=== PATIENT | male | born 1945 | race Hispanic/Latino ===

== ENCOUNTER 2017-08-07 01:42 | Inpatient (IN) | payer MEDICARE, MEDICAID ==
[2017-08-07] MEDS ORDERED: methylPREDNISolone Sod Succ/PF 125 MG/2 ML VIAL ONE (01:59)
[2017-08-07 02:08] LABS: #Basophils 0.1 thou/uL (0.0-0.2); #Eosinphils 0.1 thou/uL (0.0-0.7); #Lymphocytes 1.5 thou/uL (1.20-3.40); #Neutrophils 5.4 thou/uL (1.40-6.50); %Basophils 0.7 % (0.0-1.0); %Eosinophils 1.3 % (0.0-10.0); %Lymphocytes 18.4 % (21.0-51.0); %Monocytes 12.6 % (0.0-10.0); Hemoglobin 16.4 g/dL (14.0-18.0); Mean Corpuscular HGB CONC 33.7 g/dL (32.0-36.0); Mean Corpuscular Hemoglobin 31.9 pg (27.0-31.0); Mean Corpuscular Volume 94.8 fl (80.0-94.0); Mean Platelet Volume 7.8 fL (7.4-10.4); Platelet Count 139 thou/uL (130-400); RBC Distribution Width 12.2 % (11.5-14.5); Red Blood Cell (RBC) Count 5.15 mill/uL (4.70-6.10); White Blood Cell (WBC) Count 8.1 thou/uL (4.8-10.8)
[2017-08-07 02:29] LABS: ALT (SGPT) 35 U/L (8-55); AST (SGOT) 17 U/L (5-34); Albumin 4.2 g/dL (3.4-4.8); Alkaline Phosphatase 63 U/L (40-150); Anion Gap 10 mmol/L (10-20); BUN (Urea Nitrogen) 18 mg/dL (8.4-25.7); Bilirubin, Total 0.7 mg/dL (0.2-1.2); CK (CPK) 47 U/L (30-200); Calc. Creatinine Clearance 0 mL/min (70-130); Calcium 9.9 mg/dL (7.8-10.44); Carbon Dioxide 29 mmol/L (23-31); Chloride 102 mmol/L (98-107); Estimated GFR-MDRD 89; Globulin 3.4 g/dL (2.4-3.5); Glucose 129 mg/dL (83-110); Potassium 4.3 mmol/L (3.5-5.1); Protein, Total 7.6 g/dL (5.8-8.1); Sodium 137 mmol/L (136-145)
[2017-08-07 02:32] LABS: CKMB 1.4 ng/mL (0-6.6); Troponin I 0.041 ng/mL (< 0.028)
[2017-08-07] MEDS ORDERED: Albuterol Sulfate 2.5 mg/3 ml Neb NEB PRN (02:51)
[2017-08-07] MEDS ORDERED: Furosemide 20 MG/2 ML VIAL SLOW IVP SCH (03:15)
--- NOTE | 2017-08-07 03:44 | HP ---
PRESENTING COMPLAINT: Shortness of breath. HISTORY OF PRESENT ILLNESS: Mr. Jim Landry is a 72-year-old male who presented to the emergency room with a 2-week history of shortness of breath and wheezing. He reports his symptoms have been progressively getting worse and he was at Urgent Care about a week ago where he was treated with Augmentin and prednisone, and sent home; however, initially he got better, but his symptoms returned again and decided to present to the emergency room. He denies fevers, but he reports some chills. He denies chest pain, palpitations, PND, orthopnea, or lower extremity edema. He has no history of CHF, hypertension, and he is not on any home medications. He is a chronic smoker, although he has been trying to cut down and currently smokes about 2 cigarettes daily. He has never been diagnosed with COPD or asthma. PAST MEDICAL HISTORY: None. PAST SURGICAL HISTORY: None. FAMILY HISTORY: Reviewed and noncontributory. SOCIAL HISTORY: Does not drink alcohol. Smokes cigarettes. Denies use of illicit drugs. ALLERGIES: None. REVIEW OF SYSTEMS: 12-point review of systems conducted and negative except as stated in the HPI. PHYSICAL EXAMINATION: VITAL SIGNS: Stable. Oxygen saturation at 100% on room air. GENERAL: Not in acute distress. Lying comfortably in bed and receiving a nebulizer treatment. HEENT: Normocephalic, atraumatic. Not pale, anicteric. Moist mucous membranes. PERRLA, EOMI. RESPIRATORY: Minimal wheezing bilaterally. No crackles appreciated. Otherwise vesicular breath sounds. CARDIOVASCULAR: S1 and S2 only. Regular rate and rhythm. No murmurs, rubs, or gallop. ABDOMEN: Soft, nontender, nondistended. Bowel sounds normoactive. No hepatosplenomegaly. NEUROLOGIC: Alert and well oriented. No focal deficits. PSYCHIATRIC: Normal mood and affect. SKIN: Warm, dry, well-perfused. No rashes or lesions. PSYCHIATRIC: Normal mood and affect. SIGNIFICANT LABORATORY AND DIAGNOSTIC DATA: Troponin 0.041, BNP 776. Chest x-ray shows some haziness in bilateral lung lara. EKG: Left bundle branch block. ASSESSMENT AND PLAN: 1. Shortness of breath. This is likely from a previously undiagnosed chronic obstructive pulmonary disease exacerbation. The patient has been started on nebulizer therapy. We will place him on p.r.n. albuterol and scheduled DuoNeb, IV ceftriaxone and azithromycin, IV Solu-Medrol 40 mg q.6 hours. We will also obtain blood cultures and possible pulmonary consult depending on his response in the morning. He will very likely need an outpatient pulmonary function test. 2. Elevated troponin: He is currently chest pain free. This is likely a type 2 [id number] myocardial infarction from demand ischemia. He has no history of coronary artery disease or congestive heart failure. We will trend troponin and he might require a stress test, likely on outpatient basis. 3. Elevated BNP. No history of heart failure. He has been given one dose of furosemide. We will monitor his response and re-evaluate. 4. Tobacco abuse. The patient has been counseled on cessation. CODE STATUS: FULL CODE. MTDD
[2017-08-07 03:55] LABS: Anion Gap 9 mmol/L (10-20); BUN (Urea Nitrogen) 18 mg/dL (8.4-25.7); Calc. Creatinine Clearance 0 mL/min (70-130); Calcium 9.5 mg/dL (7.8-10.44); Carbon Dioxide 30 mmol/L (23-31); Chloride 103 mmol/L (98-107); Estimated GFR-MDRD Greater than 90; Glucose 142 mg/dL (83-110); Potassium 4.3 mmol/L (3.5-5.1); Sodium 138 mmol/L (136-145)
[2017-08-07] MEDS: Azithromycin 500 MG in Sodium Chloride 0.9% 250 ML 250 ML IVPB SCH (04:10)
[2017-08-07] MEDS: cefTRIAXone\\ROCEPHIN 1 GM, Syringe 0.4 ML in Sterile Water 9.6 ML SLOW IVP SCH (05:06)
[2017-08-07 06:23] LABS: Troponin I 0.028 ng/mL (< 0.028)
--- NOTE | 2017-08-07 08:05 | RAD ---
SINGLE VIEW OF CHEST: Date: 08/07/17 COMPARISON: None. HISTORY: Difficulty breathing for 3 weeks and dyspnea. FINDINGS: Single view of the chest shows cardiomediastinal silhouette which is upper limits of normal in size. There is no evidence of consolidation, mass, or pleural effusion. Increased interstitial lung marking s are present. IMPRESSION: No evidence of acute cardiopulmonary disease. POS: [facility]
[2017-08-07] MEDS: guaiFENesin ER 600 MG TAB PO SCH ×2 (08:15→20:17)
[2017-08-07] MEDS ORDERED: cefTRIAXone\\ROCEPHIN 1 GM in Sodium Chloride 0.9% 100 ML IVPB SCH (09:00)
[2017-08-07] MEDS ORDERED: Prevnar 13-Val Conj/PF 0.5 ML SYRINGE IM ONE (09:00)
[2017-08-07] MEDS ORDERED: predniSONE 20 MG TAB PO SCH (09:00)
[2017-08-07 13:30] LABS: Troponin I 0.018 ng/mL (< 0.028)
[2017-08-07] MEDS ORDERED: Regadenoson 0.4 MG/5 ML SYRINGE ONE (14:46)
[2017-08-07 19:12] LABS: Troponin I 0.017 ng/mL (< 0.028)
[2017-08-08] MEDS: cefTRIAXone\\ROCEPHIN 1 GM, Syringe 0.4 ML in Sterile Water 9.6 ML SLOW IVP SCH (04:52)
[2017-08-08] MEDS: Azithromycin 500 MG in Sodium Chloride 0.9% 250 ML 250 ML IVPB SCH (04:58)
[2017-08-08 05:18] LABS: Anion Gap 12 mmol/L (10-20); BUN (Urea Nitrogen) 26 mg/dL (8.4-25.7); Calc. Creatinine Clearance 103 mL/min (70-130); Calcium 9.9 mg/dL (7.8-10.44); Carbon Dioxide 30 mmol/L (23-31); Chloride 101 mmol/L (98-107); Estimated GFR-MDRD Greater than 90; Glucose 142 mg/dL (83-110); Potassium 4.2 mmol/L (3.5-5.1); Sodium 139 mmol/L (136-145)
[2017-08-08] MEDS: guaiFENesin ER 600 MG TAB PO SCH ×2 (08:40→20:49)
--- NOTE | 2017-08-08 10:35 | NM ---
CARDIAC SPECT: HISTORY: A 72-year-old male with shortness of breath, CHF, and hypertension. Smoker. TECHNIQUE: A myocardial perfusion scan was performed using the single isotope two day protocol with 33 millicuri es technetium 99m sestamibi injected intravenously for stress and rest images. Pharmacologic stress with Lexiscan was monitored and interpreted by Dr. Hadley. FINDINGS: A large fixed defect is seen involving the anterolateral, lateral, and inferolateral keenan. There is a reversible defect in the anteroseptal and septal keenan. There is suggestion of a fixed defect in t he intraseptal wall. GATED SPECT LVEF: 18% WALL MOTION EXAM: Global hypokinesis. IMPRESSION: 1. Reversible ischemia in the anteroseptal and septal keenan. 2. Scarring in the lateral, anterolateral, inferolateral keenan, and probably inferoseptal wall. POS: [facility]
[2017-08-08] MEDS ORDERED: Furosemide 40 MG/4 ML VIAL SLOW IVP SCH (11:30)
[2017-08-08] MEDS ORDERED: Potassium Chloride 20 MEQ TAB PO SCH ×2 (11:30)
[2017-08-08] MEDS ORDERED: Losartan 25 MG TAB PO SCH ×2 (11:45)
[2017-08-08] MEDS ORDERED: Aspirin 81 mg Enteric Coated Tablet PO SCH (11:45)
--- NOTE | 2017-08-08 13:02 | PDOC.PN ---
- Subjective Encounter Start Date: 08/08/17 Encounter Start Time: 13:02 Pt seen for followup re: copd exacerbation. Denies chest pain. Shortness of breath is better. No fevers or chills. - Objective Vital Signs & Weight: Vital Signs (12 hours) Temp Pulse Resp BP Pulse Ox 08/08/17 11:33 97.6 F 91 19 129/73 93 L 08/08/17 08:40 97.4 F L 99 20 137/81 08/08/17 03:57 97.4 F L 99 20 130/81 96 Weight Weight 187 lb 12.8 oz I&O: 08/07/17 08/08/17 08/09/17 06:59 06:59 06:59 Intake Total 260 1341 Output Total 950 Balance -690 1341 Result Diagrams: 08/07/17 01:57 08/08/17 03:59 Phys Exam - Physical Examination Constitutional: NAD HEENT: PERRLA, moist MMs, sclera anicteric, oral pharynx no lesions Neck: no nodes, no JVD, supple, full ROM Respiratory: no wheezing, no rales, no rhonchi, clear to auscultation bilateral Cardiovascular: RRR, no rub Gastrointestinal: soft, non-tender, no distention, positive bowel sounds Musculoskeletal: pulses present Neurological: moves all 4 limbs Psychiatric: normal affect Skin: no rash Dx/Plan (1) COPD exacerbation Code(s): J44.1 - CHRONIC OBSTRUCTIVE PULMONARY DISEASE W (ACUTE) EXACERBATION Status: Acute (2) CHF (congestive heart failure) Code(s): I50.9 - HEART FAILURE, UNSPECIFIED Status: Acute Qualifiers: Heart failure type: systolic Comment: receiving furosemide (3) CAD (coronary artery disease) Code(s): I25.10 - ATHSCL HEART DISEASE OF [place] CORONARY ARTERY W/O ANG PCTRS Status: Chronic Comment: reversible ischemia on stress test, cardiology consulted (4) Cardiomyopathy Code(s): I42.9 - CARDIOMYOPATHY, UNSPECIFIED Status: Chronic Comment: started on beta leonidas and ACEI by cardiology service (5) Tobacco abuse Code(s): Z72.0 - TOBACCO USE Status: Chronic Comment: counseled - Plan * . Review of Systems - Review of Systems Constitutional: negative: fever, chills, sweats, weakness, malaise Respiratory: Cough, Dry, SOB with Excertion. negative: Shortness of Breath, Hemoptysis, Pleuritic Pain, Sputum, Wheezing Cardiovascular: negative: chest pain, palpitations, orthopnea, paroxysmal nocturnal dyspnea, edema, light headedness Gastrointestinal: negative: Nausea, Vomiting, Abdominal Pain, Diarrhea, Constipation, Melena, Hematochezia Skin: negative: Rash, Lesions, Primitivo, Bruising - Medications/Allergies Allergies/Adverse Reactions: Allergies Allergy/AdvReac Type Severity Reaction Status Date / Time No Known Allergies Allergy Verified 08/07/17 04:49 Medications: Current Medications Albuterol Sulfate (Ventolin) 2.5 mg NEB [id number] PRN PRN Reason: SOB &/or Wheezing Aspirin (Ecotrin) 81 mg PO DAILY [facility] Aspirin (Ecotrin) 81 mg PO NOW [facility] Stop: 08/08/17 13:45 Last Admin: 08/08/17 12:15 Dose: 81 mg Carvedilol (Coreg) 3.125 mg PO BID-WM [facility] Furosemide (Lasix) 40 mg SLOW IVP NOW [facility] Stop: 08/08/17 13:30 Last Admin: 08/08/17 12:15 Dose: 40 mg Guaifenesin (Mucinex) 600 mg PO Q12HR [facility] Last Admin: 08/08/17 08:40 Dose: 600 mg Azithromycin 500 mg/ Sodium (Chloride) 250 mls @ 250 mls/hr IVPB Q24HR [facility] Stop: 08/09/17 04:59 Last Admin: 08/08/17 04:58 Dose: 250 mls Ceftriaxone Sodium 1 gm/ (Syringe 0.4 ml/ Sterile Water) 10 mls @ 120 mls/hr SLOW IVP 0500 [facility] Last Admin: 08/08/17 04:52 Dose: 10 mls Losartan Potassium (Cozaar) 50 mg PO DAILY [facility] Losartan Potassium (Cozaar) 50 mg PO NOW [facility] Stop: 08/08/17 13:45 Last Admin: 08/08/17 12:15 Dose: 50 mg Methylprednisolone Sodium Succinate (Solu-Medrol) 40 mg IVP Q6HR [facility] Last Admin: 08/08/17 12:15 Dose: 40 mg Potassium Chloride (K-Dur) 40 meq PO NOW [facility] Stop: 08/08/17 13:30 Last Admin: 08/08/17 12:15 Dose: 40 meq Sodium Chloride (Flush - Normal Saline) 10 ml IVF Q12HR [facility] Last Admin: 08/08/17 08:41 Dose: 10 ml Sodium Chloride (Flush - Normal Saline) 10 ml IVF PRN PRN PRN Reason: Saline Flush
--- NOTE | 2017-08-08 14:04 | CON ---
DATE OF CONSULTATION: 08/08/2017 REASON FOR CONSULTATION: Congestive heart failure, abnormal stress test. HISTORY OF PRESENT ILLNESS: Mr. Fernandez is a 72-year-old gentleman. The patient states he has been short of breath for the last couple of weeks, but it worsened and he came to the emergency room. He has been found to have a severely abnormal nuclear medicine stress test as will be outlined below. The patient does not have chest pain or pressure, just shortness of breath. He says 2 weeks ago, he reduced his smoking to two cigarettes a day, previously smoked quite a bit of cigarettes but has decr eased for the last 2 weeks. He received intravenous steroids here with some improvement. He also had some wheezing as an outpati ent. PAST SURGICAL HISTORY: Negative. FAMILY HISTORY: Negative for heart disease at a young age. PAST MEDICAL HISTORY: Of note of diabetes. SOCIAL HISTORY: As outlined above cigarettes. ALLERGIES: None. REVIEW OF SYSTEMS: Constitutional: No significant weight gain or loss. Vision: No changes. Heari ng: No changes. Pulmonary: Positive for cough and wheezing. Cardiac: No chest pain. Gastrointes tinal: No nausea, vomiting, or diarrhea. Skin: No rashes. Neurologic: No unilateral weakness or numbness. Psychiatric: No unusual depression or anxiety. PHYSICAL EXAMINATION: GENERAL: This is a pleasant 72-year-old gentleman, is coughing intermittently very severely. VITAL SIGNS: He is afebrile, temperature 97.4, blood pressure 137/81, pulse 90 and it is regular. LUNGS: Some rhonchi, no wheezing. CARDIOVASCULAR: Normal S1, normal S2. ABDOMEN: Soft, nontender. EXTREMITIES: No clubbing, cyanosis or edema. Peripheral pulses are intact. SKIN: Warm and dry. PERTINENT LABORATORY DATA: BNP 774, potassium is 4.2, creatinine 0.8. Troponin is 0.028. IMAGING: Chest x-ray, no acute findings. A nuclear medicine stress test revealed an ejection fracti on of 18%, very large fixed defect of the anterolateral, inferolateral and inferoseptal wall, some re versible ischemia in the anterior wall. EKG: Sinus rhythm with left ventricular hypertrophy, repolarization and T-wave inversions in the inf erior leads. ASSESSMENT: 1. Congestive heart failure, systolic, likely acute on chronic. 2. Likely severe underlying coronary artery disease. 3. Probable some degree of chronic obstructive pulmonary disease. PLAN: 1. Start angiotensin receptor blockers. We will avoid SIVA inhibitors as he already has a severe cou gh. 2. Low-dose beta blockers. 3. Furosemide and potassium. 4. We will need to proceed to cardiac catheterization. We will need to further discuss the risk. I discussed the procedure to some degree with the patient, he is [place] speaking only. We will come back later this afternoon and discuss further to see if the cough is improved prior to proceeding the catheterization.
[2017-08-08] MEDS: Furosemide 20 MG/2 ML VIAL SLOW IVP SCH (14:06)
[2017-08-08] MEDS: Carvedilol 3.125 MG TAB PO SCH (17:04)
[2017-08-09] MEDS: Azithromycin 500 MG in Sodium Chloride 0.9% 250 ML 250 ML IVPB SCH (04:27)
[2017-08-09 05:28] LABS: Anion Gap 10 mmol/L (10-20); BUN (Urea Nitrogen) 30 mg/dL (8.4-25.7); Calc. Creatinine Clearance 98 mL/min (70-130); Calcium 9.9 mg/dL (7.8-10.44); Carbon Dioxide 33 mmol/L (23-31); Cardiac Risk 3.7 (Less than 4.5); Chloride 101 mmol/L (98-107); Cholesterol 176 mg/dl (< 200 Desired); Estimated GFR-MDRD Greater than 90; Glucose 141 mg/dL (83-110); HDL Cholesterol 47 mg/dL (>60 Neg Risk); LDL Cholesterol, Calculated 110 mg/dL; Potassium 4.8 mmol/L (3.5-5.1); Sodium 139 mmol/L (136-145); Triglycerides 94 mg/dL (Less than 150)
[2017-08-09] MEDS: guaiFENesin ER 600 MG TAB PO SCH (05:30)
[2017-08-09] MEDS: Carvedilol 3.125 MG TAB PO SCH (05:31)
[2017-08-09] MEDS: cefTRIAXone\\ROCEPHIN 1 GM, Syringe 0.4 ML in Sterile Water 9.6 ML SLOW IVP SCH (05:32)
[2017-08-09] MEDS: Furosemide 20 MG/2 ML VIAL SLOW IVP SCH ×2 (05:44→16:39)
[2017-08-09] MEDS ORDERED: Iopamidol 370 76% 100 ML VIAL ONE (08:51)
[2017-08-09] MEDS ORDERED: Aspirin 81 mg Enteric Coated Tablet PO SCH (09:00)
[2017-08-09] MEDS ORDERED: Losartan 25 MG TAB PO SCH ×2 (09:00)
[2017-08-09] MEDS ORDERED: Lidocaine 1% (PF) 30 ML VIAL ONE (09:25)
[2017-08-09] MEDS ORDERED: Nitroglycerin 2% Ointment 1 INCH/1 GM Packet ONE ×2 (10:36→10:38)
[2017-08-09] MEDS ORDERED: Nitroglycerin 4.9 GM Bottle ONE (10:38)
[2017-08-09] MEDS ORDERED: Furosemide 40 MG/4 ML VIAL ONE ×2 (10:41→11:28)
[2017-08-09] MEDS ORDERED: Ketamine 50 MG/ML VIAL ONE ×2 (11:04→16:57)
[2017-08-09] MEDS ORDERED: Midazolam HCl 5 mg/5 ml Vial ONE ×2 (11:05→11:25)
[2017-08-09] MEDS ORDERED: Fentanyl 250 MCG/5 ML VIAL ONE (11:05)
[2017-08-09] MEDS ORDERED: Communication Order-Pharmacy FS SCH (11:17)
[2017-08-09] MEDS ORDERED: Vecuronium 10 MG VIAL ONE ×2 (11:26→15:35)
[2017-08-09] MEDS ORDERED: PHENYLEPHRINE-NS 100 MCG/ML 10 ML SYRINGE ONE ×3 (11:26→15:35)
[2017-08-09] MEDS ORDERED: Phenylephrine HCL 10 MG/ML VIAL ONE (11:26)
[2017-08-09] MEDS ORDERED: DOBUTamine 500 mg/250 ml 250 ML ONE (11:26)
[2017-08-09] MEDS ORDERED: MILRINONE LACTATE SLOW IVP SCH (12:00)
[2017-08-09] MEDS ORDERED: SODIUM CHLORIDE 0.9% SLOW IVP SCH (12:00)
--- NOTE | 2017-08-09 12:02 | CON ---
DATE OF CONSULTATION: 08/09/2017 REASON FOR CONSULTATION: Evaluate patient for emergency coronary bypass grafting. HISTORY OF PRESENT ILLNESS: Mr. Fernandez is a 72-year-old gentleman who was admitted with worsening shortness of breath over the last couple of weeks. He has been a heavy smoker up until he began to be short of breath when he began to cut back on his cigarette intake. He came to the emergency department, had a nuclear stress test performed which was markedly abnormal. This showed an ejection fraction of 18%. He had a very large fixed defect in the anterolateral , inferolateral and inferoseptal wall with some brief reversible ischemia in the anterior wall. He underwent cardiac catheterization today revealing severe three-vessel occlusive disease. His right coronary was completely occluded. The circumflex distally is occluded. He has severe lesions in the LAD and diagonal. Potential bypass bypassable targets include LAD, diagonal, first OM, and PDA. Ejection fraction on ventriculogram is less than 20%. Currently, the patient is in the recovery area. His family is here with him and incredibly hysterical. PAST MEDICAL HISTORY: Documented has diabetes, although the patient denies diabetes. PAST SURGICAL HISTORY: None. CURRENT MEDICATIONS: None. SOCIAL HISTORY: He smoked heavily up until very recently. REVIEW OF SYSTEMS: Not performed due to language barrier. PHYSICAL EXAMINATION: GENERAL: This is a well-developed, well-nourished man with a severe cough. VITAL SIGNS: Height 5 feet 6 inches, weight 187 pounds, BSA is 1.99, temperature is 98.4, pulse is 81 and regular, blood pressure is 113/63. HEENT: Sclerae nonicteric. Pupils equal, round bilaterally. NECK: Supple. He has no adenopathy. CHEST: Chest has rhonchi bilaterally. There also rales present. HEART: Heart rhythm is regular, without murmur. ABDOMEN: Soft and nontender. EXTREMITIES: There is minimal edema. ASSESSMENT AND PLAN: This is a 72-year-old gentleman with severe 3-vessel disease, congestive heart failure, depressed left ventricular ejection fraction , fixed defects on his nuclear scan, probable chronic obstructive pulmonary disease. I have discussed coronary artery bypass grafting for salvage with he and his family. Through his family they have described what we have discussed and he is willing to proceed as soon as an OR is available. Due to the fixed defects, chronic obstructive pulmonary disease, and depressed left ventricular function, this is a high risk procedure with a high liklihood of complications, but without surgery he is doomed to medical failure. LILIA
[2017-08-09 12:56] LABS: Hemoglobin A1c 5.9 % (4.0-6.0)
[2017-08-09] MEDS ORDERED: Albumin 5% 500 ML ONE (14:15)
--- NOTE | 2017-08-09 14:36 | PQF ---
CLINICAL DOCUMENTATION IMPROVEMENT CLARIFICATION FORM: ICD-10 Updated PLEASE DO AN ADDENDUM TO THE PROGRESS NOTE WITH ANY DOCUMENTATION UPDATES OR ADDITIONS AND CARRY THROUGH TO DC SUMMARY. THANK YOU. DATE: 08/09/17 ATTN: DR. SINGH Please exercise your independent, professional judgment in responding to the clarification form. Clinical indicators are provided on the bottom of this form for your review Please check appropriate box(s) to clarify if the following diagnosis has been ruled in or ruled out: NSTEMI [ X ] Ruled in diagnosis [ X ] Continue to treat [ ] Resolved [ ] Ruled out diagnosis [ ] Cannot rule out diagnosis [ ] Other diagnosis [ ] Unable to determine In addition, please specify: Present on Admission (POA): [ X ] Yes [ ] No [ ] Unable to determine For continuity of documentation, please document condition throughout progress notes and discharge summary. Thank You. CLINICAL INDICATORS - SIGNS / SYMPTOMS / LABS H&P: "THIS IS LIKELY A TYPE 2 NON-ST ELEVATION MYOCARDIAL INFARCTION FROM DEMAND ISCHEMIA" TROPONIN 0.028 / 0.018 / 0.017 RISKS: CHF NEW DIAGNOSIS OF CAD TREATMENT: CARDIOLOGY CONSULT HEART CATH ASPIRIN (ER-PRESENT) (This form is maintained as a part of the permanent medical record) 2014 [employer]. All Rights Reserved [email or web address] Office: [phone] [facility] CENTERAnkit
[2017-08-09] MEDS ORDERED: Insulin Regular 300 UNITS/3 ML VIAL ONE (15:11)
[2017-08-09] MEDS ORDERED: Potassium Chloride 60 MEQ/30 ML VIAL ONE (15:35)
[2017-08-09] MEDS ORDERED: Lidocaine 2% PF 100 mg/5 ml Syringe ONE (15:35)
[2017-08-09] MEDS ORDERED: Hydrocortisone Sod Succ/PF 100 mg/2 ml Vial ONE (15:35)
[2017-08-09] MEDS ORDERED: Magnesium 5 GM/10 ML VIAL ONE (15:35)
[2017-08-09] MEDS ORDERED: Heparin 30,000 units/30 ml VIAL ONE (15:35)
[2017-08-09] MEDS ORDERED: CEFAZOLIN/Water 2 GM/20 ML SYRINGE ONE (15:35)
[2017-08-09] MEDS ORDERED: Norepinephrine 4 MG/4 ML VIAL ONE (15:35)
[2017-08-09] MEDS ORDERED: Protamine Sulfate 250 MG/25 ML VIAL ONE (15:35)
[2017-08-09] MEDS ORDERED: Sodium Bicarb 50 MEQ/50 ML Abboject 8.4% SYRINGE ONE (15:35)
[2017-08-09] MEDS ORDERED: Heparin 5,000 UNITS/ML VIAL ONE ×2 (15:35)
[2017-08-09] MEDS ORDERED: Papaverine 60 MG/2 ML VIAL ONE (15:35)
[2017-08-09] MEDS ORDERED: Thrombin 5000 UNITS/5 ML VIAL ONE (15:35)
[2017-08-09] MEDS ORDERED: Calcium Chloride 1 GM/10 ML Abboject SYRINGE ONE (15:35)
[2017-08-09] MEDS ORDERED: ePHEDrine/0.9% NaCl/PF SYRINGE 50 mg/10 ml ONE (15:35)
[2017-08-09] MEDS ORDERED: Aminocaproic Acid 5 GM/20 ML VIAL ONE (15:35)
[2017-08-09] MEDS ORDERED: Albumin 25% 25 GM/100 ML BOT ONE (15:35)
[2017-08-09] MEDS ORDERED: Cardioplegic Soln 1,000 ML BAG ONE (15:35)
[2017-08-09] MEDS ORDERED: Post-Op Insulin Drip Protocol IVPB ONE ×2 (15:45)
[2017-08-09] MEDS ORDERED: Guaifenesin DM 100-10/5 ML UDCUP PO PRN (15:45)
[2017-08-09] MEDS ORDERED: Fentanyl 100 MCG/2 ML VIAL SLOW IVP PRN ×2 (15:45)
[2017-08-09] MEDS ORDERED: Ondansetron HCl/PF 4 MG/2 ML Vial IVP PRN (15:45)
[2017-08-09] MEDS ORDERED: Bisacodyl 5 MG TAB PO PRN (15:45)
[2017-08-09] MEDS ORDERED: Norepinephrine 8 MG/0.9% NS 250 ML IVPB PRN (15:45)
[2017-08-09] MEDS ORDERED: Potassium Chloride 20 MEQ/100 ML PREMIX BAG IVPB PRN (15:45)
[2017-08-09] MEDS ORDERED: Hetastarch 6% 500 ML 500 ML IVPB PRN (15:45)
[2017-08-09] MEDS ORDERED: Acetaminophen 325 MG TAB PO PRN (15:45)
[2017-08-09] MEDS ORDERED: HYDROcodone/Acetaminophen 5/325 mg Tablet PO PRN ×2 (15:45)
[2017-08-09] MEDS ORDERED: Mag-Al 1200 mg/1200 mg/30 ML UDCUP PO PRN (15:45)
[2017-08-09] MEDS ORDERED: Nitroglycerin 50 MG/250 ML BOT 250 ML IVPB PRN (15:45)
[2017-08-09] MEDS ORDERED: Promethazine HCl 25 MG/ML VIAL IM PRN (15:45)
[2017-08-09] MEDS ORDERED: hydrALAZINE 20 MG/ML VIAL SLOW IVP PRN (15:45)
[2017-08-09] MEDS ORDERED: Amiodarone In Dextrose 200 ML IVPB SCH (15:45)
[2017-08-09] MEDS ORDERED: Bisacodyl 10 MG SUPP PR PRN (15:45)
[2017-08-09] MEDS ORDERED: DOBUTamine 500 mg/250 ml 250 ML IVPB SCH (15:45)
[2017-08-09] MEDS ORDERED: Dextrose 5% in Water 1,000 ML IV PRN (15:54)
[2017-08-09] MEDS ORDERED: Dextrose 50% Abboject 50 ML SYRINGE SLOW IVP PRN (15:54)
[2017-08-09] MEDS ORDERED: Amiodarone HCl 450 MG, Admixture Fee 1 EACH in Dextrose 5% in Water 250 ML IVPB SCH ×3 (16:15)
[2017-08-09] MEDS ORDERED: Morphine 4 MG/ML VIAL SLOW IVP PRN (16:15)
[2017-08-09] MEDS ORDERED: Magnesium 2 GM/NS 0.9% 100 ML 2 GM in Premix Bag 1 BAG IVPB SCH (16:15)
[2017-08-09 16:21] LABS: Hemoglobin 13.6 g/dL (14.0-18.0); Mean Corpuscular HGB CONC 32.9 g/dL (32.0-36.0); Mean Corpuscular Hemoglobin 31.6 pg (27.0-31.0); Mean Platelet Volume 7.6 fL (7.4-10.4); Platelet Count 147 thou/uL (130-400); RBC Distribution Width 12.1 % (11.5-14.5); Red Blood Cell (RBC) Count 4.29 mill/uL (4.70-6.10)
[2017-08-09 16:28] LABS: INR-International Normal Ratio 1.5; PTT 29.6 SEC (22.9-36.1); Prothrombin Time 18.6 SEC (12.0-14.7)
[2017-08-09] MEDS ORDERED: Sedation Protocol FS ONE (16:29)
[2017-08-09] MEDS ORDERED: DISCONTINUE PREVIOUS NARCOTIC PAIN MEDICATIONS AND BENZODIAZEPINES FS SCH ×2 (16:36)
[2017-08-09] MEDS ORDERED: Morphine 2 MG/ML SYRINGE SLOW IVP PRN (16:36)
[2017-08-09] MEDS ORDERED: Propofol 1,000 MG/100 ML VIAL IV PRN (16:36)
[2017-08-09] MEDS ORDERED: Fentanyl BOLUS 250 ML IVPB PRN ×2 (16:36)
[2017-08-09] MEDS ORDERED: fentaNYL Citrate/PF 2,000 MCG in Sodium Chloride 0.9% 60 ML IV SCH (16:36)
[2017-08-09] MEDS ORDERED: Lorazepam 2 MG/ML VIAL SLOW IVP PRN (16:36)
[2017-08-09 16:39] LABS: Anion Gap 11 mmol/L (10-20); BUN (Urea Nitrogen) 32 mg/dL (8.4-25.7); Calc. Creatinine Clearance 73 mL/min (70-130); Calcium 8.6 mg/dL (7.8-10.44); Carbon Dioxide 26 mmol/L (23-31); Chloride 108 mmol/L (98-107); Estimated GFR-MDRD 65; Glucose 195 mg/dL (83-110); Potassium 4.2 mmol/L (3.5-5.1); Sodium 141 mmol/L (136-145)
[2017-08-09] MEDS: D5 1/2 NS w/20 mEq KCL 1,000 ML IV SCH (16:43)
[2017-08-09 16:45] LABS: Band 21 % (5-11); Lymphocytes 7 % (21-51); MDiff Complete? YES; Monocytes 4 % (0-10); Neutrophil 67 % (42-75); PLT Morphology Comment Appears Adequate; Reactive Lymphocytes 1 % (0-10)
--- NOTE | 2017-08-09 16:46 | PDOC.PN ---
- Subjective Encounter Start Date: 08/09/17 Encounter Start Time: 08:00 Pt seen for followup re: NSTEMI. Denies chest pain, shortness of breath, fevers or chills. - Objective MAR Reviewed: Yes Vital Signs & Weight: Vital Signs (12 hours) Temp Pulse Resp BP BP Pulse Ox 08/09/17 16:14 96 110/52 L 08/09/17 08:00 98.4 F 81 20 08/09/17 07:33 98.4 F 81 20 113/63 92 L Weight Weight 187 lb 8 oz I&O: 08/08/17 08/09/17 08/10/17 06:59 06:59 06:59 Intake Total 1822 Output Total 425 Balance 1397 Result Diagrams: 08/09/17 16:08 08/09/17 16:08 Additional Labs: Accuchecks 08/09/17 08/09/17 08/09/17 16:11 15:33 15:05 POC Glucose 172 H 183 H 201 H 08/09/17 08/09/17 08/09/17 14:25 13:55 13:14 POC Glucose 204 H 151 H 128 H 08/09/17 12:37 POC Glucose 120 H EKG Reviewed by me: Yes (Tele: NSR) Phys Exam - Physical Examination Obese HEENT: PERRLA, moist MMs, sclera anicteric, oral pharynx no lesions Neck: no nodes, no JVD, supple, full ROM Respiratory: no wheezing, no rales, no rhonchi, clear to auscultation bilateral Cardiovascular: RRR, no rub Gastrointestinal: soft, non-tender, no distention, positive bowel sounds Neurological: moves all 4 limbs Psychiatric: normal affect Dx/Plan (1) NSTEMI (non-ST elevated myocardial infarction) Code(s): I21.4 - NON-ST ELEVATION (NSTEMI) MYOCARDIAL INFARCTION Status: Acute Comment: Pt had cath followed by CABG (2) COPD exacerbation Code(s): J44.1 - CHRONIC OBSTRUCTIVE PULMONARY DISEASE W (ACUTE) EXACERBATION Status: Acute Comment: continue oxygen, bronchodilators (3) CHF (congestive heart failure) Code(s): I50.9 - HEART FAILURE, UNSPECIFIED Status: Acute Qualifiers: Heart failure type: systolic Comment: continue furosemide (4) CAD (coronary artery disease) Code(s): I25.10 - ATHSCL HEART DISEASE OF [place] CORONARY ARTERY W/O ANG PCTRS Status: Chronic Comment: Had cath and CABG today (5) Cardiomyopathy Code(s): I42.9 - CARDIOMYOPATHY, UNSPECIFIED Status: Chronic Comment: continue beta leonidas and ACEI (6) Tobacco abuse Code(s): Z72.0 - TOBACCO USE Status: Chronic - Plan * . Review of Systems - Review of Systems Constitutional: negative: fever, chills, sweats, weakness, malaise Respiratory: Cough, SOB with Excertion. negative: Dry, Shortness of Breath, Hemoptysis, Pleuritic Pain, Sputum, Wheezing Cardiovascular: negative: chest pain, palpitations, orthopnea, paroxysmal nocturnal dyspnea, edema, light headedness Gastrointestinal: negative: Nausea, Vomiting, Abdominal Pain, Diarrhea, Constipation, Melena, Hematochezia Genitourinary: negative: Dysuria, Frequency, Incontinence, Hematuria, Retention - Medications/Allergies Allergies/Adverse Reactions: Allergies Allergy/AdvReac Type Severity Reaction Status Date / Time No Known Allergies Allergy Verified 08/07/17 04:49 Medications: Current Medications Acetaminophen (Tylenol) 650 mg PO Q6H PRN PRN Reason: Headache/Fever Or Mild Pain Al Hydroxide/Mg Hydroxide (Maalox) 30 ml PO Q4H PRN PRN Reason: Indigestion Albumin Human (Albumin 5%) 12.5 gm IVPB Q6H PRN PRN Reason: To Maintain SBP> 90 mmHG Stop: 08/10/17 15:46 Albumin Human (Albumin 5%) 25 gm IVPB Q6H PRN PRN Reason: To Maintain SBP > 90 mmHG Stop: 08/10/17 15:46 Albuterol/Ipratropium (Duoneb) 3 ml NEB [id number] PRN PRN Reason: SHORTNESS OF BREATH Albuterol/Ipratropium (Duoneb) 3 ml NEB [id number] [facility] Aspirin (Aspirin) 325 mg PO DAILY [facility] Bisacodyl (Dulcolax) 10 mg PO Q12H PRN PRN Reason: Constipation Bisacodyl (Dulcolax) 10 mg [place] Q12H PRN PRN Reason: Constipation Budesonide (Pulmicort Neb Solution) 0.5 mg INH BID-RT [facility] Cefazolin Sodium (Ancef) 2 gm SLOW IVP Q8HR [facility] Stop: 08/10/17 14:01 Dextrose/Water (Dextrose 50%) 25 gm SLOW IVP PRN PRN PRN Reason: PER HYPOGLYCEMIC PROTOCOL Famotidine (Pepcid) 20 mg SLOW IVP Q12HR [facility] Glucagon (Glucagon) 1 mg SC PRN PRN PRN Reason: PER HYPOGLYCEMIC PROTOCOL Guaifenesin/Dextromethorphan (Robitussin Dm) 15 ml PO Q4H PRN PRN Reason: Cough Hydralazine HCl (Apresoline) 10 mg SLOW IVP Q6H PRN PRN Reason: To Maintain SBP< 140mmHG Ceftriaxone Sodium 1 gm/ (Syringe 0.4 ml/ Sterile Water) 10 mls @ 120 mls/hr SLOW IVP 0500 [facility] Last Admin: 08/09/17 05:32 Dose: 10 mls Potassium Chloride/Dextrose/Sod Cl (D5 1/2 Ns W/20 Meq Kcl) 1,000 mls @ 40 mls/ hr IV .Q24H [facility] Last Admin: 08/09/17 16:43 Dose: 1,000 mls Dobutamine HCl/Dextrose (Dobutamine 500 Mg/250 Ml) 250 mls @ 6.379 mls/hr IVPB INF [facility]; 2.5 MCG/KG/MIN PRN Reason: Protocol Hetastarch/Sodium Chloride (Hespan) 500 mls @ 0 mls/hr IVPB PRN PRN; As Directed PRN Reason: To Maintain SBP > 90mmHg Stop: 08/10/17 15:38 Norepinephrine Bitartrate (Levophed) 250 mls @ 0 mls/hr IVPB PRN PRN; Protocol ; Titrate PRN Reason: To maintain SBP > 90 mmHG Magnesium Sulfate 2 gm/ Device 100 mls @ 100 mls/hr IVPB NOW [facility] Stop: 08/09/17 18:15 Last Admin: 08/09/17 16:43 Dose: 100 mls Magnesium Sulfate 2 gm/ Device 100 mls @ 100 mls/hr IVPB QAM [facility] Stop: 08/11/17 09:59 Nitroglycerin/Dextrose (Nitroglycerin 50 Mg/250 Ml Bot) 250 mls @ 0 mls/hr IVPB PRN PRN; Protocol; Titrate PRN Reason: To Maintain SBP< 140mmHG Insulin Human Regular 100 (units/ Sodium Chloride) 101 mls @ 0 mls/hr IVPB INF ERNESTO; As Directed PRN Reason: Protocol Dextrose/Water (D5w) 1,000 mls @ 0 mls/hr IV INF PRN; As Directed PRN Reason: PRN HYPOGLYCEMIC PROTOCOL Amiodarone HCl 450 mg/Miscellaneous Medication 1 each/ Dextrose/Water 259 mls @ 0 mls/hr IVPB INF ERNESTO; As Directed PRN Reason: Protocol Potassium Chloride 20 meq/ (Sodium Chloride) 110 mls @ 55 mls/hr IVPB PRN PRN PRN Reason: K level </= 4.0 Fentanyl Citrate 2,000 mcg/ (Sodium Chloride) 100 mls @ 0 mls/hr IV INF ER[facility]ST[facility]; Per Protocol PRN Reason: Protocol Stop: 09/08/17 16:36 Fentanyl Citrate (Fentanyl Bolus) 250 mls @ 0 mls/hr IVPB PRN PRN; As Directed PRN Reason: Breakthrough pain Stop: 09/08/17 16:36 Insulin Detemir (Levemir) 0 units SC ONE PRN PRN Reason: POST-OP PROTOCOL Stop: 08/12/17 15:55 Insulin Human Regular (Humulin R) 0 units SC Q4H PRN; Protocol PRN Reason: POST OP SLIDING SCALE Ketorolac Tromethamine (Toradol) 30 mg IVP Q6HR [facility] Stop: 08/12/17 18:01 Lorazepam (Ativan) 2 mg SLOW IVP Q2H PRN PRN Reason: Anxiety to achieve Martel 2-3 Stop: 09/08/17 16:36 Methylprednisolone Sodium Succinate (Solu-Medrol) 40 mg IVP Q6HR [facility] Last Admin: 08/09/17 13:04 Dose: Not Given Morphine Sulfate (Morphine) 2 mg SLOW IVP Q2H PRN PRN Reason: Breakthrough pain Stop: 09/08/17 16:36 Discontinue Previous Narcotic Pain Medications And Benzodiazepines 1 each FS .ONE [facility] Stop: 09/08/17 16:36 Ondansetron HCl (Zofran) 4 mg IVP Q6H PRN PRN Reason: Nausea/Vomiting Promethazine HCl (Phenergan) 6.25 mg IM Q4H PRN PRN Reason: Nausea/Vomiting Propofol (Diprivan) 1,000 mg IV INF PRN; Protocol PRN Reason: TO ACHIEVE MARTEL SCORE 2-3 Stop: 09/08/17 16:36
--- NOTE | 2017-08-09 16:49 | RAD ---
PORTABLE AP CHEST X-RAY 08/09/17 HISTORY: Post open heart surgery. COMPARISON: 08/07/17. FINDINGS: There have been interval postsurgical changes related to median sternotomy. Endotracheal tube is note d in place with the tip overlying the T5 vertebral body and above the level of the juan manuel. Right subc lavian central venous catheter is noted in place with the tip overlying the distal SVC near the cavoa trial junction. Mediastinal drain and left sided thoracostomy tube are noted in place. There is no pn eumothorax seen. There is increased density at the left lung base, some of which could be related to mild elevation of the left hemidiaphragm, but there is also evidence of atelectasis. A small left ple ural effusion cannot be entirely excluded. The cardiac silhouette is enlarged. Pulmonary vasculature is within normal limits. No other interval change. IMPRESSION: 1. Lines and tubes in place as described above with postsurgical changes related to median milton otomy and likely CABG. 2. Volume loss at the left lung base. A small left pleural effusion is also a possibility. 3. No evidence of a pneumothorax. 4. Cardiomegaly. POS: [facility]
[2017-08-09] MEDS: Morphine 4 MG/ML VIAL SLOW IVP PRN (17:31)
[2017-08-09] MEDS: Hydrocortisone Sod Succ/PF 100 mg/2 ml Vial IVP SCH (17:38)
[2017-08-09] MEDS: Ketorolac Tromethamine 30 MG/ML VIAL IVP SCH (17:38)
[2017-08-09 17:47] LABS: CO2 Tension 62.3 mmHg (35.0-45.0); O2 Tension (PaO2) 71.9 mmHg (80.0-100.0); pH, Arterial 7.26 (7.35-7.45)
[2017-08-09 17:48] LABS: Actual Bicarbonate (HCO3a) 27.2 mEq/L (22-26); Base Excess (BEa) -1.2 mEq/L (0 (+/-) 2.5); Calcium, Ionized 1.2 mmol/L (1.12-1.30); Hematocrit-ABG 41.3 % (42.0-52.0); Hemoglobin (Hb) 1.3 g/dL (14.0-18.0); Puncture Site ALINE
[2017-08-09 17:49] LABS: ALV-art Gradient 206.725 (0-20)
[2017-08-09] MEDS ORDERED: Budesonide 0.5 MG/2 ML NEB INH SCH (18:30)
[2017-08-09 21:38] LABS: Hemoglobin 12.9 g/dL (14.0-18.0)
--- NOTE | 2017-08-09 21:41 | CON ---
DATE OF CONSULTATION: 08/09/2017 SERVICE: Pulmonary Medicine. REASON FOR CONSULTATION: ICU patient. HISTORY OF PRESENT ILLNESS: Patient is a 72-year-old male with past medical history signifi cant for coronary artery disease. Ultimately, he presented to the hospital with increasing shortness of breath. He has greater than 25-[id number]-egom history of smoking. He is treated for COPD exacerbatio n, but the workup also demonstrated a severe coronary artery disease and a new diagnosis of systolic heart failure. He had disease that could not be repaired percutaneously. As such, he was referred f or a Cardiothoracic Surgery. He is postop day 0 from coronary bypass graft. He is on mechanical allyn tilation. He cannot provide me with any additional elements of the history. PAST MEDICAL HISTORY: 1. COPD, new diagnosis. 2. Chronic systolic heart failure, new diagnosis. 3. Coronary artery disease. 4. Hypertension. 5. Dyslipidemia. PAST SURGICAL HISTORY: Coronary artery bypass graft, postop day #0. FAMILY HISTORY: Noncontributory. SOCIAL HISTORY: Negative for alcohol or illicit drug use. He is a daily smoker until a week ago, wa s smoking 2 packs on a daily basis and has done that for greater than 40 years. He has no known expo sure to chemicals, dusts, asbestos, or tuberculosis. ALLERGIES: No known drug allergies. MEDICATIONS: List of his inpatient medications were reviewed. No updates were made at this time. REVIEW OF SYSTEMS: This cannot be obtained as the patient is currently intubated and sedated. PHYSICAL EXAMINATION: VITAL SIGNS: Afebrile, pulse 88, blood pressure 120/57, respirations 11, saturation 92% on 50% FIO2 and a PEEP of 5. GENERAL: Patient is intubated and sedated. HEENT: Normocephalic, atraumatic. Sclerae are white, conjunctivae pink. Oral and nasal mucosa is m oist without lesions. Pupils go from 2 mm to 1 mm with light. They are symmetric. LUNGS: Decent air entry. There is a prolonged expiratory phase based on ventilator waveforms. No w heezing or rhonchi are appreciated. HEART: Rate irregular. ABDOMEN: Soft, nontender, nondistended. Bowel sounds are positive. MUSCULOSKELETAL: No cyanosis or clubbing. There is no pitting in the bilateral lower extremities. NEUROLOGIC: Grossly nonfocal. LABORATORY DATA: WBC 30.0, hemoglobin 13.6, platelets 147,000. This was postop. INR 1.5. Sodium 1 41, potassium 4.2. Creatinine 1.11. Basic metabolic profile is otherwise unremarkable. On presenta tion, he had liver function studies that were essentially unremarkable. BNP 774, troponin 0.041, was previously down trending. IMAGING: Chest x-ray demonstrates endotracheal tube in good position. Sternotomy wires are now evid ent. There is a small left-sided pleural effusion. A right subclavian central venous catheter termi nates in good position. Right-sided thoracostomy drain is in place. There is also mediastinal drain , but I cannot see where it terminates. Otherwise, I do not see any acute cardiopulmonary abnormalit y. ASSESSMENT: 1. Chronic obstructive pulmonary disease with acute exacerbation. 2. Acute hypoxic respiratory failure. 3. Coronary artery disease, status post coronary artery bypass graft, postop day #0. DISCUSSION: We will hold sedating medications until the patient wakes up at touch. At that point, w e will continue our sedation. He will be left on mechanical ventilation overnight. I will deescalat e the steroids to 40 mg once daily. We will continue frequent nebulized medications and antibiotic. Pulmonary Critical Care will continue to follow closely. Hopefully, we will be able to successfully transition him off the ventilator starting tomorrow morning. CRITICAL CARE TIME: Thirty minutes.
[2017-08-09 21:50] LABS: Potassium 4.6 mmol/L (3.5-5.1)
[2017-08-09] MEDS ORDERED: Budesonide 0.5 MG/2 ML NEB ONE (22:08)
[2017-08-09] MEDS: CEFAZOLIN/Water 2 GM/20 ML SYRINGE SLOW IVP SCH (22:40)
[2017-08-09] MEDS: Famotidine/PF 20 mg/2ml Vial SLOW IVP SCH (23:35)
[2017-08-10] MEDS: Hydrocortisone Sod Succ/PF 100 mg/2 ml Vial IVP SCH ×4 (00:22→18:29)
[2017-08-10] MEDS: Ketorolac Tromethamine 30 MG/ML VIAL IVP SCH ×4 (00:24→18:30)
[2017-08-10] MEDS: cefTRIAXone\\ROCEPHIN 1 GM, Syringe 0.4 ML in Sterile Water 9.6 ML SLOW IVP SCH (05:39)
[2017-08-10] MEDS: CEFAZOLIN/Water 2 GM/20 ML SYRINGE SLOW IVP SCH ×2 (05:42→14:34)
[2017-08-10 06:37] LABS: Actual Bicarbonate (HCO3a) 27.4 mEq/L (22-26); Base Excess (BEa) 1.2 mEq/L (0 (+/-) 2.5); CO2 Tension 50.7 mmHg (35.0-45.0); Calcium, Ionized 1.2 mmol/L (1.12-1.30); Hematocrit-ABG 34.2 % (42.0-52.0); Hemoglobin (Hb) 11.5 g/dL (14.0-18.0); O2 Tension (PaO2) 92.1 mmHg (80.0-100.0); pH, Arterial 7.35 (7.35-7.45)
[2017-08-10 06:38] LABS: ALV-art Gradient 269.325 (0-20); Puncture Site RBA
--- NOTE | 2017-08-10 07:41 | RAD ---
SINGLE VIEW OF THE CHEST: COMPARISON: 08/09/17. HISTORY: Status post open heart surgery. FINDINGS: A single view of the chest shows an enlarged but stable cardiomediastinal silhouette. The lines and tubes are unchanged in position. There appears to be a small left pleural effusion. No pneumothorax is visualized. IMPRESSION: Stable left pleural effusion. POS: [facility]
--- NOTE | 2017-08-10 08:07 | OP ---
DATE OF PROCEDURE: 08/09/2017 PREOPERATIVE DIAGNOSES: Coronary artery disease/status post-myocardial infarction/congestive heart f ailure/pulmonary edema/depressed left ventricular ejection fraction. POSTOPERATIVE DIAGNOSES: Coronary artery disease/status post-myocardial infarction/congestive heart failure/pulmonary edema/depressed left ventricular ejection fraction. PROCEDURE: Emergency coronary artery bypass grafting x3: 1. Left internal mammary artery to 1.5 mm left anterior descending -- good conduit and diffusely dis eased target -- this is not a redo target. 2. Reverse saphenous vein to 1.5 mm OM1 -- good conduit and diffusely diseased target -- this is not a redo target. 3. Reverse saphenous vein to 1.5 mm PDA -- good conduit and diffusely diseased target -- this is not a redo target. Note, the inferolateral wall was completely encased in scar. There was a bypassable OM2 that I did not bypass due to the scar. The diagonal one was not bypassed due to size criteria. SURGEONS: 1. Yaniv Goodwin M.D. 2. Rafi Hodge MD. ANESTHESIA: General endotracheal -- Dr. Suma Druan and Dr. Lynn Gaffney with Estela Blackwood CRNA. PUMP TIME: 71 minutes. CROSS-CLAMP TIME: 30 minutes. LOW CORE TEMP: 32-degree Celsius. ESTATE CONSERVATOR: Nelson Cervantes. DRAINS: 24-Gibral[place]arian chest tubes x3. DRIPS: Dobutamine at 2.5 mcg/kg, Levophed at 20 mcg, amiodarone and insulin at 6 units an hour. TRANSFUSIONS: None. DESCRIPTION OF PROCEDURE: After consent was obtained, the patient was brought to the operating room and placed supine position on the operating room table. Appropriate anesthetic monitor was placed an d general endotracheal anesthesia induced. Chest, abdomen and legs were prepped and draped in the [facility] sterile fashion. Greater saphenous vein was harvested from the left lower extremity using endosc opic technique. Wounds were irrigated and closed in layers. Median sternotomy was performed. Left internal mammary artery was harvested as a pedicle graft. The patient was systemically heparinized. Distal pedicle was divided and infused with papaverine. Thymic fat and pericardium were divided wit h electrocautery. Pericardial stay sutures were placed. Aortic and atrial cannulation was performed . After adequate heparinization, retrograde prime was performed. The patient was placed on cardiopu lmonary bypass. Distal targets were marked. The myocardium appearance was as above. Aortic cross-c lamp was applied and antegrade sanguinous cardioplegic arrest obtained. One liter of antegrade cold [place] cardioplegia was given. Topical cold solution was used. Reverse saphenous vein was anastomosed to the PDA in end-to-side fashion with running 7-0 Prolene sut ure. Anastomosis was tested and was hemostatic. Reverse saphenous vein was anastomosed to the OM in end-to-side fashion with running 7-0 Prolene suture. Anastomosis tested and was hemostatic. Mammar y artery was brought through a window in the pericardium and anastomosed to the LAD in end-to-side fa shion with running 7-0 Prolene suture. On release of the mammary clamps, good hooding in the anastom osis and good distal flow. Pedicle was secured with interrupted 6-0 Prolene sutures. Cross-clamp wa s removed and partial occluding clamp placed. Saphenous veins were anastomosed to individual punch s ites in the aorta with running 6-0 Prolene suture. Partial occluding clamp was removed and grafts de aired. Anastomoses were inspected for hemostasis, which was good. The patient was warmed and gently weaned from cardiopulmonary bypass. After resumption of sinus rhythm, good hemodynamics, and temper ature greater than 36.5, bypass was discontinued. Transfusions were given. Decannulation was perfor med and pursestring sutures secured. Aortic cannulation site was reinforced with 4-0 Prolene suture. Protamine was administered. Vancomycin paste was placed on the sternal edges. After adequate hemo stasis had been obtained in the mediastinum, a 24-Gibral[place]arian chest tubes were placed. Sternum was treate d with vancomycin paste. Sternum was closed with three wires in the manubrium and one in the distal sternum. Four zip ties were placed in the body of the sternum. Sternum was treated with platelet-ri ch plasma. Wires were twisted and buried. Zip ties were tightened and cut. Wounds were irrigated, treated with platelet-poor plasma, and closed in multiple layers. The patient tolerated the procedur e fairly well and was transferred to Intensive Care Unit in stable, but critical condition.
[2017-08-10 08:09] LABS: Anion Gap 9 mmol/L (10-20); BUN (Urea Nitrogen) 35 mg/dL (8.4-25.7); Calc. Creatinine Clearance 64 mL/min (70-130); Calcium 8.5 mg/dL (7.8-10.44); Carbon Dioxide 28 mmol/L (23-31); Chloride 111 mmol/L (98-107); Estimated GFR-MDRD 54; Glucose 149 mg/dL (83-110); Potassium 4.1 mmol/L (3.5-5.1); Sodium 144 mmol/L (136-145)
[2017-08-10 08:38] LABS: #Lymphocytes 0.9 thou/uL (1.20-3.40); #Monocytes 1.5 thou/uL (0.11-0.59); #Neutrophils 12.2 thou/uL (1.40-6.50); %Basophils 0.1 % (0.0-1.0); %Eosinophils 0.3 % (0.0-10.0); %Lymphocytes 6.4 % (21.0-51.0); %Monocytes 9.9 % (0.0-10.0); %Neutrophils 83.3 % (42.0-75.0); Hemoglobin 11.8 g/dL (14.0-18.0); Mean Corpuscular HGB CONC 31.4 g/dL (32.0-36.0); Mean Corpuscular Hemoglobin 30.4 pg (27.0-31.0); Mean Corpuscular Volume 96.7 fl (80.0-94.0); Mean Platelet Volume 8.3 fL (7.4-10.4); Platelet Count 134 thou/uL (130-400); RBC Distribution Width 12.3 % (11.5-14.5); Red Blood Cell (RBC) Count 3.88 mill/uL (4.70-6.10); White Blood Cell (WBC) Count 14.6 thou/uL (4.8-10.8)
--- NOTE | 2017-08-10 09:23 | PRG ---
DATE OF SERVICE: 08/10/2017 Mr. Fernandez is intubated on the ventilator. He is currently on pressors, Levophed as well as dobutamine. PHYSICAL EXAMINATION: VITAL SIGNS: Blood pressure is 130/50, pulse 82. LUNGS: Clear. CARDIAC: Normal S1, normal S2. ABDOMEN: Soft, nontender. EXTREMITIES: Warm, dry, no clubbing, cyanosis or edema. Good peripheral pulses. ASSESSMENT: 1. Congestive heart failure with ejection fraction below 20%. 2. Left main coronary disease with occluded right coronary and circumflex, status post surgery. 3. Diabetes. Blood sugar today 109. PLAN: 1. Try to wean pressors. 2. May need diuretics today. We will continue to follow with you.
[2017-08-10] MEDS: Magnesium 2 GM/NS 0.9% 100 ML 2 GM in Premix Bag 1 BAG IVPB SCH (09:40)
[2017-08-10] MEDS: Famotidine/PF 20 mg/2ml Vial SLOW IVP SCH (09:43)
[2017-08-10] MEDS: Aspirin 325 MG TAB PO SCH (09:45)
[2017-08-10] MEDS: Pantoprazole 40 MG VIAL IVP SCH ×2 (09:45)
[2017-08-10] MEDS ORDERED: Fentanyl BOLUS 250 ML IVPB PRN ×2 (09:58)
[2017-08-10] MEDS ORDERED: Propofol BOLUS 1,000 MG/100 ML VIAL IV PRN ×2 (09:58)
[2017-08-10] MEDS ORDERED: Propofol 1,000 MG/100 ML VIAL IV PRN (09:58)
--- NOTE | 2017-08-10 10:25 | PDOC.PN ---
- Subjective Encounter Start Date: 08/10/17 Encounter Start Time: 07:20 Pt seen for followup re: NSTEMI. Intubated, but alert, answering questions by nodding or shaking head. - Objective MAR Reviewed: Yes Vital Signs & Weight: Vital Signs (12 hours) Pulse Resp BP Pulse Ox 08/10/17 10:06 78 112/45 L 08/10/17 07:20 81 120/52 L 08/10/17 06:00 18 08/10/17 04:00 17 08/10/17 02:00 17 08/10/17 00:00 17 08/09/17 23:46 64 17 97 Weight Weight 190 lb 14.725 oz Most Recent Monitor Data Heart Rate from ECG 92 NIBP 109/64 NIBP BP-Mean 90 Respiration from ECG 18 SpO2 94 I&O: 08/09/17 08/10/17 08/11/17 06:59 06:59 06:59 Intake Total 1822 1987.1 Output Total 425 2835 Balance 1397 -847.9 Result Diagrams: 08/10/17 03:30 08/10/17 03:30 Additional Labs: Accuchecks 08/10/17 08/10/17 08/10/17 09:59 09:20 07:55 POC Glucose 142 H 140 H 109 08/10/17 08/10/17 08/10/17 07:09 06:10 05:13 POC Glucose 106 118 H 123 H 08/10/17 08/10/17 08/10/17 04:16 03:05 02:12 POC Glucose 135 H 137 H 127 H 08/10/17 08/10/17 08/09/17 01:09 00:15 23:19 POC Glucose 117 H 107 117 H 08/09/17 08/09/17 08/09/17 22:06 21:15 20:05 POC Glucose 132 H 130 H 96 08/09/17 08/09/17 08/09/17 19:07 18:14 17:05 POC Glucose 91 148 H 160 H 08/09/17 08/09/17 08/09/17 16:11 15:33 15:05 POC Glucose 172 H 183 H 201 H 08/09/17 08/09/17 08/09/17 14:25 13:55 13:14 POC Glucose 204 H 151 H 128 H 08/09/17 12:37 POC Glucose 120 H EKG Reviewed by me: Yes (Tele: NSR) Phys Exam - Physical Examination Obese HEENT: PERRLA, moist MMs, sclera anicteric ETT+ Respiratory: no wheezing, no rales, no rhonchi, clear to auscultation bilateral Cardiovascular: RRR, no rub Gastrointestinal: soft, non-tender, no distention, positive bowel sounds Neurological: moves all 4 limbs Psychiatric: normal affect Dx/Plan (1) NSTEMI (non-ST elevated myocardial infarction) Code(s): I21.4 - NON-ST ELEVATION (NSTEMI) MYOCARDIAL INFARCTION Status: Acute Comment: s/p CABG yesterday (2) COPD exacerbation Code(s): J44.1 - CHRONIC OBSTRUCTIVE PULMONARY DISEASE W (ACUTE) EXACERBATION Status: Acute Comment: On oxygen and bronchodilators, continue (3) CHF (congestive heart failure) Code(s): I50.9 - HEART FAILURE, UNSPECIFIED Status: Acute Qualifiers: Heart failure type: systolic Comment: continue furosemide (4) CAD (coronary artery disease) Code(s): I25.10 - ATHSCL HEART DISEASE OF [place] CORONARY ARTERY W/O ANG PCTRS Status: Chronic Comment: s/p CABG yesterday (5) Cardiomyopathy Code(s): I42.9 - CARDIOMYOPATHY, UNSPECIFIED Status: Chronic Comment: On beta leonidas and ACEI (6) Tobacco abuse Code(s): Z72.0 - TOBACCO USE Status: Chronic - Plan * . Review of Systems - Review of Systems Constitutional: negative: fever, chills, sweats, weakness, malaise Cardiovascular: chest pain (pain at surgical site). negative: palpitations, orthopnea, paroxysmal nocturnal dyspnea, edema, light headedness Gastrointestinal: Melena, Hematochezia. negative: Nausea, Abdominal Pain, Diarrhea, Constipation Musculoskeletal: Other (Pain at surgical site). negative: Neck Pain, Shoulder Pain, Arm Pain, Back Pain, Hand Pain, Leg Pain, Foot Pain Neurological: negative: Weakness, Numbness, Incoordination, Seizures - Medications/Allergies Allergies/Adverse Reactions: Allergies Allergy/AdvReac Type Severity Reaction Status Date / Time No Known Allergies Allergy Verified 08/07/17 04:49 Medications: Current Medications Acetaminophen (Tylenol) 650 mg PO Q6H PRN PRN Reason: Headache/Fever Or Mild Pain Al Hydroxide/Mg Hydroxide (Maalox) 30 ml PO Q4H PRN PRN Reason: Indigestion Albumin Human (Albumin 5%) 12.5 gm IVPB Q6H PRN PRN Reason: To Maintain SBP> 90 mmHG Stop: 08/10/17 15:46 Last Admin: 08/10/17 00:43 Dose: 12.5 gm Albumin Human (Albumin 5%) 25 gm IVPB Q6H PRN PRN Reason: To Maintain SBP > 90 mmHG Stop: 08/10/17 15:46 Albuterol/Ipratropium (Duoneb) 3 ml NEB [id number] PRN PRN Reason: SHORTNESS OF BREATH Albuterol/Ipratropium (Duoneb) 3 ml NEB [id number] [facility] Last Admin: 08/10/17 07:20 Dose: 3 ml Aspirin (Aspirin) 325 mg PO DAILY [facility] Last Admin: 08/10/17 09:45 Dose: Not Given Bisacodyl (Dulcolax) 10 mg PO Q12H PRN PRN Reason: Constipation Bisacodyl (Dulcolax) 10 mg TN Q12H PRN PRN Reason: Constipation Cefazolin Sodium (Ancef) 2 gm SLOW IVP Q8HR [facility] Stop: 08/10/17 14:01 Last Admin: 08/10/17 05:42 Dose: 2 gm Dextrose/Water (Dextrose 50%) 25 gm SLOW IVP PRN PRN PRN Reason: PER HYPOGLYCEMIC PROTOCOL Glucagon (Glucagon) 1 mg SC PRN PRN PRN Reason: PER HYPOGLYCEMIC PROTOCOL Hydralazine HCl (Apresoline) 10 mg SLOW IVP Q6H PRN PRN Reason: To Maintain SBP< 140mmHG Hydrocortisone Sodium Succinate (Solu-Cortef) 50 mg IVP Q6HR [facility] Last Admin: 08/10/17 05:44 Dose: 50 mg Ceftriaxone Sodium 1 gm/ (Syringe 0.4 ml/ Sterile Water) 10 mls @ 120 mls/hr SLOW IVP 0500 [facility] Last Admin: 08/10/17 05:39 Dose: 10 mls Potassium Chloride/Dextrose/Sod Cl (D5 1/2 Ns W/20 Meq Kcl) 1,000 mls @ 40 mls/ hr IV .Q24H [facility] Last Admin: 04/11/18 16:43 Dose: 1,000 mls Dobutamine HCl/Dextrose (Dobutamine 500 Mg/250 Ml) 250 mls @ 6.379 mls/hr IVPB INF ERNESTO; 2.5 MCG/KG/MIN PRN Reason: Protocol Hetastarch/Sodium Chloride (Hespan) 500 mls @ 0 mls/hr IVPB PRN PRN; As Directed PRN Reason: To Maintain SBP > 90mmHg Stop: 08/10/17 15:38 Norepinephrine Bitartrate (Levophed) 250 mls @ 0 mls/hr IVPB PRN PRN; Protocol ; Titrate PRN Reason: To maintain SBP > 90 mmHG Last Admin: 08/09/17 21:16 Dose: 250 mls Magnesium Sulfate 2 gm/ Device 100 mls @ 100 mls/hr IVPB QAM ERNESTO Stop: 08/11/17 09:59 Last Admin: 08/10/17 09:40 Dose: 100 mls Nitroglycerin/Dextrose (Nitroglycerin 50 Mg/250 Ml Bot) 250 mls @ 0 mls/hr IVPB PRN PRN; Protocol; Titrate PRN Reason: To Maintain SBP< 140mmHG Insulin Human Regular 100 (units/ Sodium Chloride) 101 mls @ 0 mls/hr IVPB INF ERNESTO; As Directed PRN Reason: Protocol Dextrose/Water (D5w) 1,000 mls @ 0 mls/hr IV INF PRN; As Directed PRN Reason: PRN HYPOGLYCEMIC PROTOCOL Potassium Chloride 20 meq/ (Sodium Chloride) 110 mls @ 55 mls/hr IVPB PRN PRN PRN Reason: K level </= 4.0 Fentanyl Citrate 2,000 mcg/ (Sodium Chloride) 100 mls @ 0 mls/hr IV INF ERNESTO; Per Protocol PRN Reason: Protocol Stop: 09/08/17 16:36 Last Admin: 08/09/17 17:43 Dose: 100 mls Fentanyl Citrate (Fentanyl Bolus) 250 mls @ 0 mls/hr IVPB PRN PRN; As Directed PRN Reason: Breakthrough pain/agitation Stop: 09/09/17 09:58 Insulin Detemir (Levemir) 0 units SC ONE PRN PRN Reason: POST-OP PROTOCOL Stop: 08/12/17 15:55 Insulin Human Regular (Humulin R) 0 units SC Q4H PRN; Protocol PRN Reason: POST OP SLIDING SCALE Ketorolac Tromethamine (Toradol) 30 mg IVP Q6HR [facility] Stop: 08/12/17 18:01 Last Admin: 08/10/17 05:42 Dose: 30 mg Morphine Sulfate (Morphine) 2 mg SLOW IVP Q2H PRN PRN Reason: Breakthrough pain Stop: 09/08/17 16:36 Last Admin: 08/09/17 17:31 Dose: 2 mg Discontinue Previous Narcotic Pain Medications And Benzodiazepines 1 each FS .ONE [facility] Stop: 09/08/17 16:36 Ondansetron HCl (Zofran) 4 mg IVP Q6H PRN PRN Reason: Nausea/Vomiting Pantoprazole Sodium (Protonix) 40 mg IVP DAILY [facility] Last Admin: 08/10/17 09:45 Dose: 40 mg Promethazine HCl (Phenergan) 6.25 mg IM Q4H PRN PRN Reason: Nausea/Vomiting Propofol (Diprivan) 1,000 mg IV INF PRN; Protocol PRN Reason: TO ACHIEVE MARTEL SCORE 2-3 Stop: 09/08/17 16:36 Propofol (Diprivan) 1,000 mg IV INF PRN; Protocol PRN Reason: TO ACHIEVE GOAL RASS Stop: 09/09/17 09:58 Propofol (Diprivan Bolus) 20 mg IV Q5MIN PRN PRN Reason: BREAKTHROUGH AGITATION Stop: 09/09/17 09:58 Sodium Chloride (Flush - Normal Saline) 10 ml IV DAILY [facility] Last Admin: 08/10/17 09:46 Dose: 10 ml
[2017-08-10] MEDS: Morphine 4 MG/ML VIAL SLOW IVP PRN ×2 (12:25→15:13)
[2017-08-10] MEDS ORDERED: Insulin Detemir 100 UNITS/ML 7 UNITS in Pre-Filled Syringe 1 EACH SC SCH (13:30)
[2017-08-10] MEDS: D5 1/2 NS w/20 mEq KCL 1,000 ML IV SCH ×2 (16:10→21:56)
[2017-08-10] MEDS: Insulin Regular 300 UNITS/3 ML VIAL SC PRN ×2 (16:15→20:35)
--- NOTE | 2017-08-10 17:31 | PRG ---
DATE OF SERVICE: 08/10/2017 SERVICE: Pulmonary Medicine. INTERVAL HISTORY: The patient is doing fantastic from a respiratory standpoint. Oxygen requirements have actually improved a little bit. He is having less ventricular ectopy. His blood pressures are improving and we have been able to wean off of many of his pressors. That being said, he has got significant oozing from the chest tube. He also has significant blood coming from his endotracheal tube, starting to thin up and turn into old stuff. I am not quite certain whether or not he is going to be able to handle this amount of secretions in his current state however. It will be much more challenging with all the chest tubes in place, otherwise. As such, I do think it would be in his best interest to continue to leave him intubated for 1 additional day. PHYSICAL EXAMINATION: VITAL SIGNS: Afebrile, pulse 69, blood pressure 89/47, respirations 11, saturation 95% on 31% FIO2 and a PEEP of 5. GENERAL: The patient is awake. He is a little somnolent, but he is following commands. He is moving all 4 extremities spontaneously. HEENT: Normocephalic, atraumatic. Sclerae are white, conjunctivae pink. Oral and nasal mucosa is moist without lesions. LUNGS: Decent air entry without prolonged expiratory phase, wheezing, rhonchi, or crackles present. HEART: Normal rate, regular. ABDOMEN: Soft, nontender, nondistended. Bowel sounds are positive. MUSCULOSKELETAL: No cyanosis or clubbing. There is trace pitting in the bilateral lower extremities. NEUROLOGIC: Grossly nonfocal. LABORATORY DATA: WBC 14.6, hemoglobin 11.8 and stable, platelets 134,000. INR 1.5. PH 7.35, pCO2 51, pO2 92. He is on 60% FiO2 at that time. His ionized calcium is 1.2, which falls within the lower limits of normal. Blood sugars remain within the acceptable range. Creatinine is up trending gently to 1.3. Basic metabolic profile is essentially unremarkable otherwise. Sodium is 144. IMAGING: Chest x-ray demonstrates right-sided thoracostomy drain is in good position. Left side pleural effusion is still present. Mediastinal drain is also present. There is three median sternotomy wires. Endotracheal tube remains in good position roughly 4 cm above juan manuel. ASSESSMENT: 1. Acute hypoxic respiratory failure, slowly improving. 2. Acute systolic heart failure. 3. Coronary artery disease, severe. 4. Chronic obstructive lung disease with acute exacerbation. 5. Coronary bypass graft, postoperative day #1, DISCUSSION AND PLAN: We will leave the patient intubated for an additional 24 hours. This is primarily because of his significant hemoptysis. I do not think that he would be able to handle his secretions given his multiple comorbidities and chest tubes that are present. As such, I will give him additional 24 hours. He is already starting to thin out a little bit and I think that one more night will do well. We will give him an early sedation holiday and try to get the tube out first thing in the morning. Pulmonary Critical Care will continue to follow. Critical care time: 30 minutes. LILIA
[2017-08-11] MEDS: Ketorolac Tromethamine 30 MG/ML VIAL IVP SCH ×5 (00:28→23:26)
[2017-08-11] MEDS: Hydrocortisone Sod Succ/PF 100 mg/2 ml Vial IVP SCH ×5 (00:29→23:26)
[2017-08-11] MEDS: Insulin Regular 300 UNITS/3 ML VIAL SC PRN ×4 (04:39→20:46)
[2017-08-11 04:53] LABS: #Lymphocytes 0.8 thou/uL (1.20-3.40); #Monocytes 0.7 thou/uL (0.11-0.59); #Neutrophils 7.9 thou/uL (1.40-6.50); %Basophils 0.2 % (0.0-1.0); %Eosinophils 0.1 % (0.0-10.0); %Lymphocytes 7.9 % (21.0-51.0); %Monocytes 7.6 % (0.0-10.0); %Neutrophils 84.1 % (42.0-75.0); Hemoglobin 10.9 g/dL (14.0-18.0); Mean Corpuscular Hemoglobin 31.6 pg (27.0-31.0); Mean Corpuscular Volume 95.9 fl (80.0-94.0); Mean Platelet Volume 7.7 fL (7.4-10.4); PLT Morphology Comment Appears Decreased; Platelet Count 75 thou/uL (130-400); RBC Distribution Width 12.2 % (11.5-14.5); Red Blood Cell (RBC) Count 3.46 mill/uL (4.70-6.10); White Blood Cell (WBC) Count 9.4 thou/uL (4.8-10.8)
[2017-08-11] MEDS: cefTRIAXone\\ROCEPHIN 1 GM, Syringe 0.4 ML in Sterile Water 9.6 ML SLOW IVP SCH (05:18)
[2017-08-11 05:34] LABS: Anion Gap 6 mmol/L (10-20); BUN (Urea Nitrogen) 32 mg/dL (8.4-25.7); Calc. Creatinine Clearance 84 mL/min (70-130); Calcium 8.5 mg/dL (7.8-10.44); Carbon Dioxide 30 mmol/L (23-31); Chloride 110 mmol/L (98-107); Estimated GFR-MDRD 77; Glucose 146 mg/dL (83-110); Potassium 4.4 mmol/L (3.5-5.1); Sodium 142 mmol/L (136-145)
--- NOTE | 2017-08-11 07:06 | EKG ---
Test Reason : STAT Blood Pressure : / mmHG Vent. Rate : 063 BPM Atrial Rate : 063 BPM P-R Int : 000 ms QRS Dur : 168 ms QT Int : 510 ms P-R-T Axes : 000 254 081 degrees QTc Int : 521 ms Sinus rhythm with short [place] Right bundle branch block Inferior infarct , age undetermined Abnormal ECG When compared with ECG of 09-AUG-2017 16:10, (Unconfirmed) Premature ventricular complexes are no longer Present Vent. rate has decreased BY 36 BPM Right bundle branch block has replaced Incomplete left bundle branch block Inferior infarct is now Present Confirmed by ASA NORWOOD ([id number]) on 08/11/2017 7:06:11 AM Referred By: Confirmed By:ASA NORWOOD
--- NOTE | 2017-08-11 07:13 | EKG ---
Test Reason : Blood Pressure : / mmHG Vent. Rate : 099 BPM Atrial Rate : 099 BPM P-R Int : 162 ms QRS Dur : 114 ms QT Int : 364 ms P-R-T Axes : 067 048 214 degrees QTc Int : 467 ms Sinus rhythm with frequent , and consecutive Premature ventricular complexes (Couplets) Incomplete left bundle branch block Left ventricular hypertrophy with repolarization abnormality Abnormal ECG When compared with ECG of 07-AUG-2017 02:02, (Unconfirmed) Premature ventricular complexes are now Present Criteria for Inferior infarct are no longer Present ST now depressed in Anterior leads Confirmed by ASA NORWOOD ([id number]) on 08/11/2017 7:13:38 AM Referred By: OMAR Confirmed By:ASA NORWOOD
[2017-08-11] MEDS: Magnesium 2 GM/NS 0.9% 100 ML 2 GM in Premix Bag 1 BAG IVPB SCH (08:32)
[2017-08-11] MEDS: Pantoprazole 40 MG VIAL IVP SCH ×2 (08:33)
--- NOTE | 2017-08-11 08:36 | RAD ---
CHEST 1 VIEW: HISTORY: Open heart surgery. COMPARISON: Chest radiograph prior day. FINDINGS: The patient is intubated with enteric tube tip above the clavicles. Central venous catheter is place d to the inferior SVC. The heart size is enlarged. Infiltrates are similar. Drainage tube projects over the chest. IMPRESSION: Similar appearance to the chest. No significant change. POS: [facility]
[2017-08-11] MEDS ORDERED: Furosemide 100 MG/10 ML VIAL SLOW IVP SCH (08:45)
[2017-08-11] MEDS ORDERED: Potassium Chloride 20 MEQ TAB PO SCH ×2 (08:45)
--- NOTE | 2017-08-11 08:55 | PRG ---
DATE OF SERVICE: 08/11/2017 Mr. Fernandez is on the ventilator, looks comfortable. Unable to answer questions on the ventilator. REVIEW OF SYSTEMS: Of course not available. PHYSICAL EXAMINATION: VITAL SIGNS: Blood pressure 117/50, pulse is in the 70s, it is sinus. LUNGS: Clear. CARDIAC: Normal S1 and S2. ABDOMEN: Soft, nontender. EXTREMITIES: No edema. Chest x-ray looks like there is some pulmonary vascular congestion. ASSESSMENT: 1. Severely depressed ejection fraction 15-20%. 2. Postoperative status. 3. Some element of pulmonary congestion on x-ray. PLAN: 1. Give intravenous furosemide. 2. Give intravenous potassium. 3. Hopefully extubate later today.
[2017-08-11 10:54] LABS: Actual Bicarbonate (HCO3a) 29.9 mEq/L (22-26); Analyzer IN Cardio OR; Base Excess (BEa) 2.5 mEq/L (0 (+/-) 2.5); CO2 Tension 57.3 mmHg (35.0-45.0); Calcium, Ionized 1.2 mmol/L (1.12-1.30); Hematocrit-ABG 46.4 % (42.0-52.0); Hemoglobin (Hb) 15.1 g/dL (14.0-18.0); O2 Tension (PaO2) 87.6 mmHg (80.0-100.0); Puncture Site ALINE; pH, Arterial 7.34 (7.35-7.45)
[2017-08-11 11:23] LABS: Actual Bicarbonate (HCO3a) 30.5 mEq/L (22-26); Base Excess (BEa) 2.3 mEq/L (0 (+/-) 2.5); Hemoglobin (Hb) 15.1 g/dL (14.0-18.0); O2 Tension (PaO2) 341.4 mmHg (80.0-100.0)
[2017-08-11 11:24] LABS: Analyzer IN Cardio OR; Calcium, Ionized 1.2 mmol/L (1.12-1.30); Puncture Site ALINE
[2017-08-11 11:47] LABS: Actual Bicarbonate (HCO3v) 30 mEq/L (22-26); Analyzer IN Cardio OR; Base Excess 2.7 mEq/L (0 (+/- 2.5)); Calcium, Ionized 1.12 mmol/L (1.16-1.32); Chloride (ABG LAB) 100 mmol/L (98-106); Hematocrit-VBG 35.1 % (37-51); Hemoglobin (Hb) 11.9 g/dL (12.6-17.4); Potassium - ABG Lab 5.4 mmol/L (3.70-5.30); Sodium 139.2 mmol/L (133-146); pH (venous) 7.34 (7.35-7.45)
[2017-08-11 11:48] LABS: Actual Bicarbonate (HCO3a) 26.5 mEq/L (22-26); Analyzer IN Cardio OR; Base Excess (BEa) 0.8 mEq/L (0 (+/-) 2.5); CO2 Tension 47.1 mmHg (35.0-45.0); Calcium, Ionized 1.1 mmol/L (1.12-1.30); Hematocrit-ABG 33.8 % (42.0-52.0); Hemoglobin (Hb) 11.4 g/dL (14.0-18.0); O2 Tension (PaO2) 404.7 mmHg (80.0-100.0); pH, Arterial 7.37 (7.35-7.45)
[2017-08-11 11:49] LABS: Puncture Site ALINE
[2017-08-11 11:49] LABS: Actual Bicarbonate (HCO3a) 27.5 mEq/L (22-26); Base Excess (BEa) 1.9 mEq/L (0 (+/-) 2.5); CO2 Tension 47.1 mmHg (35.0-45.0); Hematocrit-ABG 31.9 % (42.0-52.0); Hemoglobin (Hb) 11.4 g/dL (14.0-18.0); O2 Tension (PaO2) 345.3 mmHg (80.0-100.0); pH, Arterial 7.38 (7.35-7.45)
[2017-08-11 11:50] LABS: Analyzer IN Cardio OR; Calcium, Ionized 1.1 mmol/L (1.12-1.30); Puncture Site ALINE
[2017-08-11 11:51] LABS: CO2 Tension 47.8 mmHg (35.0-45.0); pH, Arterial 7.34 (7.35-7.45)
[2017-08-11 11:52] LABS: Actual Bicarbonate (HCO3a) 25.5 mEq/L (22-26); Analyzer IN Cardio OR; Base Excess (BEa) -0.6 mEq/L (0 (+/-) 2.5); Calcium, Ionized 1.2 mmol/L (1.12-1.30); Hematocrit-ABG 34.5 % (42.0-52.0); Hemoglobin (Hb) 11.5 g/dL (14.0-18.0); O2 Tension (PaO2) 364.6 mmHg (80.0-100.0); Puncture Site ALINE
[2017-08-11 11:53] LABS: Actual Bicarbonate (HCO3a) 25.6 mEq/L (22-26); Analyzer IN Cardio OR; Base Excess (BEa) -1.2 mEq/L (0 (+/-) 2.5); CO2 Tension 51.5 mmHg (35.0-45.0); Calcium, Ionized 1.2 mmol/L (1.12-1.30); Hemoglobin (Hb) 13.3 g/dL (14.0-18.0); O2 Tension (PaO2) 368.1 mmHg (80.0-100.0); Puncture Site ALINE; pH, Arterial 7.32 (7.35-7.45)
--- NOTE | 2017-08-11 13:52 | PDOC.PN ---
- Subjective Encounter Start Date: 08/11/17 Encounter Start Time: 12:00 Subjective: pt intubated - Objective Vital Signs & Weight: Vital Signs (12 hours) Temp Pulse Resp BP Pulse Ox 08/11/17 12:00 95 08/11/17 10:55 79 26 H 93 L 08/11/17 10:00 18 08/11/17 08:41 69 117/58 L 08/11/17 08:40 69 18 95 08/11/17 08:00 99.0 F 79 26 H 08/11/17 06:00 20 08/11/17 04:00 19 08/11/17 02:46 73 08/11/17 02:00 14 Weight Weight 186 lb 1.122 oz Most Recent Monitor Data Heart Rate from ECG 71 NIBP 109/57 NIBP BP-Mean 82 Respiration from ECG 20 SpO2 96 I&O: 08/10/17 08/11/17 08/12/17 06:59 06:59 06:59 Intake Total 1987.1 1227.8 100 Output Total 2835 1495 2420 Balance -847.9 -267.2 -2320 Result Diagrams: 08/11/17 04:00 08/11/17 04:00 Additional Labs: Accuchecks 08/11/17 08/11/17 08/11/17 08:59 04:18 00:26 POC Glucose 133 H 131 H 117 H 08/10/17 08/10/17 08/10/17 20:34 16:10 15:09 POC Glucose 136 H 150 H 135 H 08/10/17 14:20 POC Glucose 135 H Phys Exam - Physical Examination Neck: no nodes, no JVD, supple, full ROM Respiratory: no wheezing, no rales, no rhonchi, wheezing present, clear to auscultation bilateral Cardiovascular: RRR, no significant murmur, no rub, gallop, irregular sternum dressing Gastrointestinal: soft, non-tender, no distention, positive bowel sounds Musculoskeletal: no edema, pulses present, edema present Dx/Plan - Plan 1) Nstemi 2) cad s/p CABG 3) chf systolic new 4) tobacco use plan: pt underwent CABG. Pt to be extubated today per nurse. Pt on asa. blood pressure low to be started on any cardiac meds. ( * . Review of Systems - Review of Systems Other: pt intubated - Medications/Allergies Allergies/Adverse Reactions: Allergies Allergy/AdvReac Type Severity Reaction Status Date / Time No Known Allergies Allergy Verified 08/07/17 04:49 Medications: Current Medications Acetaminophen (Tylenol) 650 mg PO Q6H PRN PRN Reason: Headache/Fever Or Mild Pain Al Hydroxide/Mg Hydroxide (Maalox) 30 ml PO Q4H PRN PRN Reason: Indigestion Albuterol/Ipratropium (Duoneb) 3 ml NEB [id number] PRN PRN Reason: SHORTNESS OF BREATH Albuterol/Ipratropium (Duoneb) 3 ml NEB [id number] [facility] Last Admin: 08/11/17 08:40 Dose: 3 ml Aspirin (Aspirin) 325 mg PO DAILY [facility] Last Admin: 08/10/17 09:45 Dose: Not Given Bisacodyl (Dulcolax) 10 mg PO Q12H PRN PRN Reason: Constipation Bisacodyl (Dulcolax) 10 mg MN Q12H PRN PRN Reason: Constipation Dextrose/Water (Dextrose 50%) 25 gm SLOW IVP PRN PRN PRN Reason: PER HYPOGLYCEMIC PROTOCOL Glucagon (Glucagon) 1 mg SC PRN PRN PRN Reason: PER HYPOGLYCEMIC PROTOCOL Hydralazine HCl (Apresoline) 10 mg SLOW IVP Q6H PRN PRN Reason: To Maintain SBP< 140mmHG Hydrocortisone Sodium Succinate (Solu-Cortef) 50 mg IVP Q6HR [facility] Last Admin: 08/11/17 11:59 Dose: 50 mg Ceftriaxone Sodium 1 gm/ (Syringe 0.4 ml/ Sterile Water) 10 mls @ 120 mls/hr SLOW IVP 0500 [facility] Last Admin: 08/11/17 05:18 Dose: 10 mls Potassium Chloride/Dextrose/Sod Cl (D5 1/2 Ns W/20 Meq Kcl) 1,000 mls @ 40 mls/ hr IV .Q24H [facility] Last Admin: 08/10/17 21:56 Dose: 1,000 mls Norepinephrine Bitartrate (Levophed) 250 mls @ 0 mls/hr IVPB PRN PRN; Protocol ; Titrate PRN Reason: To maintain SBP > 90 mmHG Last Admin: 08/09/17 21:16 Dose: 250 mls Dextrose/Water (D5w) 1,000 mls @ 0 mls/hr IV INF PRN; As Directed PRN Reason: PRN HYPOGLYCEMIC PROTOCOL Potassium Chloride 20 meq/ (Sodium Chloride) 110 mls @ 55 mls/hr IVPB PRN PRN PRN Reason: K level </= 4.0 Fentanyl Citrate 2,000 mcg/ (Sodium Chloride) 100 mls @ 0 mls/hr IV INF ERNESTO; Per Protocol PRN Reason: Protocol Stop: 09/08/17 16:36 Last Admin: 08/09/17 17:43 Dose: 100 mls Fentanyl Citrate (Fentanyl Bolus) 250 mls @ 0 mls/hr IVPB PRN PRN; As Directed PRN Reason: Breakthrough pain/agitation Stop: 09/09/17 09:58 Insulin Human Regular (Humulin R) 0 units SC Q4H PRN; Protocol PRN Reason: POST OP SLIDING SCALE Last Admin: 08/11/17 13:42 Dose: 2 unit Ketorolac Tromethamine (Toradol) 30 mg IVP Q6HR ERNESTO Stop: 08/12/17 18:01 Last Admin: 08/11/17 11:59 Dose: 30 mg Morphine Sulfate (Morphine) 2 mg SLOW IVP Q2H PRN PRN Reason: Breakthrough pain Stop: 09/08/17 16:36 Last Admin: 08/10/17 15:13 Dose: 2 mg Discontinue Previous Narcotic Pain Medications And Benzodiazepines 1 each FS .ONE [facility] Stop: 09/08/17 16:36 Ondansetron HCl (Zofran) 4 mg IVP Q6H PRN PRN Reason: Nausea/Vomiting Pantoprazole Sodium (Protonix) 40 mg IVP DAILY [facility] Last Admin: 08/11/17 08:33 Dose: 40 mg Promethazine HCl (Phenergan) 6.25 mg IM Q4H PRN PRN Reason: Nausea/Vomiting Propofol (Diprivan) 1,000 mg IV INF PRN; Protocol PRN Reason: TO ACHIEVE MARTEL SCORE 2-3 Stop: 09/08/17 16:36 Propofol (Diprivan) 1,000 mg IV INF PRN; Protocol PRN Reason: TO ACHIEVE GOAL RASS Stop: 09/09/17 09:58 Propofol (Diprivan Bolus) 20 mg IV Q5MIN PRN PRN Reason: BREAKTHROUGH AGITATION Stop: 09/09/17 09:58 Sodium Chloride (Flush - Normal Saline) 10 ml IV DAILY [facility]O Last Admin: 08/11/17 08:36 Dose: 10 ml
[2017-08-11] MEDS: Aspirin 325 MG TAB PO SCH (16:27)
--- NOTE | 2017-08-11 19:18 | PRG ---
DATE OF SERVICE: 08/11/2017 SERVICE: Pulmonary Medicine. INTERVAL HISTORY: The patient is doing really quite well from a respiratory standpoint. He continue s to have episodes of apnea interposed with tachypnea. He never has any desaturation associated with these events. He passed a spontaneous breathing trial. He cannot provide any additional elements o f the history at this time. PHYSICAL EXAMINATION: VITAL SIGNS: Afebrile, pulse 76, blood pressure 126/56, respirations 22, saturation 97% on room air. GENERAL: The patient is awake and alert, in no apparent distress. LUNGS: Excellent air entry with no prolonged expiratory phase. HEART: Normal rate, regular. ABDOMEN: Soft, nontender, nondistended. Bowel sounds are positive. MUSCULOSKELETAL: No cyanosis or clubbing. There is no pitting in the bilateral lower extremities. NEUROLOGIC: Grossly nonfocal. IMAGING: Chest x-ray demonstrates endotracheal tube remains in good position. There is a right-side d thoracostomy drain. Left-sided pleural effusion is stable. Otherwise, there is no significant int erval change that I can identify here. ASSESSMENT: 1. Acute hypoxic respiratory failure, slowly improving. 2. Acute systolic heart failure. 3. Coronary artery disease, severe. 4. Coronary artery bypass graft, postoperative day #2. 5. Left-sided pleural effusion. DISCUSSION AND PLAN: The patient is doing fairly well from a respiratory standpoint. Oxygen require ments have reduced. He is no longer having hemoptysis. He looks much more comfortable today. We wi ll make an attempt at extubating if he passes spontaneous breathing trial. We will work on mobilizat ion after this can be done. CRITICAL CARE TIME: 30 minutes.
[2017-08-11] MEDS: Amiodarone HCl 450 MG, Admixture Fee 1 EACH in Dextrose 5% in Water 250 ML IVPB SCH ×3 (23:25)
[2017-08-12 04:25] LABS: #Eosinphils 0.1 thou/uL (0.0-0.7); #Lymphocytes 0.9 thou/uL (1.20-3.40); #Monocytes 0.6 thou/uL (0.11-0.59); #Neutrophils 12.2 thou/uL (1.40-6.50); %Eosinophils 0.5 % (0.0-10.0); %Lymphocytes 6.7 % (21.0-51.0); %Monocytes 4.5 % (0.0-10.0); %Neutrophils 88.3 % (42.0-75.0); Hemoglobin 10.8 g/dL (14.0-18.0); Mean Corpuscular HGB CONC 34.1 g/dL (32.0-36.0); Mean Corpuscular Hemoglobin 32.5 pg (27.0-31.0); Mean Corpuscular Volume 95.3 fl (80.0-94.0); Mean Platelet Volume 7.5 fL (7.4-10.4); Platelet Count 89 thou/uL (130-400); RBC Distribution Width 12.1 % (11.5-14.5); Red Blood Cell (RBC) Count 3.32 mill/uL (4.70-6.10); White Blood Cell (WBC) Count 13.9 thou/uL (4.8-10.8)
[2017-08-12 04:52] LABS: Anion Gap 7 mmol/L (10-20); BUN (Urea Nitrogen) 33 mg/dL (8.4-25.7); Calc. Creatinine Clearance 95 mL/min (70-130); Calcium 8.4 mg/dL (7.8-10.44); Carbon Dioxide 33 mmol/L (23-31); Chloride 106 mmol/L (98-107); Estimated GFR-MDRD 89; Glucose 130 mg/dL (83-110); Sodium 142 mmol/L (136-145)
[2017-08-12] MEDS: cefTRIAXone\\ROCEPHIN 1 GM, Syringe 0.4 ML in Sterile Water 9.6 ML SLOW IVP SCH (04:59)
[2017-08-12] MEDS: Ketorolac Tromethamine 30 MG/ML VIAL IVP SCH (06:03)
[2017-08-12] MEDS: Hydrocortisone Sod Succ/PF 100 mg/2 ml Vial IVP SCH ×4 (06:04→23:51)
[2017-08-12] MEDS: Amiodarone HCl 450 MG, Admixture Fee 1 EACH in Dextrose 5% in Water 250 ML IVPB SCH ×6 (06:29→22:13)
[2017-08-12] MEDS: Insulin Regular 300 UNITS/3 ML VIAL SC PRN ×4 (08:18→21:10)
[2017-08-12] MEDS: Aspirin 325 MG TAB PO SCH (08:24)
--- NOTE | 2017-08-12 10:07 | RAD ---
AP VIEW OF THE CHEST: INDICATION: History of open heart surgery. FINDINGS: Sternotomy changes are similar. The patient has been extubated. Right subclavian central venous cat heter is stable. Cardiomegaly with pulmonary vascular congestion persists. Small bilateral pleural effusions are slightly increased in size from the prior exam. No pneumothorax is evident. IMPRESSION: 1. Increased bilateral pleural effusion. Persistent cardiomegaly with pulmonary vascular congestion . 2. Interval extubation. 3. Stable right subclavian central venous catheter. POS: CET
[2017-08-12] MEDS ORDERED: Tamsulosin HCl 0.4 MG CAP PO SCH (10:15)
[2017-08-12] MEDS ORDERED: Furosemide 40 MG/4 ML VIAL SLOW IVP SCH (10:15)
[2017-08-12] MEDS: guaiFENesin ER 600 MG TAB PO SCH ×2 (10:29→21:05)
[2017-08-12] MEDS ORDERED: guaiFENesin ER 600 MG TAB PO SCH (10:30)
[2017-08-12] MEDS: D5 1/2 NS w/20 mEq KCL 1,000 ML IV SCH (11:29)
--- NOTE | 2017-08-12 11:57 | PDOC.CTH ---
Cardiology Progress Note - Subjective He is doing well. He had a run of non sustained VT last night and was started on amiodarone. - Objective Vital Signs Temp Pulse Resp Pulse Ox 08/12/17 09:00 98.8 F 72 20 95 08/12/17 07:17 99 08/12/17 07:15 72 20 99 08/12/17 01:27 95 08/12/17 01:26 97 Weight 185 lb 6.54 oz 08/11/17 08/12/17 08/13/17 06:59 06:59 06:59 Intake Total 1227.8 1729 500 Output Total 1495 3410 395 Balance -267.2 -1681 105 - Physical Examination General/Neuro: alert & oriented x3, NAD Neck: no JVD present Lungs: unlabored respirations Heart: RRR Abdomen: NT/ND Extremities: + edema B (1+) - Telemetry Telemetry Rhythm: NSR - Labs Result Diagrams: 08/12/17 04:05 08/12/17 04:05 Troponin/CKMB CK-MB (CK-2) 1.4 ng/mL (0-6.6) 08/07/17 01:57 Troponin I 0.017 ng/mL (< 0.028) 08/07/17 18:41 - Assessment/Plan 1. Multivessel CAD. 2. S/P CABG 3. Severe ischemic CM EF at 15-20% 4. Non sustained VT PLAN: - Continue post op care - Aspirin and statin for life - BB and ACEI in the next 24hrs. - Continue amiodarone drip for now. - Will need a lifevest on discharge.
--- NOTE | 2017-08-12 20:39 | PRG ---
DATE OF SERVICE: 08/12/2017 SUBJECTIVE: Mr. Fernandez is in no distress. He had nonsustained V-tach. He is on amiodarone. He is having some thick secretions, but he is clearing them adequately. OBJECTIVE: VITAL SIGNS: Heart rate 77, respiratory rate is 20, oximetry is 94 on 3 liters, blood pressure 131/6 7. LUNGS: Clear. CARDIOVASCULAR: Regular rhythm. ABDOMEN: Soft. EXTREMITIES: Without asymmetry. LABORATORY DATA: White count 13.9, hemoglobin 10.8, platelets 89,000. Sodium 142, potassium 4, chloride 106, bicarbonate 33, BUN 33, creatinine 0.85. IMAGING: Chest radiograph today is reviewed. There are effusions bilaterally and mild increased int erstitial markings. Dr. Hogan ordered Lasix this morning. Intake and output was negative 168. IMPRESSION: 1. Mild pulmonary edema. 2. Status post coronary artery bypass grafting. 3. Coronary artery disease. 4. Bilateral effusions. PLAN: 1. Mucinex. 2. Lasix. 3. Continued observation in the Critical Care Unit.
--- NOTE | 2017-08-12 22:40 | PDOC.PN ---
- Subjective Encounter Start Date: 08/12/17 Encounter Start Time: 12:30 Subjective: pt up in bed no complains - Objective Vital Signs & Weight: Vital Signs (12 hours) Temp Pulse Resp Pulse Ox 08/12/17 20:00 98.6 F 08/12/17 19:48 98.6 F 79 24 H 94 L 08/12/17 18:58 94 L 08/12/17 18:57 77 21 H 94 L 08/12/17 13:30 75 14 94 L Weight Weight 185 lb 6.54 oz Most Recent Monitor Data Heart Rate from ECG 83 NIBP 121/55 NIBP BP-Mean 83 Respiration from ECG 27 SpO2 94 I&O: 08/11/17 08/12/17 08/13/17 06:59 06:59 06:59 Intake Total 1227.8 1729 1342 Output Total 1495 3410 2014 Balance -267.2 -1681 -673 Result Diagrams: 08/13/17 03:23 08/13/17 03:23 Additional Labs: Accuchecks 08/12/17 08/12/17 08/12/17 21:10 17:22 11:18 POC Glucose 209 H 148 H 173 H 08/12/17 08/12/17 08/11/17 08:19 04:06 23:42 POC Glucose 176 H 129 H 130 H Phys Exam - Physical Examination HEENT: PERRLA, moist MMs, sclera anicteric, TM's clear, oral pharynx no lesions , 2+ tonsils Neck: no nodes, no JVD, supple, full ROM Respiratory: no wheezing, no rales, no rhonchi, wheezing present, clear to auscultation bilateral Cardiovascular: RRR, no significant murmur, no rub, gallop, irregular Gastrointestinal: soft, non-tender, no distention, positive bowel sounds Musculoskeletal: no edema, pulses present, edema present Neurological: non-focal, normal sensation, moves all 4 limbs Dx/Plan - Plan 1) Nstemi 2) cad s/p CABG 3) chf systolic new 4) tobacco use plan: pt underwent CABG. Pt to be extubated today per nurse. Pt on asa. blood pressure low to be started on any cardiac meds. * . Review of Systems - Review of Systems Eyes: negative: Pain, Vision Change, Conjunctivae Inflammation, Eyelid Inflammation, Redness, Other ENT: negative: Ear Pain, Ear Discharge, Nose Pain, Nose Discharge, Nose Congestion, Mouth Pain, Mouth Swelling, Throat Pain, Throat Swelling, Other Respiratory: negative: Cough, Dry, Shortness of Breath, Hemoptysis, SOB with Excertion, Pleuritic Pain, Sputum, Wheezing Cardiovascular: negative: chest pain, palpitations, orthopnea, paroxysmal nocturnal dyspnea, edema, light headedness, other Gastrointestinal: negative: Nausea, Vomiting, Abdominal Pain, Diarrhea, Constipation, Melena, Hematochezia, Other Genitourinary: negative: Dysuria, Frequency, Incontinence, Hematuria, Retention , Other - Medications/Allergies Allergies/Adverse Reactions: Allergies Allergy/AdvReac Type Severity Reaction Status Date / Time No Known Allergies Allergy Verified 08/07/17 04:49 Medications: Current Medications Acetaminophen (Tylenol) 650 mg PO Q6H PRN PRN Reason: Headache/Fever or Pain Hydrocodone Bitart/Acetaminophen ([place] 5/325) 1 tab PO Q4H PRN PRN Reason: Moderate Pain (4-6) Al Hydroxide/Mg Hydroxide (Maalox) 30 ml PO Q4H PRN PRN Reason: Indigestion Aspirin (Ecotrin) 325 mg PO DAILY ER[facility]ST[facility] Atorvastatin Calcium (Lipitor) 20 mg PO HS ERNESTO Bisacodyl (Dulcolax) 10 mg PO Q12H PRN PRN Reason: Constipation Bisacodyl (Dulcolax) 10 mg RI Q12H PRN PRN Reason: Constipation Dextrose/Water (Dextrose 50%) 25 gm SLOW IVP PRN PRN PRN Reason: PER HYPOGLYCEMIC PROTOCOL Furosemide (Lasix) 40 mg PO DAILY-AC [facility] Glucagon (Glucagon) 1 mg SC PRN PRN PRN Reason: PER HYPOGLYCEMIC PROTOCOL Guaifenesin/Dextromethorphan (Robitussin Dm) 15 ml PO Q4H PRN PRN Reason: Cough Amiodarone HCl 450 mg/Miscellaneous Medication 1 each/ Dextrose/Water 259 mls @ 0 mls/hr IVPB INF ERNESTO; As Directed PRN Reason: Protocol Last Admin: 08/12/17 22:13 Dose: 259 mls Dextrose/Water (D5w) 1,000 mls @ 0 mls/hr IV INF PRN; As Directed PRN Reason: PRN HYPOGLYCEMIC PROTOCOL Insulin Human Regular (Humulin R) 0 units SC Q4H PRN; Protocol PRN Reason: POST OP SLIDING SCALE Last Admin: 08/13/17 11:15 Dose: 3 unit Mineral Oil (Fleet Mineral Oil) 133 ml RI DAILYPRN PRN PRN Reason: Constipation Nitroglycerin (Nitrostat) 0.4 mg SL Q5MIN PRN PRN Reason: Chest Pain Pantoprazole Sodium (Protonix) 40 mg PO DAILY [facility] Last Admin: 08/13/17 07:50 Dose: 40 mg Spironolactone (Aldactone) 12.5 mg PO QA-[facility] Tamsulosin HCl (Flomax) 0.4 mg PO DAILY [facility] Last Admin: 08/13/17 10:11 Dose: Not Given
[2017-08-13 05:09] LABS: Anion Gap 6 mmol/L (10-20); BUN (Urea Nitrogen) 30 mg/dL (8.4-25.7); Calc. Creatinine Clearance 96 mL/min (70-130); Calcium 8.6 mg/dL (7.8-10.44); Carbon Dioxide 36 mmol/L (23-31); Chloride 102 mmol/L (98-107); Estimated GFR-MDRD 90; Glucose 149 mg/dL (83-110); Potassium 3.5 mmol/L (3.5-5.1); Sodium 140 mmol/L (136-145)
[2017-08-13] MEDS: cefTRIAXone\\ROCEPHIN 1 GM, Syringe 0.4 ML in Sterile Water 9.6 ML SLOW IVP SCH (05:34)
[2017-08-13] MEDS: Hydrocortisone Sod Succ/PF 100 mg/2 ml Vial IVP SCH (05:34)
[2017-08-13 06:03] LABS: Hemoglobin 10.8 g/dL (14.0-18.0); Mean Corpuscular HGB CONC 33.1 g/dL (32.0-36.0); Mean Corpuscular Hemoglobin 32.1 pg (27.0-31.0); Mean Corpuscular Volume 96.9 fl (80.0-94.0); Mean Platelet Volume 8.2 fL (7.4-10.4); Platelet Count 113 thou/uL (130-400); Red Blood Cell (RBC) Count 3.38 mill/uL (4.70-6.10); White Blood Cell (WBC) Count 16.6 thou/uL (4.8-10.8)
[2017-08-13 06:10] LABS: Band 5 % (5-11); MDiff Complete? YES; Myelocyte 2 % (0-0); Neutrophil 93 % (42-75)
[2017-08-13 06:39] VITALS: BMI 30.8
[2017-08-13] MEDS: Aspirin 325 MG TAB PO SCH (07:50)
[2017-08-13] MEDS: guaiFENesin ER 600 MG TAB PO SCH (07:50)
[2017-08-13] MEDS ORDERED: Tamsulosin HCl 0.4 MG CAP PO SCH (09:00)
[2017-08-13] MEDS ORDERED: Bisacodyl 5 MG TAB PO PRN (09:30)
[2017-08-13] MEDS ORDERED: Mag-Al 1200 mg/1200 mg/30 ML UDCUP PO PRN (09:30)
[2017-08-13] MEDS ORDERED: Furosemide 40 MG TAB PO SCH ×2 (09:30→10:15)
[2017-08-13] MEDS ORDERED: Spironolactone 25 MG TAB PO SCH ×2 (09:30→10:15)
[2017-08-13] MEDS ORDERED: Nitroglycerin 0.4 MG TAB (25 Tab Bottle) SL PRN (09:30)
[2017-08-13] MEDS ORDERED: Mineral Oil ENEMA PR PRN (09:30)
[2017-08-13] MEDS ORDERED: Acetaminophen 325 MG TAB PO PRN (09:30)
[2017-08-13] MEDS ORDERED: Guaifenesin DM 100-10/5 ML UDCUP PO PRN (09:30)
[2017-08-13] MEDS ORDERED: Bisacodyl 10 MG SUPP PR PRN (09:30)
[2017-08-13] MEDS ORDERED: HYDROcodone/Acetaminophen 5/325 mg Tablet PO PRN (09:30)
[2017-08-13] MEDS ORDERED: Dextrose 50% Abboject 50 ML SYRINGE SLOW IVP PRN (09:35)
[2017-08-13] MEDS ORDERED: Dextrose 5% in Water 1,000 ML IV PRN (09:35)
[2017-08-13] MEDS: Tamsulosin HCl 0.4 MG CAP PO SCH (10:11)
[2017-08-13] MEDS: Insulin Regular 300 UNITS/3 ML VIAL SC PRN (11:15)
--- NOTE | 2017-08-13 14:02 | PDOC.PN ---
- Subjective Encounter Start Date: 08/13/17 Encounter Start Time: 11:15 Subjective: pt up in bed no complains - Objective Vital Signs & Weight: Vital Signs (12 hours) Temp Pulse Pulse Pulse Resp BP BP 08/13/17 13:41 83 77 150/75 H 146/70 H 08/13/17 13:04 98.2 F 86 16 08/13/17 08:00 98.9 F 68 23 H 08/13/17 06:53 08/13/17 06:51 76 16 08/13/17 04:00 98.4 F BP Pulse Ox Pulse Ox Pulse Ox 08/13/17 13:41 95 93 L 08/13/17 13:04 139/69 93 L 08/13/17 08:00 92 L 08/13/17 06:53 95 08/13/17 06:51 95 08/13/17 04:00 Weight Weight 191 lb 2.252 oz Most Recent Monitor Data Heart Rate from ECG 77 NIBP 134/64 NIBP BP-Mean 99 Respiration from ECG 25 SpO2 94 I&O: 08/12/17 08/13/17 08/14/17 06:59 06:59 06:59 Intake Total 1729 1793 460 Output Total 3410 2680 410 Balance -5671 -717 50 Result Diagrams: 08/13/17 03:23 08/13/17 03:23 Additional Labs: Accuchecks 08/13/17 08/13/17 08/12/17 11:11 04:46 21:10 POC Glucose 163 H 118 H 209 H 08/12/17 17:22 POC Glucose 148 H Phys Exam - Physical Examination HEENT: PERRLA, moist MMs, sclera anicteric, TM's clear, oral pharynx no lesions , 2+ tonsils Neck: no nodes, no JVD, supple, full ROM Respiratory: no wheezing, no rales, no rhonchi, wheezing present, clear to auscultation bilateral Cardiovascular: RRR, no significant murmur, no rub, gallop, irregular Gastrointestinal: soft, non-tender, no distention, positive bowel sounds Musculoskeletal: no edema, pulses present, edema present Dx/Plan - Plan 1) Nstemi 2) cad s/p CABG 3) chf systolic new 4) tobacco use plan: pt underwent CABG. Pt to be extubated today per nurse. Pt on asa. blood pressure low to be started on any cardiac meds. pt to be transferred to floor today. Encouraged pt to use Incentive spirometry * . Review of Systems - Review of Systems Eyes: negative: Pain, Vision Change, Conjunctivae Inflammation, Eyelid Inflammation, Redness, Other ENT: negative: Ear Pain, Ear Discharge, Nose Pain, Nose Discharge, Nose Congestion, Mouth Pain, Mouth Swelling, Throat Pain, Throat Swelling, Other Respiratory: negative: Cough, Dry, Shortness of Breath, Hemoptysis, SOB with Excertion, Pleuritic Pain, Sputum, Wheezing Cardiovascular: negative: chest pain, palpitations, orthopnea, paroxysmal nocturnal dyspnea, edema, light headedness, other Gastrointestinal: negative: Nausea, Vomiting, Abdominal Pain, Diarrhea, Constipation, Melena, Hematochezia, Other Genitourinary: negative: Dysuria, Frequency, Incontinence, Hematuria, Retention , Other - Medications/Allergies Allergies/Adverse Reactions: Allergies Allergy/AdvReac Type Severity Reaction Status Date / Time No Known Allergies Allergy Verified 08/07/17 04:49 Medications: Current Medications Acetaminophen (Tylenol) 650 mg PO Q6H PRN PRN Reason: Headache/Fever or Pain Hydrocodone Bitart/Acetaminophen ([place] 5/325) 1 tab PO Q4H PRN PRN Reason: Moderate Pain (4-6) Al Hydroxide/Mg Hydroxide (Maalox) 30 ml PO Q4H PRN PRN Reason: Indigestion Aspirin (Ecotrin) 325 mg PO DAILY [facility] Atorvastatin Calcium (Lipitor) 20 mg PO HS [facility] Bisacodyl (Dulcolax) 10 mg PO Q12H PRN PRN Reason: Constipation Bisacodyl (Dulcolax) 10 mg MD Q12H PRN PRN Reason: Constipation Dextrose/Water (Dextrose 50%) 25 gm SLOW IVP PRN PRN PRN Reason: PER HYPOGLYCEMIC PROTOCOL Furosemide (Lasix) 40 mg PO DAILY-AC [facility] Glucagon (Glucagon) 1 mg SC PRN PRN PRN Reason: PER HYPOGLYCEMIC PROTOCOL Guaifenesin/Dextromethorphan (Robitussin Dm) 15 ml PO Q4H PRN PRN Reason: Cough Amiodarone HCl 450 mg/Miscellaneous Medication 1 each/ Dextrose/Water 259 mls @ 0 mls/hr IVPB INF ERNESTO; As Directed PRN Reason: Protocol Last Admin: 08/12/17 22:13 Dose: 259 mls Dextrose/Water (D5w) 1,000 mls @ 0 mls/hr IV INF PRN; As Directed PRN Reason: PRN HYPOGLYCEMIC PROTOCOL Insulin Human Regular (Humulin R) 0 units SC Q4H PRN; Protocol PRN Reason: POST OP SLIDING SCALE Last Admin: 08/13/17 11:15 Dose: 3 unit Mineral Oil (Fleet Mineral Oil) 133 ml MD DAILYPRN PRN PRN Reason: Constipation Nitroglycerin (Nitrostat) 0.4 mg SL Q5MIN PRN PRN Reason: Chest Pain Pantoprazole Sodium (Protonix) 40 mg PO DAILY [facility] Last Admin: 08/13/17 07:50 Dose: 40 mg Spironolactone (Aldactone) 12.5 mg PO QAM- [facility] Tamsulosin HCl (Flomax) 0.4 mg PO DAILY [facility] Last Admin: 08/13/17 10:11 Dose: Not Given
[2017-08-13] MEDS: Amiodarone HCl 450 MG, Admixture Fee 1 EACH in Dextrose 5% in Water 250 ML IVPB SCH ×3 (14:19)
--- NOTE | 2017-08-13 15:01 | PRG ---
DATE OF SERVICE: 08/13/2017 SUBJECTIVE: Mr. Fernandez has no complaints. He says he is feeling well. He denies having any chest pain. OBJECTIVE: VITAL SIGNS: He is afebrile, heart rate is 86, respiratory rate 16, oximetry is 93, blood pressure 1 50/75. LUNGS: Clear. CARDIOVASCULAR: Regular rhythm. S1 and S2 are normal. ABDOMEN: Soft. EXTREMITIES: Without clubbing, cyanosis, or edema. NEUROLOGIC: Nonfocal. LABORATORY DATA: White count 16.6, hemoglobin 10.8, platelets 113. Sodium 140, potassium 3.5, chlor toya 102, bicarbonate 36, BUN 30, creatinine 0.84. IMPRESSION: 1. Status post coronary artery bypass grafting. 2. Mild pulmonary edema, clinically improved. There is no radiograph today. 3. Coronary artery disease. 4. Small bilateral effusions. PLAN: Continue current care. He appears to be clinically stable.
--- NOTE | 2017-08-13 15:19 | PDOC.CTH ---
Cardiology Progress Note - Subjective He is doing well. No chest pain, tightness, pressure, SOB. NO more episodes of NSVT since amio started. - Objective Vital Signs Temp Pulse Pulse Pulse Resp BP BP 08/13/17 13:41 83 77 150/75 H 146/70 H 08/13/17 13:04 98.2 F 86 16 08/13/17 08:00 98.9 F 68 23 H 08/13/17 06:53 08/13/17 06:51 76 16 08/13/17 04:00 98.4 F BP Pulse Ox Pulse Ox Pulse Ox 08/13/17 13:41 95 93 L 08/13/17 13:04 139/69 93 L 08/13/17 08:00 92 L 08/13/17 06:53 95 08/13/17 06:51 95 08/13/17 04:00 Weight 191 lb 2.252 oz 08/12/17 08/13/17 08/14/17 06:59 06:59 06:59 Intake Total 1729 1793 460 Output Total 3410 2680 410 Balance -1681 -887 50 - Physical Examination General/Neuro: alert & oriented x3, NAD Neck: no JVD present Lungs: CTA, unlabored respirations Heart: RRR Abdomen: NT/ND Extremities: + edema B (1+) - Telemetry Telemetry Rhythm: NSR - Labs Result Diagrams: 08/13/17 03:23 08/13/17 03:23 Troponin/CKMB CK-MB (CK-2) 1.4 ng/mL (0-6.6) 08/07/17 01:57 Troponin I 0.017 ng/mL (< 0.028) 08/07/17 18:41 - Assessment/Plan 1. Multivessel CAD. 2. S/P CABG 3. Severe ischemic CM EF at 15-20% 4. Non sustained VT PLAN: - Continue post op care - Aspirin and statin for life - Will start low dose coreg today. Already on Aldactone. - ACEI/ARB tomorrow if tolerated. - Will switch amio to PO today. - Will need a lifevest on discharge.
[2017-08-13] MEDS: Carvedilol 3.125 MG TAB PO SCH (17:05)
[2017-08-13] MEDS: Atorvastatin Calcium 20 MG TAB PO SCH (20:47)
[2017-08-13] MEDS: Amiodarone 200 MG TAB PO SCH (20:48)
[2017-08-14] MEDS: Furosemide 40 MG TAB PO SCH (07:46)
[2017-08-14] MEDS: Spironolactone 25 MG TAB PO SCH (07:46)
[2017-08-14] MEDS: Carvedilol 3.125 MG TAB PO SCH (07:46)
[2017-08-14] MEDS: Amiodarone 200 MG TAB PO SCH ×2 (07:46→20:42)
[2017-08-14] MEDS: Aspirin 325 mg Enteric Coated Tablet PO SCH (07:47)
[2017-08-14] MEDS: Tamsulosin HCl 0.4 MG CAP PO SCH (07:47)
[2017-08-14 11:46] LABS: Hemoglobin A1c 5.8 % (4.0-6.0)
[2017-08-14 11:49] LABS: Band 7 % (5-11); Eosinophils 3 % (0-10); Hemoglobin 13.1 g/dL (14.0-18.0); Lymphocytes 11 % (21-51); MDiff Complete? YES; Mean Corpuscular HGB CONC 31.9 g/dL (32.0-36.0); Mean Corpuscular Hemoglobin 31.6 pg (27.0-31.0); Mean Platelet Volume 8.2 fL (7.4-10.4); Metamyelocyte 1 % (0-0); Monocytes 8 % (0-10); Neutrophil 68 % (42-75); Platelet Count 169 thou/uL (130-400); RBC Distribution Width 12.2 % (11.5-14.5); RBC Morphology Normal; Reactive Lymphocytes 2 % (0-10); Red Blood Cell (RBC) Count 4.16 mill/uL (4.70-6.10); White Blood Cell (WBC) Count 16.7 thou/uL (4.8-10.8)
[2017-08-14] MEDS ORDERED: Potassium Chloride 20 MEQ TAB PO SCH ×2 (12:00)
[2017-08-14] MEDS ORDERED: Losartan 25 MG TAB PO SCH ×2 (12:00)
--- NOTE | 2017-08-14 13:13 | PRG ---
DATE OF SERVICE: 08/14/2017 SUBJBECTIVE: Mr. Robbins this is doing well, sitting up in a chair. OBJECTIVE: VITAL SIGNS: Blood pressure 140/69, pulse 80. LUNGS: Had some mild expiratory wheezing. CARDIAC: Normal S1, normal S2. ABDOMEN: Soft, nontender. EXTREMITIES: There is no edema. LABORATORY DATA: Potassium yesterday was 3.5. The patient did have an episode of rapid ventricular tachycardia on 08/11, 26 beats, very fast. ASSESSMENT: 1. Severely depressed left ventricular function, ejection fraction below 20%. 2. Nonsustained ventricular tachycardia, some of its very rapid, bifascicular block preoperatively, right bundle is no longer present on the EKG. PLAN: 1. He is on amiodarone. 2. Increase carvedilol. 3. Add angiotensin receptor leonidas. 4. Spironolactone. 5. Given potassium, check potassium in the morning. 6. We will need a LifeVest prior to discharge. Long-term prognosis is guarded.
--- NOTE | 2017-08-14 14:45 | PDOC.PN ---
- Subjective Encounter Start Date: 08/14/17 Encounter Start Time: 10:15 Subjective: pt up in bed no compalins - Objective Vital Signs & Weight: Vital Signs (12 hours) Temp Pulse Pulse Pulse Resp BP BP 08/14/17 12:23 74 74 141/69 H 109/62 08/14/17 11:46 98.2 F 69 18 08/14/17 09:33 74 70 144/73 H 127/70 08/14/17 07:44 97.8 F 80 16 08/14/17 03:20 97.9 F 69 16 BP BP BP Pulse Ox Pulse Ox Pulse Ox 08/14/17 12:23 96 97 08/14/17 11:46 114/56 L 98 08/14/17 09:33 96 94 L 08/14/17 07:44 140/69 93 L 08/14/17 03:20 118/65 91 L Weight Weight 182 lb 14.4 oz Most Recent Monitor Data Heart Rate from ECG 77 NIBP 134/64 NIBP BP-Mean 99 Respiration from ECG 25 SpO2 94 I&O: 08/13/17 08/14/17 08/15/17 06:59 06:59 06:59 Intake Total 1793 1120 Output Total 2680 1365 Balance -887 -245 Result Diagrams: 08/14/17 11:11 08/13/17 03:23 Additional Labs: Accuchecks 08/14/17 08/14/17 08/13/17 12:21 05:28 19:53 POC Glucose 111 H 93 117 H 08/13/17 16:34 POC Glucose 116 H Phys Exam - Physical Examination HEENT: PERRLA, moist MMs, sclera anicteric, TM's clear, oral pharynx no lesions , 2+ tonsils Neck: no nodes, no JVD, supple, full ROM Respiratory: wheezing present Cardiovascular: RRR, no significant murmur, no rub, gallop, irregular incision intact Gastrointestinal: soft, non-tender, no distention, positive bowel sounds Dx/Plan - Plan 1) Nstemi 2) cad s/p CABG 3) chf systolic new 4) tobacco use 5) non sustain vt plan: pt underwent CABG. Pt to be extubated today per nurse. Pt on asa. blood pressure low to be started on any cardiac meds. pt to be transferred to floor today. Encouraged pt to use Incentive spirometry. pt on asa/statin/aldactone. pt is also on oral amio. will add stool softeners. will also order nebs. discharge when ok with cardio and surgery. * . Review of Systems - Review of Systems Eyes: negative: Pain, Vision Change, Conjunctivae Inflammation, Eyelid Inflammation, Redness, Other ENT: negative: Ear Pain, Ear Discharge, Nose Pain, Nose Discharge, Nose Congestion, Mouth Pain, Mouth Swelling, Throat Pain, Throat Swelling, Other Respiratory: negative: Cough, Dry, Shortness of Breath, Hemoptysis, SOB with Excertion, Pleuritic Pain, Sputum, Wheezing Cardiovascular: negative: chest pain, palpitations, orthopnea, paroxysmal nocturnal dyspnea, edema, light headedness, other Gastrointestinal: negative: Nausea, Vomiting, Abdominal Pain, Diarrhea, Constipation, Melena, Hematochezia, Other Genitourinary: negative: Dysuria, Frequency, Incontinence, Hematuria, Retention , Other Musculoskeletal: negative: Neck Pain, Shoulder Pain, Arm Pain, Back Pain, Hand Pain, Leg Pain, Foot Pain, Other - Medications/Allergies Allergies/Adverse Reactions: Allergies Allergy/AdvReac Type Severity Reaction Status Date / Time No Known Allergies Allergy Verified 08/07/17 04:49 Medications: Current Medications Acetaminophen (Tylenol) 650 mg PO Q6H PRN PRN Reason: Headache/Fever or Pain Hydrocodone Bitart/Acetaminophen ([place] 5/325) 1 tab PO Q4H PRN PRN Reason: Moderate Pain (4-6) Last Admin: 08/13/17 20:47 Dose: 1 tab Al Hydroxide/Mg Hydroxide (Maalox) 30 ml PO Q4H PRN PRN Reason: Indigestion Amiodarone HCl (Cordarone) 400 mg PO BID [facility] Last Admin: 08/14/17 07:46 Dose: 400 mg Aspirin (Ecotrin) 325 mg PO DAILY [facility] Last Admin: 08/14/17 07:47 Dose: 325 mg Atorvastatin Calcium (Lipitor) 20 mg PO [facility] Last Admin: 08/13/17 20:47 Dose: 20 mg Bisacodyl (Dulcolax) 10 mg PO Q12H PRN PRN Reason: Constipation Bisacodyl (Dulcolax) 10 mg [place] Q12H PRN PRN Reason: Constipation Carvedilol (Coreg) 6.25 mg PO BID-[facility] Dextrose/Water (Dextrose 50%) 25 gm SLOW IVP PRN PRN PRN Reason: PER HYPOGLYCEMIC PROTOCOL Furosemide (Lasix) 40 mg PO DAILY-[facility] Last Admin: 08/14/17 07:46 Dose: 40 mg Glucagon (Glucagon) 1 mg SC PRN PRN PRN Reason: PER HYPOGLYCEMIC PROTOCOL Guaifenesin/Dextromethorphan (Robitussin Dm) 15 ml PO Q4H PRN PRN Reason: Cough Dextrose/Water (D5w) 1,000 mls @ 0 mls/hr IV INF PRN; As Directed PRN Reason: PRN HYPOGLYCEMIC PROTOCOL Insulin Human Regular (Humulin R) 0 units SC Q4H PRN; Protocol PRN Reason: POST OP SLIDING SCALE Last Admin: 08/13/17 11:15 Dose: 3 unit Ipratropium [place] (Atrovent) 2.5 ml NEB [id number] [facility] Losartan Potassium (Cozaar) 50 mg PO DAILY [facility] Mineral Oil (Fleet Mineral Oil) 133 ml [place] DAILYPRN PRN PRN Reason: Constipation Nitroglycerin (Nitrostat) 0.4 mg SL Q5MIN PRN PRN Reason: Chest Pain Pantoprazole Sodium (Protonix) 40 mg PO DAILY [facility] Last Admin: 08/14/17 07:47 Dose: 40 mg Senna/Docusate Sodium (Senokot S) 1 tab PO BID [facility] Spironolactone (Aldactone) 12.5 mg PO QAM-[facility] Last Admin: 08/14/17 07:46 Dose: 12.5 mg Tamsulosin HCl (Flomax) 0.4 mg PO DAILY [facility] Last Admin: 08/14/17 07:47 Dose: 0.4 mg
[2017-08-14] MEDS: Ipratropium Bromide 2.5 ml Neb NEB SCH ×3 (14:58→22:27)
[2017-08-14] MEDS: Carvedilol 6.25 MG TAB PO SCH (16:39)
[2017-08-14] MEDS: Senokot S 8.6-50 MG TAB PO SCH (20:42)
[2017-08-14] MEDS: Atorvastatin Calcium 20 MG TAB PO SCH (20:42)
[2017-08-15] MEDS: Ipratropium Bromide 2.5 ml Neb NEB SCH ×6 (02:20→22:16)
[2017-08-15 05:24] LABS: Band 3 % (5-11); Eosinophils 1 % (0-10); Hemoglobin 11.3 g/dL (14.0-18.0); Lymphocytes 5 % (21-51); MDiff Complete? YES; Mean Corpuscular HGB CONC 33.2 g/dL (32.0-36.0); Mean Corpuscular Hemoglobin 31.6 pg (27.0-31.0); Mean Corpuscular Volume 95.2 fl (80.0-94.0); Mean Platelet Volume 7.7 fL (7.4-10.4); Metamyelocyte 1 % (0-0); Monocytes 5 % (0-10); Myelocyte 3 % (0-0); Neutrophil 82 % (42-75); Platelet Count 163 thou/uL (130-400); RBC Distribution Width 12.1 % (11.5-14.5); Red Blood Cell (RBC) Count 3.58 mill/uL (4.70-6.10); White Blood Cell (WBC) Count 15.2 thou/uL (4.8-10.8)
[2017-08-15 05:42] LABS: Anion Gap 10 mmol/L (10-20); BUN (Urea Nitrogen) 22 mg/dL (8.4-25.7); Calc. Creatinine Clearance 107 mL/min (70-130); Calcium 8.6 mg/dL (7.8-10.44); Carbon Dioxide 33 mmol/L (23-31); Chloride 99 mmol/L (98-107); Estimated GFR-MDRD Greater than 90; Glucose 105 mg/dL (83-110); Potassium 3.9 mmol/L (3.5-5.1); Sodium 138 mmol/L (136-145)
[2017-08-15] MEDS: Tamsulosin HCl 0.4 MG CAP PO SCH (08:33)
[2017-08-15] MEDS: Aspirin 325 mg Enteric Coated Tablet PO SCH (08:33)
[2017-08-15] MEDS: Losartan 25 MG TAB PO SCH ×2 (08:33)
[2017-08-15] MEDS: Carvedilol 6.25 MG TAB PO SCH ×2 (08:34→16:20)
[2017-08-15] MEDS: Spironolactone 25 MG TAB PO SCH (08:34)
[2017-08-15] MEDS: Senokot S 8.6-50 MG TAB PO SCH ×2 (08:34→20:55)
[2017-08-15] MEDS: Furosemide 40 MG TAB PO SCH (08:34)
[2017-08-15] MEDS: Amiodarone 200 MG TAB PO SCH ×2 (08:34→20:55)
--- NOTE | 2017-08-15 09:29 | RAD ---
CHEST 2 VIEWS: Date: 08/15/17 HISTORY: Shortness of breath. COMPARISON: Chest radiograph dated 08/12/17. FINDINGS: Blunting left lateral costophrenic sulci, worse on the right. Central venous catheter is in place, ti p inferior SVC. There appears to be some subcutaneous emphysema of the right neck, as well as of the left pectoralis muscle. IMPRESSION: Interval development of subcutaneous emphysema along the right neck, as well as pectoralis muscles bi laterally. POS: [facility]
--- NOTE | 2017-08-15 11:32 | PRG ---
DATE OF SERVICE: 08/15/2017 SERVICE: Pulmonary Medicine. INTERVAL HISTORY: The patient denies any chest pain, shortness of breath or chills. He is sitting o n the side of bed, eating dinner that his significant other brought to him. He denies any current sh ortness of breath or cough. Overall, he is feeling his strength is improving, but he is not back to baseline yet. PHYSICAL EXAMINATION: VITAL SIGNS: Afebrile, pulse 74, blood pressure 129/67, respirations 18, saturation 96% on 2 liters nasal cannula. GENERAL: The patient is awake, alert, no apparent distress. LUNGS: Decent air entry on the left. Crackles are present. There is very poor air entry at the rig ht base. Otherwise, there is no prolonged expiratory phase or wheezing appreciated. HEART: Normal rate, regular. ABDOMEN: Soft, nontender, and nondistended. Bowel sounds positive. MUSCULOSKELETAL: No cyanosis or clubbing. There is no pitting in the bilateral lower extremities. NEUROLOGIC: Grossly nonfocal. LABORATORY DATA: WBC 15.2 and gently down trending, hemoglobin 11.3, platelets 163,000. INR 1.5. B asic metabolic profile is essentially unremarkable except for bicarbonate of 33. Creatinine 0.75 and roughly stable. IMAGING: Chest x-ray demonstrates right-sided pleural effusion. Lungs are hyperexpanded. There is subcutaneous emphysema noted in the right neck. ASSESSMENT: 1. Acute hypoxic respiratory failure, slowly improving. 2. Acute systolic heart failure. 3. Coronary artery disease, severe. 4. Coronary bypass graft, postoperative day #6. 5. Right-sided pleural effusion. DISCUSSION AND PLAN: The patient is doing fairly well from a respiratory standpoint. We will wean o xygen away as tolerated. Hopefully, once he is down to room air, he will be a candidate for discharg e from the hospital. He will certainly require a LifeVest in the outpatient setting. He may benefit from outpatient evaluation for COPD as he had a prolonged expiratory phase on the ventilator. Verna france will continue to follow for the time being.
--- NOTE | 2017-08-15 13:30 | STRESS ---
Acquisition Time: 2017-08-07 14:08:56 Total Exercise Time: 00:01:00 Test Indications: SHORTNESS OF BREATH Medications: Protocol: LEXISCAN Max HR: 095 BPM 63% of Pred: 149 BPM Max BP: 122/060 mmHG Max Work Load: 1.0 METS RESTING ECG: NORMAL SINUS RHYTHM AT 81 BPM; LEFT VENTRICULAR HYPERTROPHY WITH REPOLARIZATION ABNORMALITY SYMPTOMS: SHORTNESS OF BREATH NORMAL BP RESPONSE ECTOPY: RARE PVC'S ECG STRESS: NO SIGNIFICANT CHANGES INTERPRETATION: AWAIT NUCLEAR IMAGES FOR DEFINITIVE DIAGNOSIS Confirmed by MISTY NIETO, KANDY ([id number]), editor map PRAVIN BROWN ([id number]) on 08/15/2017 1:30:01 PM Referred By: MD Hetal SINGH Confirmed By:KANDY NIETO PA-C
--- NOTE | 2017-08-15 14:12 | PDOC.PN ---
- Subjective Encounter Start Date: 08/15/17 Encounter Start Time: 10:00 Patient is seen today, alert and oriented. Discussed with at bedside, Pt has no worseinbg chest poain, or SOB, today chest xray showed subcutaneous Emphesema discussed with nurse. - Objective MAR Reviewed: Yes Vital Signs & Weight: Vital Signs (12 hours) Temp Pulse Resp BP BP Pulse Ox 08/15/17 14:06 66 20 08/15/17 11:40 98.1 F 82 16 94/55 L 98 08/15/17 11:21 80 21 H 08/15/17 07:55 75 21 H 08/15/17 07:12 97.6 F 74 18 129/67 96 08/15/17 05:13 98.3 F 75 16 115/58 L 92 L 08/15/17 02:20 75 16 96 Weight Weight 184 lb 1.6 oz Most Recent Monitor Data Heart Rate from ECG 77 NIBP 134/64 NIBP BP-Mean 99 Respiration from ECG 25 SpO2 94 I&O: 08/14/17 08/15/17 08/16/17 06:59 06:59 06:59 Intake Total 1120 1260 Output Total 1365 1925 Balance -245 -665 Result Diagrams: 08/15/17 04:25 08/15/17 04:25 Additional Labs: Accuchecks 08/15/17 08/15/17 08/14/17 10:18 05:46 20:29 POC Glucose 163 H 155 H 117 H 08/14/17 17:06 POC Glucose 101 Radiology Reviewed by me: Yes EKG Reviewed by me: Yes Phys Exam - Physical Examination HEENT: PERRLA, moist MMs Neck: no nodes, no JVD Respiratory: no wheezing, no rales Cardiovascular: RRR, no significant murmur Gastrointestinal: soft, non-tender Musculoskeletal: no edema, pulses present Neurological: non-focal, normal sensation Psychiatric: normal affect, A&O x 3 Skin: no rash, normal turgor Dx/Plan (1) CHF (congestive heart failure) Code(s): I50.9 - HEART FAILURE, UNSPECIFIED Status: Acute Qualifiers: Heart failure type: systolic Comment: continue furosemide , Will closley Monitor for any overload. low EF 20% , pt on Lifevest now. (2) NSTEMI (non-ST elevated myocardial infarction) Code(s): I21.4 - NON-ST ELEVATION (NSTEMI) MYOCARDIAL INFARCTION Status: Acute Comment: s/p CABG stbale, but developed Subcutaneous Emphesema, will monitro closley likely from Chest tube leak (3) CAD (coronary artery disease) Code(s): I25.10 - ATHSCL HEART DISEASE OF [place] CORONARY ARTERY W/O ANG PCTRS Status: Chronic Comment: s/p CABG , Stable, no chest pain. (4) Cardiomyopathy Code(s): I42.9 - CARDIOMYOPATHY, UNSPECIFIED Status: Chronic Comment: On beta leonidas and ACEI (5) Subcutaneous emphysema associated with surgical procedure Code(s): T81.82XA - EMPHYSEMA (SUBCUTANEOUS) RESULTING FROM A PROCEDURE, INIT Status: Acute Qualifiers: Encounter type: initial encounter Qualified Code(s): T81.82XA - Emphysema ( subcutaneous) resulting from a procedure, initial encounter Comment: Today chest xray showed Subcutaneosu Emphesema, likely from Chest tube , will closley monitor no compromise of ventilation. Discussed with nurse to inform Dr. vogt. - Plan cont current plan of care, plan discussed w/ family, PT/OT, respiratory therapy , incentive spirometry, out of bed/ambulate, DVT proph w/SCDs * . - Discharge Day Encounter end time: 10:35 Review of Systems - Review of Systems Constitutional: malaise Eyes: negative: Pain, Vision Change, Conjunctivae Inflammation, Eyelid Inflammation, Redness, Other ENT: negative: Ear Pain, Ear Discharge, Nose Pain, Nose Discharge, Nose Congestion, Mouth Pain, Mouth Swelling, Throat Pain, Throat Swelling, Other Respiratory: Shortness of Breath, SOB with Excertion, Wheezing Cardiovascular: negative: chest pain, palpitations, orthopnea, paroxysmal nocturnal dyspnea, edema, light headedness, other Gastrointestinal: negative: Nausea, Vomiting, Abdominal Pain, Diarrhea, Constipation, Melena, Hematochezia, Other Genitourinary: negative: Dysuria, Frequency, Incontinence, Hematuria, Retention , Other Musculoskeletal: negative: Neck Pain, Shoulder Pain, Arm Pain, Back Pain, Hand Pain, Leg Pain, Foot Pain, Other Skin: negative: Rash, Lesions, Primitivo, Bruising, Other Neurological: negative: Weakness, Numbness, Incoordination, Change in Speech, Confusion, Seizures, Other - Medications/Allergies Allergies/Adverse Reactions: Allergies Allergy/AdvReac Type Severity Reaction Status Date / Time No Known Allergies Allergy Verified 08/07/17 04:49 Medications: Current Medications Acetaminophen (Tylenol) 650 mg PO Q6H PRN PRN Reason: Headache/Fever or Pain Hydrocodone Bitart/Acetaminophen ([place] 5/325) 1 tab PO Q4H PRN PRN Reason: Moderate Pain (4-6) Last Admin: 08/13/17 20:47 Dose: 1 tab Al Hydroxide/Mg Hydroxide (Maalox) 30 ml PO Q4H PRN PRN Reason: Indigestion Amiodarone HCl (Cordarone) 200 mg PO BID [facility] Aspirin (Ecotrin) 325 mg PO DAILY [facility] Last Admin: 08/15/17 08:33 Dose: 325 mg Atorvastatin Calcium (Lipitor) 20 mg PO HS [facility] Last Admin: 08/14/17 20:42 Dose: 20 mg Bisacodyl (Dulcolax) 10 mg PO Q12H PRN PRN Reason: Constipation Bisacodyl (Dulcolax) [address] Q12H PRN PRN Reason: Constipation Carvedilol (Coreg) 12.5 mg PO BID-[facility] Dextrose/Water (Dextrose 50%) 25 gm SLOW IVP PRN PRN PRN Reason: PER HYPOGLYCEMIC PROTOCOL Furosemide (Lasix) 40 mg PO DAILY-[facility] Last Admin: 08/15/17 08:34 Dose: 40 mg Glucagon (Glucagon) 1 mg SC PRN PRN PRN Reason: PER HYPOGLYCEMIC PROTOCOL Guaifenesin/Dextromethorphan (Robitussin Dm) 15 ml PO Q4H PRN PRN Reason: Cough Dextrose/Water (D5w) 1,000 mls @ 0 mls/hr IV INF PRN; As Directed PRN Reason: PRN HYPOGLYCEMIC PROTOCOL Insulin Human Regular (Humulin R) 0 units [place] Q4H PRN; Protocol PRN Reason: POST OP SLIDING SCALE Last Admin: 08/13/17 11:15 Dose: 3 unit Ipratropium [place] (Atrovent) 2.5 ml NEB [id number] [facility] Last Admin: 08/15/17 14:06 Dose: 2.5 ml Losartan Potassium (Cozaar) 50 mg PO DAILY [facility] Last Admin: 08/15/17 08:33 Dose: 50 mg Mineral Oil (Fleet Mineral Oil) [address] DAILYPRN PRN PRN Reason: Constipation Nitroglycerin (Nitrostat) 0.4 mg SL Q5MIN PRN PRN Reason: Chest Pain Pantoprazole Sodium (Protonix) 40 mg PO DAILY [facility] Last Admin: 08/15/17 08:34 Dose: 40 mg Senna/Docusate Sodium (Senokot S) 1 tab PO BID [facility] Last Admin: 08/15/17 08:34 Dose: 1 tab Spironolactone (Aldactone) 12.5 mg PO QAM-[facility] Last Admin: 08/15/17 08:34 Dose: 12.5 mg Tamsulosin HCl (Flomax) 0.4 mg PO DAILY [facility] Last Admin: 08/15/17 08:33 Dose: 0.4 mg
[2017-08-15] MEDS: Insulin Regular 300 UNITS/3 ML VIAL SC PRN (20:55)
[2017-08-15] MEDS: Atorvastatin Calcium 20 MG TAB PO SCH (20:55)
[2017-08-16] MEDS: Ipratropium Bromide 2.5 ml Neb NEB SCH ×6 (02:21→22:25)
[2017-08-16] MEDS: Tamsulosin HCl 0.4 MG CAP PO SCH (09:04)
[2017-08-16] MEDS: Aspirin 325 mg Enteric Coated Tablet PO SCH (09:04)
[2017-08-16] MEDS: Senokot S 8.6-50 MG TAB PO SCH ×2 (09:04→20:40)
[2017-08-16] MEDS: Spironolactone 25 MG TAB PO SCH (09:04)
[2017-08-16] MEDS: Losartan 25 MG TAB PO SCH ×2 (09:04)
[2017-08-16] MEDS: Carvedilol 6.25 MG TAB PO SCH ×3 (09:04→23:56)
[2017-08-16] MEDS: Furosemide 40 MG TAB PO SCH (09:05)
[2017-08-16] MEDS: Amiodarone 200 MG TAB PO SCH ×2 (09:05→20:40)
--- NOTE | 2017-08-16 10:00 | PRG ---
DATE OF SERVICE: 08/16/2017 SUBJECTIVE: Mr. Robbins is doing well today, no chest pain or pressure, feels well. OBJECTIVE: VITAL SIGNS: Blood pressure 120/68, pulse 70. LUNGS: Clear. CARDIAC: Normal S1, normal S2. ASSESSMENT: 1. Status post bypass surgery. 2. Severely depressed left ventricular function, ejection fraction 15%-20%. 3. Nonsustained ventricular tachycardia. 4. Diabetes. 5. History of hypercholesterolemia. PLAN: 1. Admit the patient is currently on Carvedilol 12.5 mg twice a day. 2. Losartan 50 mg a day. 3. Furosemide 40 mg a day. 4. Spironolactone 12.5 mg a day. We will increase it to 25. 5. The patient is to follow up in the office in 2-3 weeks to see Barby Barone. The patient also has a LifeVest in place. We will likely need defibrillator implantation if ejection fraction is not over 35% within 3 months or has an episode of symptomatic ventricular arrhythmia. The patient is also on tamsulosin 0.4 mg a day as well as Protonix, aspirin and atorvastatin 20 mg a day.
[2017-08-16] MEDS: Insulin Regular 300 UNITS/3 ML VIAL SC PRN ×2 (13:02→20:58)
--- NOTE | 2017-08-16 15:17 | PDOC.PN ---
- Subjective Encounter Start Date: 08/16/17 Encounter Start Time: 10:30 Patient is sen today, alert and oriented. No other concern noted. He is on Nasal canula, and has persistent crepetus on his chest from subcutaneous Emphysema. - Objective Vital Signs & Weight: Vital Signs (12 hours) Temp Pulse Pulse Pulse Resp BP BP 08/16/17 13:53 75 20 08/16/17 12:30 68 69 95/55 L 89/50 L 08/16/17 12:20 08/16/17 11:37 98.8 F 74 18 08/16/17 10:35 08/16/17 10:31 74 24 H 08/16/17 08:48 89 79 117/56 L 127/62 08/16/17 07:32 98.5 F 70 16 08/16/17 06:44 08/16/17 06:35 68 18 08/16/17 04:00 98.8 F 64 20 BP BP Pulse Ox Pulse Ox Pulse Ox 08/16/17 13:53 93 L 08/16/17 12:30 100 08/16/17 12:20 98 08/16/17 11:37 104/59 L 98 08/16/17 10:35 87 L 08/16/17 10:31 87 L 08/16/17 08:48 97 94 L 08/16/17 07:32 120/68 91 L 08/16/17 06:44 100 08/16/17 06:35 98 08/16/17 04:00 104/59 L 95 Weight Weight 179 lb 12.8 oz Most Recent Monitor Data Heart Rate from ECG 77 NIBP 134/64 NIBP BP-Mean 99 Respiration from ECG 25 SpO2 94 I&O: 08/15/17 08/16/17 08/17/17 06:59 06:59 06:59 Intake Total 1260 1560 Output Total 5037 4235 Balance -665 -115 Result Diagrams: 08/15/17 04:25 08/15/17 04:25 Additional Labs: Accuchecks 08/16/17 08/16/17 08/15/17 11:13 05:46 20:45 POC Glucose 237 H 133 H 322 H 08/15/17 16:36 POC Glucose 102 Radiology Reviewed by me: Yes EKG Reviewed by me: Yes Phys Exam - Physical Examination HEENT: PERRLA, moist MMs Neck: no nodes, no JVD Respiratory: no rales, wheezing present right Lung crackles noted. Cardiovascular: RRR, no significant murmur Gastrointestinal: soft, non-tender Musculoskeletal: no edema, pulses present Neurological: non-focal, normal sensation Lymphatic: no nodes Psychiatric: normal affect, A&O x 3 Dx/Plan (1) CHF (congestive heart failure) Code(s): I50.9 - HEART FAILURE, UNSPECIFIED Status: Acute Qualifiers: Heart failure type: systolic Comment: continue furosemide , Will closley Monitor for any overload. low EF 20% , pt on Lifevest now. (2) NSTEMI (non-ST elevated myocardial infarction) Code(s): I21.4 - NON-ST ELEVATION (NSTEMI) MYOCARDIAL INFARCTION Status: Acute Comment: s/p CABG stbale, but developed Subcutaneous Emphesema, will monitro closley likely from Chest tube leak (3) CAD (coronary artery disease) Code(s): I25.10 - ATHSCL HEART DISEASE OF [place] CORONARY ARTERY W/O ANG PCTRS Status: Chronic Comment: s/p CABG , Stable, no chest pain. (4) Cardiomyopathy Code(s): I42.9 - CARDIOMYOPATHY, UNSPECIFIED Status: Chronic Comment: On beta leonidas and ACEI (5) Subcutaneous emphysema associated with surgical procedure Code(s): T81.82XA - EMPHYSEMA (SUBCUTANEOUS) RESULTING FROM A PROCEDURE, INIT Status: Acute Qualifiers: Encounter type: initial encounter Qualified Code(s): T81.82XA - Emphysema ( subcutaneous) resulting from a procedure, initial encounter Comment: chest xray showed Subcutaneosu Emphesema, likely from Chest tube, will closley monitor no compromise of ventilation. Discussed with nurse to inform Dr. Goodwin, Will repeat chest xray tomorrow. - Plan cont current plan of care, ponce catheter, PT/OT, social media analyst, speech therapy, respiratory therapy, DVT proph w/lovenox * . - Discharge Day Encounter end time: 11:10 Review of Systems - Review of Systems Eyes: negative: Pain, Vision Change, Conjunctivae Inflammation, Eyelid Inflammation, Redness, Other ENT: negative: Ear Pain, Ear Discharge, Nose Pain, Nose Discharge, Nose Congestion, Mouth Pain, Mouth Swelling, Throat Pain, Throat Swelling, Other Respiratory: Shortness of Breath, SOB with Excertion, Pleuritic Pain. negative : Cough, Dry, Hemoptysis, Sputum, Wheezing Cardiovascular: negative: chest pain, palpitations, orthopnea, paroxysmal nocturnal dyspnea, edema, light headedness, other Gastrointestinal: negative: Nausea, Vomiting, Abdominal Pain, Diarrhea, Constipation, Melena, Hematochezia, Other Musculoskeletal: negative: Neck Pain, Shoulder Pain, Arm Pain, Back Pain, Hand Pain, Leg Pain, Foot Pain, Other - Medications/Allergies Allergies/Adverse Reactions: Allergies Allergy/AdvReac Type Severity Reaction Status Date / Time No Known Allergies Allergy Verified 08/07/17 04:49 Medications: Current Medications Acetaminophen (Tylenol) 650 mg PO Q6H PRN PRN Reason: Headache/Fever or Pain Hydrocodone Bitart/Acetaminophen ([place] 5/325) 1 tab PO Q4H PRN PRN Reason: Moderate Pain (4-6) Last Admin: 08/13/17 20:47 Dose: 1 tab Al Hydroxide/Mg Hydroxide (Maalox) 30 ml PO Q4H PRN PRN Reason: Indigestion Amiodarone HCl (Cordarone) 200 mg PO BID [facility] Last Admin: 08/16/17 09:05 Dose: 200 mg Aspirin (Ecotrin) 325 mg PO DAILY [facility] Last Admin: 08/16/17 09:04 Dose: 325 mg Atorvastatin Calcium (Lipitor) 20 mg PO [facility] Last Admin: 08/15/17 20:55 Dose: 20 mg Bisacodyl (Dulcolax) 10 mg PO Q12H PRN PRN Reason: Constipation Bisacodyl (Dulcolax) 10 mg [place] Q12H PRN PRN Reason: Constipation Carvedilol (Coreg) 12.5 mg PO BID-[facility] Last Admin: 08/16/17 09:04 Dose: 12.5 mg Dextrose/Water (Dextrose 50%) 25 gm SLOW IVP PRN PRN PRN Reason: PER HYPOGLYCEMIC PROTOCOL Furosemide (Lasix) 40 mg PO DAILY-[facility] Last Admin: 08/16/17 09:05 Dose: 40 mg Glucagon (Glucagon) 1 mg [place] PRN PRN PRN Reason: PER HYPOGLYCEMIC PROTOCOL Guaifenesin/Dextromethorphan (Robitussin Dm) 15 ml PO Q4H PRN PRN Reason: Cough Dextrose/Water (D5w) 1,000 mls @ 0 mls/hr IV INF PRN; As Directed PRN Reason: PRN HYPOGLYCEMIC PROTOCOL Insulin Human Regular (Humulin R) 0 units [place] Q4H PRN; Protocol PRN Reason: POST OP SLIDING SCALE Last Admin: 08/16/17 13:02 Dose: 6 unit Ipratropium [place] (Atrovent) 2.5 ml NEB [id number] [facility] Last Admin: 08/16/17 13:53 Dose: 2.5 ml Losartan Potassium (Cozaar) 50 mg PO DAILY [facility] Last Admin: 08/16/17 09:04 Dose: 50 mg Mineral Oil (Fleet Mineral Oil) 133 ml [place] DAILYPRN PRN PRN Reason: Constipation Nitroglycerin (Nitrostat) 0.4 mg SL Q5MIN PRN PRN Reason: Chest Pain Pantoprazole Sodium (Protonix) 40 mg PO DAILY [facility] Last Admin: 08/16/17 09:05 Dose: 40 mg Senna/Docusate Sodium (Senokot S) 1 tab PO BID [facility] Last Admin: 08/16/17 09:04 Dose: 1 tab Spironolactone (Aldactone) 25 mg PO QAM-[facility] Tamsulosin HCl (Flomax) 0.4 mg PO DAILY [facility] Last Admin: 08/16/17 09:04 Dose: 0.4 mg
--- NOTE | 2017-08-16 18:04 | RAD ---
CHEST ONE VIEW: 08/16/17 HISTORY: 72-year-old male with history of subcutaneous emphysema with shortness of breath. COMPARISON: 08/15/17. Fairly extensive monitoring devices overlie the chest somewhat obscuring it. Postop midline sternotom y. Cardiomegaly with bilateral vascular congestion and bilateral pleural effusions, somewhat greater on the right side with possible mild interstitial edema, The bilateral subcutaneous emphysema appears to have resolved or markedly improved. IMPRESSION: Cardiomegaly with bilateral vascular congestion and mild interstitial edema and pleural effusions wit h little change from the prior study. Essential resolution/marked improvement of the previously noted bilateral subcutaneous emphysema. POS: [facility]
[2017-08-16] MEDS: Atorvastatin Calcium 20 MG TAB PO SCH (20:40)
[2017-08-16] MEDS ORDERED: Sodium Chloride 0.9% 250 ML 250 ML IVPB SCH (21:00)
[2017-08-17] MEDS: Ipratropium Bromide 2.5 ml Neb NEB SCH ×4 (02:15→14:14)
--- NOTE | 2017-08-17 06:42 | DIS ---
DATE OF ADMISSION: 08/07/2018 DATE OF DISCHARGE: 08/17/2017 08/07/2017 DIAGNOSES: 1. Coronary artery disease. 2. Myocardial infarction. 3. Congestive heart failure. 4. Severely depressed left ventricular ejection fraction. 5. Hyperlipidemia. 6. Tobacco abuse. 7. Hypertension. PROCEDURES: 1. Cardiac catheterization. 2. Coronary bypass grafting x3 - left internal mammary artery to LAD, reverse saphenous vein to OM; reverse saphenous vein to PDA. DESCRIPTION OF HOSPITAL STAY: Mr. Jim Robbins presented through the emergency department with eloina re shortness of breath. Nuclear stress test has been performed which was markedly abnormal, which le d to cardiac catheterization that showed severe 3-vessel disease with ejection fraction of under 20%. He underwent bypass as above and postoperatively, he has done really remarkably well. He has progr essed to the point of being discharged home. He has a LifeVest and will be discharged today. DISCHARGE MEDICATIONS: 1. Aspirin 325 mg every day. 2. Amiodarone 200 mg b.i.d. 3. Lipitor 20 mg. 4. Coreg 12.5 mg b.i.d. 5. Lasix 40 mg every day. 6. Cozaar 50 mg every day. 7. Aldactone 25 mg daily. 8. Flomax 0.4 mg daily. 9. Grandy 5/325 1-2 q.6 hours p.r.n. pain. FOLLOWUP: Follow up is with me in 2 weeks, Dr. Eddy in a month and with [facility].
[2017-08-17] MEDS ORDERED: Spironolactone 25 MG TAB PO SCH (08:00)
[2017-08-17] MEDS: Senokot S 8.6-50 MG TAB PO SCH (09:16)
[2017-08-17] MEDS: Tamsulosin HCl 0.4 MG CAP PO SCH (09:16)
[2017-08-17] MEDS: Furosemide 40 MG TAB PO SCH (09:16)
[2017-08-17] MEDS: Losartan 25 MG TAB PO SCH ×2 (09:16)
[2017-08-17] MEDS: Amiodarone 200 MG TAB PO SCH (09:17)
[2017-08-17] MEDS: Aspirin 325 mg Enteric Coated Tablet PO SCH (09:18)
[2017-08-17] MEDS: Carvedilol 6.25 MG TAB PO SCH (09:18)
--- NOTE | 2017-08-17 11:26 | PRG ---
DATE OF SERVICE: 08/17/2017 SERVICE: Pulmonary Medicine. INTERVAL HISTORY: The patient is doing fine from a respiratory standpoint. He denies any current fe vers, chills, nausea, vomiting or shortness of breath. Otherwise, there has been no interval change to his condition. He feels much improved. He is working with physical therapy on day by day basis. PHYSICAL EXAMINATION: VITAL SIGNS: Afebrile, pulse 81, blood pressure 157/76, respirations 16, saturation 94% on room air. GENERAL: The patient is awake and alert, in no apparent distress. LUNGS: Decent air entry bilaterally with no prolonged expiratory phase, wheezing, rhonchi or crackle s. HEART: Normal rate, regular. ABDOMEN: Soft, nontender, nondistended. Bowel sounds are positive. MUSCULOSKELETAL: No cyanosis or clubbing. No pitting in the bilateral lower extremities. NEUROLOGIC: Grossly nonfocal. LABORATORY DATA: WBC 15.2, hemoglobin 11.3, platelets 163,000. Blood sugar ranges from 96-322. IMAGING: Cardiomegaly with bilateral vascular congestion and interstitial edema. No change compared to prior. Right subclavian central venous catheter is in decent position. ASSESSMENT: 1. Acute hypoxic respiratory failure, resolved. 2. Acute systolic heart failure. 3. Coronary artery disease, severe. 4. Coronary artery bypass graft, postop day #8. 5. Right-sided pleural effusion. DISCUSSION AND PLAN: The patient is doing fine from a respiratory standpoint. At this point, he has no further requirements for inpatient Pulmonary or Critical Care opinion. As such, I will sign off. Please call with additional questions or concerns moving forward.
[2017-08-17 11:58] VITALS: TEMP 98.2
[2017-08-17 13:23] VITALS: BP 119/60
--- NOTE | 2017-08-18 10:42 | PDOC.PN ---
- Subjective Encounter Start Date: 08/17/17 Encounter Start Time: 11:00 Patient is seen today, No eveidence of worseing Resiraotry distress noted, Pt is discharged by and plan to follow up as outpaitent gumaro. - Objective MAR Reviewed: Yes Vital Signs & Weight: Weight Weight 175 lb 6.4 oz Most Recent Monitor Data Heart Rate from ECG 77 NIBP 134/64 NIBP BP-Mean 99 Respiration from ECG 25 SpO2 94 I&O: 08/17/17 08/18/17 08/19/17 06:59 06:59 06:59 Intake Total 1812 Output Total 1425 Balance 387 Result Diagrams: 08/15/17 04:25 08/15/17 04:25 Additional Labs: Accuchecks 08/17/17 10:41 POC Glucose 184 H Radiology Reviewed by me: Yes Phys Exam - Physical Examination HEENT: PERRLA, moist MMs Neck: no nodes, no JVD Respiratory: no wheezing, no rales Cardiovascular: RRR, no significant murmur Gastrointestinal: soft, non-tender Musculoskeletal: no edema, pulses present Neurological: non-focal, normal sensation Psychiatric: normal affect, A&O x 3 Dx/Plan (1) CHF (congestive heart failure) Code(s): I50.9 - HEART FAILURE, UNSPECIFIED Status: Acute Qualifiers: Heart failure type: systolic Comment: continue furosemide , Will gumaro Monitor for any overload. low EF 20% , pt on Lifevest now. (2) NSTEMI (non-ST elevated myocardial infarction) Code(s): I21.4 - NON-ST ELEVATION (NSTEMI) MYOCARDIAL INFARCTION Status: Acute Comment: s/p CABG stbale, but developed Subcutaneous Emphesema not significant per Dr. Goodwin. (3) CAD (coronary artery disease) Code(s): I25.10 - ATHSCL HEART DISEASE OF [place] CORONARY ARTERY W/O ANG PCTRS Status: Chronic Comment: s/p CABG , Stable, no chest pain. (4) Cardiomyopathy Code(s): I42.9 - CARDIOMYOPATHY, UNSPECIFIED Status: Chronic Comment: On beta leonidas and ACEI (5) Subcutaneous emphysema associated with surgical procedure Code(s): T81.82XA - EMPHYSEMA (SUBCUTANEOUS) RESULTING FROM A PROCEDURE, INIT Status: Acute Qualifiers: Encounter type: initial encounter Qualified Code(s): T81.82XA - Emphysema ( subcutaneous) resulting from a procedure, initial encounter Comment: chest xray showed Subcutaneosu Emphesema, likely from Chest tube, will gumaro monitor no compromise of ventilation. Discussed with nurse to inform Dr. Goodwin, Will repeat chest xray tomorrow. - Plan cont current plan of care, respiratory therapy, incentive spirometry, DVT proph w/lovenox * . - Discharge Day Encounter end time: 11:35 Review of Systems - Review of Systems Eyes: negative: Pain, Vision Change, Conjunctivae Inflammation, Eyelid Inflammation, Redness, Other ENT: negative: Ear Pain, Ear Discharge, Nose Pain, Nose Discharge, Nose Congestion, Mouth Pain, Mouth Swelling, Throat Pain, Throat Swelling, Other Respiratory: negative: Cough, Dry, Shortness of Breath, Hemoptysis, SOB with Excertion, Pleuritic Pain, Sputum, Wheezing Cardiovascular: negative: chest pain, palpitations, orthopnea, paroxysmal nocturnal dyspnea, edema, light headedness, other Gastrointestinal: negative: Nausea, Vomiting, Abdominal Pain, Diarrhea, Constipation, Melena, Hematochezia, Other Genitourinary: negative: Dysuria, Frequency, Incontinence, Hematuria, Retention , Other Musculoskeletal: negative: Neck Pain, Shoulder Pain, Arm Pain, Back Pain, Hand Pain, Leg Pain, Foot Pain, Other - Medications/Allergies Allergies/Adverse Reactions: Allergies Allergy/AdvReac Type Severity Reaction Status Date / Time No Known Allergies Allergy Verified 08/07/17 04:49
== END 2017-08-17 14:05 | disposition home or self-care (01) | DRG 233 ==
LOC: ERS 01:42 → 2SW 03:48 → OBSVTOIN 08-08 11:27 → CCU 08-09 11:37 → 2NO 08-13 12:39
PROVIDERS: ADMIT Internal Medicine; ATTEND Internal Medicine
PROC: 02100Z9 Bypass Coronary Artery, One Artery from Left Internal Mammary, Open Approach (ICD-10-PCS; principal; 2017-08-09)
PROC: 4A023N7 Measurement of Cardiac Sampling and Pressure, Left Heart, Percutaneous Approach (ICD-10-PCS; 2017-08-09)
PROC: 0211093 Bypass Coronary Artery, Two Arteries from Coronary Artery with Autologous Venous Tissue, Open Approach (ICD-10-PCS; 2017-08-09)
PROC: 06BQ4ZZ Excision of Left Saphenous Vein, Percutaneous Endoscopic Approach (ICD-10-PCS; 2017-08-09)
PROC: 5A1221Z Performance of Cardiac Output, Continuous (ICD-10-PCS; 2017-08-09)
PROC: B2111ZZ Fluoroscopy of Multiple Coronary Arteries using Low Osmolar Contrast (ICD-10-PCS; 2017-08-09)
PROC: B2151ZZ Fluoroscopy of Left Heart using Low Osmolar Contrast (ICD-10-PCS; 2017-08-09)
PROC: 5A1945Z Respiratory Ventilation, 24-96 Consecutive Hours (ICD-10-PCS; 2017-08-09)
DX: I21.4 Non-ST elevation (NSTEMI) myocardial infarction (principal); I50.23 Acute on chronic systolic (congestive) heart failure; J96.01 Acute respiratory failure with hypoxia; I47.2 Ventricular tachycardia; J44.1 Chronic obstructive pulmonary disease with (acute) exacerbation; J90 Pleural effusion, not elsewhere classified; I25.10 Atherosclerotic heart disease of native coronary artery without angina pectoris; F17.210 Nicotine dependence, cigarettes, uncomplicated; E11.9 Type 2 diabetes mellitus without complications; E78.00 Pure hypercholesterolemia, unspecified; I25.5 Ischemic cardiomyopathy; T81.82XA Emphysema (subcutaneous) resulting from a procedure, initial encounter; Y83.2 Surgical operation with anastomosis, bypass or graft as the cause of abnormal reaction of the patient, or of later complication, without mention of misadventure at the time of the procedure
CPT/HCPCS: 36415; 36416; 36430; 71045; 71046; 76942; 78452; 80048; 80053; 80061; 82553; 82805; 83036; 83880; 84484; 85007; 85025; 85027; 85610; 85730; 86850; 86900; 86901; 93005; 93010; 93017; 93458; 93798; 94002; 94003; 94640; 94760; 96374; 99406; A4216; A9500; C1769; C9113; J0282; J0456; J0696; J1250; J1644; J1720; J1815; J1885; J1940; J2001; J2250; J2260; J2270; J2370; J2440; J2720; J2785; J2920; J2930; J3010; J3370; J3475; J3480; J7050; J7070; J7620; J7626; J7644; P9045; P9047; S0017

== ENCOUNTER 2017-09-01 11:11 | Emergency (ER) | payer MEDICARE ==
[2017-09-01 11:56] LABS: #Basophils 0.1 thou/uL (0.0-0.2); #Eosinphils 0.4 thou/uL (0.0-0.7); #Lymphocytes 1.8 thou/uL (1.20-3.40); #Monocytes 0.5 thou/uL (0.11-0.59); #Neutrophils 4.4 thou/uL (1.40-6.50); %Basophils 0.9 % (0.0-1.0); %Eosinophils 6.1 % (0.0-10.0); %Lymphocytes 24.4 % (21.0-51.0); %Monocytes 7.4 % (0.0-10.0); %Neutrophils 61.2 % (42.0-75.0); Hemoglobin 12.6 g/dL (14.0-18.0); Mean Corpuscular HGB CONC 33.1 g/dL (32.0-36.0); Mean Corpuscular Hemoglobin 31.3 pg (27.0-31.0); Mean Corpuscular Volume 94.5 fl (80.0-94.0); Mean Platelet Volume 7.7 fL (7.4-10.4); Platelet Count 178 thou/uL (130-400); RBC Distribution Width 13.2 % (11.5-14.5); Red Blood Cell (RBC) Count 4.03 mill/uL (4.70-6.10); White Blood Cell (WBC) Count 7.2 thou/uL (4.8-10.8)
--- NOTE | 2017-09-01 11:59 | RAD ---
PORTABLE CHEST: Date: 09/01/17 HISTORY: Dyspnea. Assess for pneumonia. COMPARISON: Prior exam of 08/16/17. FINDINGS: Cardiomegaly with postop sternotomy change. Mild vascular congestion. No focal infiltrate or consolid ation. No significant effusion apparent. IMPRESSION: Cardiomegaly and mild vascular congestion. I cannot exclude mild interstitial edema. No definite infi ltrate or consolidation seen on this portable projection. Upright PA and lateral views of chest would enable better evaluation. POS: [facility]
[2017-09-01 12:12] LABS: ALT (SGPT) 20 U/L (8-55); AST (SGOT) 22 U/L (5-34); Albumin 4.2 g/dL (3.4-4.8); Alkaline Phosphatase 75 U/L (40-150); Anion Gap 14 mmol/L (10-20); BUN (Urea Nitrogen) 25 mg/dL (8.4-25.7); Bilirubin, Total 0.5 mg/dL (0.2-1.2); CK (CPK) 36 U/L (30-200); Calc. Creatinine Clearance 0 mL/min (70-130); Calcium 9.3 mg/dL (7.8-10.44); Carbon Dioxide 28 mmol/L (23-31); Chloride 101 mmol/L (98-107); Estimated GFR-MDRD 59; Globulin 3.2 g/dL (2.4-3.5); Glucose 98 mg/dL (83-110); Potassium 4.7 mmol/L (3.5-5.1); Protein, Total 7.4 g/dL (5.8-8.1); Sodium 138 mmol/L (136-145)
[2017-09-01 12:25] LABS: CKMB 1.4 ng/mL (0-6.6); Troponin I 0.024 ng/mL (< 0.028)
[2017-09-01] MEDS ORDERED: Furosemide 40 MG TAB ONE (13:39)
== END 2017-09-01 13:45 | disposition home or self-care (01) ==
LOC: ERS 11:11
DX: I50.9 Heart failure, unspecified (principal); R05 Cough; I25.10 Atherosclerotic heart disease of native coronary artery without angina pectoris; J45.909 Unspecified asthma, uncomplicated; F17.210 Nicotine dependence, cigarettes, uncomplicated
CPT/HCPCS: 36415; 71045; 80053; 82553; 83880; 84484; 85025; 87040; 99214; G0463

== ENCOUNTER 2017-11-29 13:39 | Outpatient (CLI) | payer MEDICAID, MEDICARE ==
--- NOTE | 2017-11-29 14:37 | RAD ---
CHEST TWO VIEWS: HISTORY: Dyspnea. COMPARISON: None. FINDINGS: There are sternotomy wires. Normal cardiac silhouette. Pulmonary vessels and hilum are normal. Cos tophrenic angles are clear. Hyperinflation with chronic changes. No consolidation or mass. No pneu mothorax or osseous abnormalities. IMPRESSION: No acute cardiopulmonary process. POS: [facility]
== END 2017-11-29 13:40 | disposition home or self-care (01) ==
LOC: RAD 13:39
PROVIDERS: ATTEND Internal Medicine Pulmonary Disease
DX: R06.00 Dyspnea, unspecified (principal)
CPT/HCPCS: 71046

== ENCOUNTER 2017-12-26 12:37 | Outpatient (CLI) | payer MEDICARE ==
--- NOTE | 2017-12-28 10:56 | PFT ---
PATIENT HISTORY: HEIGHT: 65 IN WEIGHT: 180 SMOKER: NO HOW LON YRS PACKS PER DAY :1 PRODUCTIVE COUGH: LUNG DISEASE: PHYSICIAN INTERPRETATION FINAL REPORT: Asset Manager comments: Patient had fair effort and cooperation. A language barrier existed. Only spirometry values could be obtained. There were Multiple attempts at obtaining lung volumes and DLCO, but they were not successful because the patient could not follow the directions required to generate good data. FVC 2.56 (67%), FVC 11.39 (48%), FEV1/FVC 0.72. There is a reduction to both the FEV1 and the FVC. The ratio is consistent with obstructive airflow limitation. This is confirmed on the expiratory limb of the flow volume loop, which is consistent with an obstructive airflow limitation. Inspiratory limb is perfectly normal. IMPRESSION: Overall, these pulmonary function studies are with moderately severe obstructive lung disease with no significant with improvement following administration of bronchodilator. Asset Manager: SALBADOR Planning Supervisor: SALBADOR RODRIGUES
== END 2017-12-26 12:38 | disposition home or self-care (01) ==
LOC: CP 12:37
PROVIDERS: ATTEND Internal Medicine
DX: J44.9 Chronic obstructive pulmonary disease, unspecified (principal); G47.33 Obstructive sleep apnea (adult) (pediatric)
CPT/HCPCS: 94060

== ENCOUNTER 2017-12-28 10:47 | Outpatient (CLI) | payer MEDICARE, MEDICAID ==
[2017-12-28 12:23] LABS: #Basophils 0.1 thou/uL (0.0-0.2); #Eosinphils 0.1 thou/uL (0.0-0.7); #Lymphocytes 1.5 thou/uL (1.20-3.40); #Monocytes 0.7 thou/uL (0.11-0.59); #Neutrophils 5.5 thou/uL (1.40-6.50); %Basophils 0.7 % (0.0-1.0); %Eosinophils 1.5 % (0.0-10.0); %Monocytes 8.5 % (0.0-10.0); %Neutrophils 70.4 % (42.0-75.0); Hemoglobin 14.1 g/dL (14.0-18.0); Mean Corpuscular HGB CONC 34.1 g/dL (32.0-36.0); Mean Corpuscular Hemoglobin 31.1 pg (27.0-31.0); Mean Corpuscular Volume 91.1 fL (78.0-98.0); Mean Platelet Volume 7.8 fL (7.4-10.4); Platelet Count 125 thou/uL (130-400); RBC Distribution Width 13.2 % (11.5-14.5); Red Blood Cell (RBC) Count 4.53 mill/uL (4.70-6.10); White Blood Cell (WBC) Count 7.8 thou/uL (4.8-10.8)
[2017-12-28 12:25] LABS: INR-International Normal Ratio 1.1; Prothrombin Time 13.8 SEC (12.0-14.7)
[2017-12-28 12:26] LABS: PTT 32.4 SEC (22.9-36.1)
[2017-12-28 12:31] LABS: Anion Gap 13 mmol/L (10-20); BUN (Urea Nitrogen) 22 mg/dL (8.4-25.7); Calc. Creatinine Clearance 0 mL/min (70-130); Calcium 9.7 mg/dL (7.8-10.44); Carbon Dioxide 25 mmol/L (23-31); Chloride 105 mmol/L (98-107); Estimated GFR-MDRD 59; Glucose 105 mg/dL (83-110); Potassium 4.5 mmol/L (3.5-5.1); Sodium 138 mmol/L (136-145)
--- NOTE | 2017-12-28 17:13 | EKG ---
Test Reason : Blood Pressure : / mmHG Vent. Rate : 051 BPM Atrial Rate : 051 BPM P-R Int : 192 ms QRS Dur : 132 ms QT Int : 482 ms P-R-T Axes : -24 064 256 degrees QTc Int : 444 ms Sinus bradycardia Non-specific intra-ventricular conduction block T wave abnormality, consider inferolateral ischemia Abnormal ECG Confirmed by RAMSES ROJAS ([id number]) on 12/28/2017 5:12:55 PM Referred By: JEREMIAS Confirmed By:RAMSES ROJAS
== END 2017-12-28 10:48 | disposition home or self-care (01) ==
LOC: LABBT 10:47
PROVIDERS: ATTEND Internal Medicine Cardiovascular Disease
DX: Z01.818 Encounter for other preprocedural examination (principal); I50.9 Heart failure, unspecified
CPT/HCPCS: 80048; 85025; 85610; 85730; 93005; 93010

== ENCOUNTER 2017-12-29 06:09 | Day surgery (SDC) | payer MEDICARE, MEDICAID ==
[2017-12-28 11:13] VITALS: BMI 30.7
[2017-12-29] MEDS ORDERED: CEFAZOLIN/Water 2 GM/20 ML SYRINGE ONE (08:13)
[2017-12-29] MEDS ORDERED: Ketamine 50 MG/ML VIAL ONE (08:48)
[2017-12-29] MEDS ORDERED: Midazolam HCl 5 mg/5 ml Vial ONE (08:48)
[2017-12-29] MEDS ORDERED: Iopamidol 370 76% 50 ML VIAL FS ONE (10:06)
[2017-12-29] MEDS ORDERED: Lidocaine 1% (PF) 30 ML VIAL ONE ×2 (10:42→10:45)
--- NOTE | 2017-12-29 15:17 | RAD ---
CHEST 1 VIEW: HISTORY: Pacemaker placement. COMPARISON: 09/01/17. FINDINGS: Cardiac silhouette is magnified and enlarged. Pulmonary vasculature remains engorged. Mediastinum m idline with postoperative changes. Multilead left subclavian cardiac electronic device is now in dianne ce with leads overlying the cardiac silhouette. No evidence of pneumothorax. IMPRESSION: 1. Interval placement of 3-lead left subclavian cardiac electronic device, in good radiographic posi tion. No evidence of complication. 2. Radiographic findings of chronic congestive heart failure are stable. POS: [facility]
== END 2017-12-29 14:35 | disposition home or self-care (01) ==
LOC: CCL 06:09
PROVIDERS: ATTEND Internal Medicine Cardiovascular Disease
PROC: 0JH608Z Insertion of Defibrillator Generator into Chest Subcutaneous Tissue and Fascia, Open Approach (ICD-10-PCS; principal; 2017-12-29)
PROC: 02H63KZ Insertion of Defibrillator Lead into Right Atrium, Percutaneous Approach (ICD-10-PCS; 2017-12-29)
PROC: 02HK3KZ Insertion of Defibrillator Lead into Right Ventricle, Percutaneous Approach (ICD-10-PCS; 2017-12-29)
DX: I11.0 Hypertensive heart disease with heart failure (principal); I50.22 Chronic systolic (congestive) heart failure; I25.5 Ischemic cardiomyopathy; I25.10 Atherosclerotic heart disease of native coronary artery without angina pectoris; I44.7 Left bundle-branch block, unspecified; I25.2 Old myocardial infarction; J44.9 Chronic obstructive pulmonary disease, unspecified; Z79.82 Long term (current) use of aspirin; Z79.899 Other long term (current) drug therapy; Z95.1 Presence of aortocoronary bypass graft
CPT/HCPCS: 33225; 33230; 36005; 71045; 75820; 80048; 85025; 85610; 85730; 93005; 93641; 93798 ×3; C1769; C1777; C1882; C1898; C1900; J2001; J2250; J3490

== ENCOUNTER 2018-02-02 19:30 | Outpatient (CLI) | payer MEDICARE | END 2018-02-02 19:31 | disposition home or self-care (01) | LOC: SLEEPLAB 19:30 | PROVIDERS: ATTEND Internal Medicine | DX: G47.33 Obstructive sleep apnea (adult) (pediatric) (principal); R51 Headache; R06.83 Snoring; E66.9 Obesity, unspecified; R35.1 Nocturia; I11.0 Hypertensive heart disease with heart failure; I50.9 Heart failure, unspecified; I48.91 Unspecified atrial fibrillation; Z68.33 Body mass index [BMI] 33.0-33.9, adult | CPT/HCPCS: 95810 ==

== ENCOUNTER 2018-02-09 19:30 | Outpatient (CLI) | payer MEDICARE, MEDICAID | END 2018-02-09 19:31 | disposition home or self-care (01) | LOC: SLEEPLAB 19:30 | PROVIDERS: ATTEND Internal Medicine | DX: G47.33 Obstructive sleep apnea (adult) (pediatric) (principal); I11.0 Hypertensive heart disease with heart failure; I50.9 Heart failure, unspecified; R35.1 Nocturia; R06.83 Snoring; E66.9 Obesity, unspecified; Z68.33 Body mass index [BMI] 33.0-33.9, adult; R51 Headache | CPT/HCPCS: 95811 ==

== ENCOUNTER 2018-02-19 15:06 | Outpatient (CLI) | payer MEDICARE, MEDICAID ==
--- NOTE | 2018-02-19 16:56 | RAD ---
CHEST 2 VIEWS: Date: 02/19/18 HISTORY: COPD. Pacer. COMPARISON: 08/15/17. FINDINGS: A new dual lead cardiac pacer is present. Lungs are otherwise clear. No pneumothorax or effusion. IMPRESSION: Uncomplicated placement of dual lead pacer. POS: [facility]
== END 2018-02-19 15:07 | disposition home or self-care (01) ==
LOC: RAD-FRANK 15:06
PROVIDERS: ATTEND Nurse Practitioner Family
DX: J44.1 Chronic obstructive pulmonary disease with (acute) exacerbation (principal); Z95.0 Presence of cardiac pacemaker
CPT/HCPCS: 71046

== ENCOUNTER 2019-04-04 09:34 | Outpatient (CLI) | payer MEDICARE, MEDICAID ==
--- NOTE | 2019-04-04 10:46 | ULT ---
Left inguinal soft tissue ultrasound Indication multiple enlarged lymph nodes within the left inguinal region TECHNIQUE: Grayscale and color Doppler images were obtained of the region of interest in the left ing uinal region. FINDINGS: There is a 0.7 cm lymph node within the left inguinal region. There is a 1.3 x 0.7 cm lymph node within left inguinal region. There is an additional 1.0 x 0.5 cm lymph node within left inguinal region. There is a 1.0 cm lymph node within the left inguinal region. IMPRESSION: Multiple mildly prominent lymph nodes within the left inguinal region.
== END 2019-04-04 09:35 | disposition home or self-care (01) ==
LOC: BICULT 09:34
PROVIDERS: ATTEND Nurse Practitioner Family
DX: R59.0 Localized enlarged lymph nodes (principal)
CPT/HCPCS: 76999

== ENCOUNTER 2019-05-16 09:17 | Outpatient (CLI) | payer MEDICARE, MEDICAID ==
--- NOTE | 2019-05-16 09:48 | RAD ---
EXAM: 3 views of the lumbosacral spine HISTORY: Low back pain COMPARISON: None FINDINGS: 3 views of the lumbosacral spine shows normal height and alignment of the vertebral bodies without fracture or subluxation. Intervertebral disc space narrowing is seen throughout the lumbar spine with moderate osteophytes throughout the lumbar spine. There may be fusion of the left sacroiliac joint.. Vascular calcifications are seen in the aorta. IMPRESSION: Degenerative changes of the lumbar spine without acute osseous abnormality.
== END 2019-05-16 09:18 | disposition home or self-care (01) ==
LOC: RAD-FRANK 09:17
PROVIDERS: ATTEND Nurse Practitioner Family
DX: M54.5 Low back pain (principal); M47.816 Spondylosis without myelopathy or radiculopathy, lumbar region
CPT/HCPCS: 72100

== ENCOUNTER 2019-05-20 14:27 | Outpatient (CLI) | payer MEDICARE, MEDICAID ==
--- NOTE | 2019-05-20 15:10 | ULT ---
VENOUS DUPLEX SONOGRAM LEFT LOWER EXTREMITY: HISTORY: Left leg pain and edema. FINDINGS: The left common femoral vein and greater saphenous junction are evaluated along with the femoral, marla p femoral, popliteal, and posterior tibial veins. There is good color and spectral Doppler flow, com pression, and augmentation. IMPRESSION: Normal exam. POS: [facility]
== END 2019-05-20 14:28 | disposition home or self-care (01) ==
LOC: ULT 14:27
PROVIDERS: ATTEND Nurse Practitioner Family
DX: M79.605 Pain in left leg (principal); R60.0 Localized edema

== ENCOUNTER 2020-07-07 09:11 | Outpatient (CLI) | payer MEDICARE, MEDICAID | END 2020-07-07 09:12 | disposition home or self-care (01) | LOC: BICRAD 09:11 | PROVIDERS: ATTEND Nurse Practitioner Family | DX: I50.22 Chronic systolic (congestive) heart failure (principal) | CPT/HCPCS: 71046 ==

== ENCOUNTER 2021-08-03 14:36 | Outpatient (CLI) | payer MEDICARE, MEDICAID | END 2021-08-03 14:37 | disposition home or self-care (01) | LOC: BICCT 14:36 | PROVIDERS: ATTEND Nurse Practitioner Family | DX: Z12.2 Encounter for screening for malignant neoplasm of respiratory organs (principal); J44.1 Chronic obstructive pulmonary disease with (acute) exacerbation; Z87.891 Personal history of nicotine dependence | CPT/HCPCS: 71271 ==

== ENCOUNTER 2021-09-14 08:02 | Outpatient (CLI) | payer MEDICARE, MEDICAID | END 2021-09-14 08:03 | disposition home or self-care (01) | LOC: RAD 08:02 | PROVIDERS: ATTEND Internal Medicine Critical Care Medicine | DX: R06.00 Dyspnea, unspecified (principal); I51.7 Cardiomegaly | CPT/HCPCS: 71046 ==

== ENCOUNTER 2021-11-13 19:07 | Inpatient (IN) | payer MEDICARE, MEDICAID ==
[2021-11-13 20:01] LABS: #Lymphocytes 0.7 thou/uL (1.20-3.40); #Monocytes 0.4 thou/uL (0.11-0.59); %Basophils 0.3 % (0.0-1.0); %Eosinophils 0.6 % (0.0-10.0); %Lymphocytes 13.5 % (21.0-51.0); %Monocytes 7.9 % (0.0-10.0); %Neutrophils 77.7 % (42.0-75.0); Hemoglobin 16.5 g/dL (14.0-18.0); Mean Corpuscular HGB CONC 33.3 g/dL (32.0-36.0); Mean Corpuscular Hemoglobin 33.1 pg (27.0-31.0); Mean Corpuscular Volume 99.3 fL (78.0-98.0); Mean Platelet Volume 9.4 fL (7.4-10.4); Platelet Count 62 thou/uL (130-400); RBC Distribution Width 12.2 % (11.5-14.5); White Blood Cell (WBC) Count 5.1 thou/uL (4.8-10.8)
[2021-11-13 20:15] LABS: ALT (SGPT) 68 U/L (8-55); AST (SGOT) 43 U/L (5-34); Albumin 3.9 g/dL (3.4-4.8); Alkaline Phosphatase 45 U/L (40-110); Anion Gap 17 mmol/L (10-20); BUN (Urea Nitrogen) 39 mg/dL (8.4-25.7); Bilirubin, Total 0.9 mg/dL (0.2-1.2); Calc. Creatinine Clearance 0 mL/min (70-130); Calcium 9.1 mg/dL (7.8-10.44); Carbon Dioxide 31 mmol/L (23-31); Chloride 97 mmol/L (98-107); Estimated GFR 40; Globulin 3.6 g/dL (2.4-3.5); Glucose 167 mg/dL (83-110); Lipase 58 U/L (8-78); Potassium 3.9 mmol/L (3.5-5.1); Protein, Total 7.5 g/dL (5.8-8.1); Sodium 141 mmol/L (136-145)
[2021-11-13] MEDS ORDERED: cefTRIAXone\\ROCEPHIN 1 GM VIAL ONE (20:23)
[2021-11-13] MEDS ORDERED: methylPREDNISolone Sod Succ/PF 125 MG/2 ML VIAL ONE (20:27)
[2021-11-13] MEDS ORDERED: Azithromycin 500 MG VIAL ONE (21:03)
[2021-11-13 21:16] LABS: Bilirubin Negative (Negative); Blood, Urine Negative (Negative); Clarity Clear (Clear); Glucose, Urine (Dipstick) Normal (Negative); Ketone, Urine Negative (Negative); Leukocyte Negative Leu/uL (Negative); Nitrite Negative (Negative); Protein, Urine (Dipstick) Negative (Neg-Trace); Specific Gravity, Urine 1.015 (1.002-1.036); Urobilinogen Normal mg/dL (Less than 2)
[2021-11-13 21:21] LABS: CKMB 0.8 ng/mL (0-6.6)
[2021-11-13 22:14] LABS: SARS-CoV-2 NAA Rapid Test DETECTED (NotDetected)
[2021-11-13] MEDS ORDERED: Acetaminophen 650 MG Suppository PR PRN ×2 (23:40)
[2021-11-13] MEDS ORDERED: Ondansetron PF 4 MG/2 ML Vial IVP PRN (23:40)
[2021-11-13] MEDS ORDERED: Acetaminophen 325 MG TAB PO PRN (23:40)
[2021-11-13] MEDS ORDERED: Ondansetron ODT 4 MG TAB PO PRN (23:40)
[2021-11-14] MEDS ORDERED: Dextrose 5% in Water 1,000 ML IV PRN (00:20)
[2021-11-14] MEDS ORDERED: Dextrose 50% Abboject 50 ML SYRINGE SLOW IVP PRN (00:20)
[2021-11-14 04:50] LABS: #Lymphocytes 0.5 thou/uL (1.20-3.40); #Monocytes 0.1 thou/uL (0.11-0.59); #Neutrophils 2.9 thou/uL (1.40-6.50); %Eosinophils 0.1 % (0.0-10.0); %Lymphocytes 13.5 % (21.0-51.0); %Monocytes 1.9 % (0.0-10.0); %Neutrophils 84.5 % (42.0-75.0); Mean Corpuscular Hemoglobin 33.1 pg (27.0-31.0); Mean Platelet Volume 8.9 fL (7.4-10.4); Platelet Count 57 thou/uL (130-400); RBC Distribution Width 12.2 % (11.5-14.5); Red Blood Cell (RBC) Count 4.83 mill/uL (4.70-6.10); White Blood Cell (WBC) Count 3.5 thou/uL (4.8-10.8)
[2021-11-14 05:02] LABS: Anion Gap 14 mmol/L (10-20); BUN (Urea Nitrogen) 29 mg/dL (8.4-25.7); Calc. Creatinine Clearance 0 mL/min (70-130); Calcium 8.7 mg/dL (7.8-10.44); Chloride 104 mmol/L (98-107); Estimated GFR 60; Glucose 231 mg/dL (83-110); Potassium 4.5 mmol/L (3.5-5.1); Sodium 141 mmol/L (136-145)
[2021-11-14 05:28] LABS: Actual Bicarbonate (HCO3a) 25.8 mEq/L (22-28); Base Excess (BEa) -1.4 mEq/L (-2.0 to +3.0); CO2 Tension 52.8 mmHg (35.0-45.0); Calcium, Ionized (arterial) 1.19 mmol/L (1.12-1.30); Carboxyhemoglobin (COHb) 0.8 gm% (0.0-3.0); Hemoglobin (Hb) 16.1 g/dL (14.0-18.0); O2 Tension (PaO2), arterial 92.3 mmHg (> 70.0); Potassium - ABG Lab 4.34 mmol/L (3.70-5.30); pH, Arterial 7.31 (7.35-7.45)
[2021-11-14 05:30] LABS: Puncture Site LRA
[2021-11-14 05:41] LABS: Carbon Dioxide 28 mmol/L (23-31)
[2021-11-14] MEDS: HumaLOG 300 UNITS/3 ML VIAL SC PRN ×2 (06:10→21:38)
[2021-11-14] MEDS ORDERED: REMDESIVIR 200 MG in Sodium Chloride 0.9% 250 ML 210 ML IV SCH (09:00)
[2021-11-14] MEDS ORDERED: Enoxaparin Sodium 40 MG/0.4 ML SYRINGE SC SCH (09:00)
[2021-11-14] MEDS: Cholecalciferol (Vitamin D3) 400 UNITS TAB PO SCH (09:54)
[2021-11-14] MEDS: Dexamethasone 10 MG/ML VIAL SLOW IVP SCH (09:54)
[2021-11-14] MEDS: Ascorbic Acid 500 mg Chewable Tablet PO SCH (09:54)
[2021-11-14] MEDS: Pantoprazole 40 MG VIAL IVP SCH (09:55)
[2021-11-14] MEDS: Zinc Sulfate 220 MG CAP PO SCH (09:55)
[2021-11-14] MEDS ORDERED: Furosemide 40 MG/4 ML VIAL SLOW IVP SCH (11:15)
[2021-11-14] MEDS: Mometasone 100 MCG/Formoterol 5 MCG 120 PUFF INHALER INH SCH (19:36)
[2021-11-15 04:37] LABS: #Lymphocytes 0.7 thou/uL (1.20-3.40); #Monocytes 0.7 thou/uL (0.11-0.59); #Neutrophils 7.2 thou/uL (1.40-6.50); %Basophils 0.5 % (0.0-1.0); %Eosinophils 0.1 % (0.0-10.0); %Lymphocytes 7.8 % (21.0-51.0); %Monocytes 7.8 % (0.0-10.0); %Neutrophils 83.8 % (42.0-75.0); Hemoglobin 16.1 g/dL (14.0-18.0); Mean Corpuscular HGB CONC 32.9 g/dL (32.0-36.0); Mean Corpuscular Hemoglobin 33.2 pg (27.0-31.0); Mean Platelet Volume 9.4 fL (7.4-10.4); Platelet Count 66 thou/uL (130-400); RBC Distribution Width 12.1 % (11.5-14.5); Red Blood Cell (RBC) Count 4.84 mill/uL (4.70-6.10); White Blood Cell (WBC) Count 8.6 thou/uL (4.8-10.8)
[2021-11-15 04:53] LABS: ALT (SGPT) 50 U/L (8-55); AST (SGOT) 27 U/L (5-34); Albumin 3.6 g/dL (3.4-4.8); Alkaline Phosphatase 40 U/L (40-110); Anion Gap 13 mmol/L (10-20); BUN (Urea Nitrogen) 22 mg/dL (8.4-25.7); Bilirubin, Total 0.4 mg/dL (0.2-1.2); Calc. Creatinine Clearance 84 mL/min (70-130); Calcium 8.9 mg/dL (7.8-10.44); Carbon Dioxide 29 mmol/L (23-31); Chloride 104 mmol/L (98-107); Estimated GFR 75; Globulin 3.1 g/dL (2.4-3.5); Glucose 211 mg/dL (83-110); Magnesium 1.9 mg/dL (1.6-2.6); Potassium 4.3 mmol/L (3.5-5.1); Protein, Total 6.7 g/dL (5.8-8.1); Sodium 142 mmol/L (136-145)
[2021-11-15 05:41] VITALS: BMI 34.1
[2021-11-15] MEDS: HumaLOG 300 UNITS/3 ML VIAL SC PRN ×3 (06:31→23:07)
[2021-11-15] MEDS: Dexamethasone 10 MG/ML VIAL SLOW IVP SCH (07:40)
[2021-11-15] MEDS: Ascorbic Acid 500 mg Chewable Tablet PO SCH (07:40)
[2021-11-15] MEDS: Cholecalciferol (Vitamin D3) 400 UNITS TAB PO SCH (07:41)
[2021-11-15] MEDS: Zinc Sulfate 220 MG CAP PO SCH (07:41)
[2021-11-15] MEDS: REMDESIVIR 100 MG in Sodium Chloride 0.9% 250 ML 230 ML IV SCH (08:33)
[2021-11-15] MEDS: Pantoprazole 40 MG VIAL IVP SCH (10:26)
[2021-11-15] MEDS: Mometasone 100 MCG/Formoterol 5 MCG 120 PUFF INHALER INH SCH ×3 (10:40→17:55)
[2021-11-15] MEDS ORDERED: Furosemide 20 MG TAB PO SCH (10:45)
[2021-11-15] MEDS: Furosemide 20 MG TAB PO SCH (13:14)
[2021-11-15] MEDS: Benzonatate 100 MG CAP PO PRN (20:59)
[2021-11-16] MEDS: Benzonatate 100 MG CAP PO PRN ×2 (02:20→20:09)
[2021-11-16] MEDS: Mometasone 100 MCG/Formoterol 5 MCG 120 PUFF INHALER INH SCH ×2 (05:41→18:13)
[2021-11-16] MEDS: Zinc Sulfate 220 MG CAP PO SCH (09:01)
[2021-11-16] MEDS: Furosemide 20 MG TAB PO SCH ×2 (09:01→14:36)
[2021-11-16] MEDS: Ascorbic Acid 500 mg Chewable Tablet PO SCH ×2 (09:01→09:02)
[2021-11-16] MEDS: Dexamethasone 10 MG/ML VIAL SLOW IVP SCH (09:02)
[2021-11-16] MEDS: Pantoprazole 40 MG VIAL IVP SCH (09:02)
[2021-11-16] MEDS: Cholecalciferol (Vitamin D3) 400 UNITS TAB PO SCH (09:02)
[2021-11-16] MEDS: REMDESIVIR 100 MG in Sodium Chloride 0.9% 250 ML 230 ML IV SCH (09:02)
[2021-11-16] MEDS: HumaLOG 300 UNITS/3 ML VIAL SC PRN ×3 (13:13→21:26)
[2021-11-16] MEDS: Senokot S 8.6-50 MG TAB PO SCH ×2 (13:15→20:09)
[2021-11-16] MEDS ORDERED: Albuterol 200 PUFF (6.7GM INHALER) INH PRN (13:19)
[2021-11-16] MEDS: Albuterol 200 PUFF (6.7GM INHALER) INH SCH ×3 (14:35→21:25)
[2021-11-16] MEDS ORDERED: Electrolyte Replacement Protocol 1 EACH FS SCH (19:30)
[2021-11-16] MEDS: Carvedilol 6.25 MG TAB PO SCH (20:09)
[2021-11-16] MEDS: Tamsulosin HCl 0.4 MG CAP PO SCH (20:09)
[2021-11-16] MEDS: Folic Acid 1 MG TAB PO SCH (20:09)
[2021-11-16] MEDS: guaiFENesin ER 600 MG TAB PO SCH (20:09)
[2021-11-16] MEDS: Multivit, Therapeutic 1 TAB PO SCH (20:09)
[2021-11-16] MEDS ORDERED: Polyethylene Glycol 3350 17 GM Packet PO SCH (21:00)
[2021-11-17] MEDS: Albuterol 200 PUFF (6.7GM INHALER) INH SCH ×6 (05:21→22:17)
[2021-11-17] MEDS: Mometasone 100 MCG/Formoterol 5 MCG 120 PUFF INHALER INH SCH ×2 (05:32→18:11)
[2021-11-17 06:55] LABS: #Monocytes 0.6 thou/uL (0.11-0.59); #Neutrophils 5.3 thou/uL (1.40-6.50); %Basophils 0.4 % (0.0-1.0); %Eosinophils 0.2 % (0.0-10.0); %Lymphocytes 14.8 % (21.0-51.0); %Monocytes 8.8 % (0.0-10.0); %Neutrophils 75.9 % (42.0-75.0); Hemoglobin 15.8 g/dL (14.0-18.0); Mean Corpuscular HGB CONC 32.3 g/dL (32.0-36.0); Mean Corpuscular Hemoglobin 32.1 pg (27.0-31.0); Mean Corpuscular Volume 99.5 fL (78.0-98.0); Mean Platelet Volume 9.1 fL (7.4-10.4); Platelet Count 80 thou/uL (130-400); RBC Distribution Width 12.1 % (11.5-14.5); Red Blood Cell (RBC) Count 4.93 mill/uL (4.70-6.10)
[2021-11-17 06:58] LABS: ALT (SGPT) 45 U/L (8-55); AST (SGOT) 28 U/L (5-34); Albumin 3.5 g/dL (3.4-4.8); Alkaline Phosphatase 43 U/L (40-110); Anion Gap 15 mmol/L (10-20); BUN (Urea Nitrogen) 17 mg/dL (8.4-25.7); Calc. Creatinine Clearance 110 mL/min (70-130); Carbon Dioxide 26 mmol/L (23-31); Chloride 103 mmol/L (98-107); Estimated GFR 93; Globulin 3.1 g/dL (2.4-3.5); Glucose 145 mg/dL (83-110); Magnesium 1.9 mg/dL (1.6-2.6); Phosphorus 2.3 mg/dL (2.3-4.7); Potassium 3.9 mmol/L (3.5-5.1); Protein, Total 6.6 g/dL (5.8-8.1); Sodium 140 mmol/L (136-145)
[2021-11-17] MEDS ORDERED: Magnesium 2 GM/50 ML(in water) 2 GM in Premix Bag 1 BAG IVPB SCH (08:00)
[2021-11-17] MEDS: REMDESIVIR 100 MG in Sodium Chloride 0.9% 250 ML 230 ML IV SCH (09:30)
[2021-11-17] MEDS: Dexamethasone 10 MG/ML VIAL SLOW IVP SCH (09:30)
[2021-11-17] MEDS: Aspirin 81 mg Enteric Coated Tablet PO SCH (09:31)
[2021-11-17] MEDS: pyridOXINE 50 MG (B6) TAB PO SCH (09:31)
[2021-11-17] MEDS: Cyanocobalamin (Vitamin B-12) 1,000 MCG TAB PO SCH (09:31)
[2021-11-17] MEDS: Senokot S 8.6-50 MG TAB PO SCH ×2 (09:31→20:06)
[2021-11-17] MEDS: Furosemide 20 MG TAB PO SCH ×2 (09:32→13:34)
[2021-11-17] MEDS: Carvedilol 6.25 MG TAB PO SCH ×2 (09:32→20:06)
[2021-11-17] MEDS: Zinc Sulfate 220 MG CAP PO SCH (09:35)
[2021-11-17] MEDS: guaiFENesin ER 600 MG TAB PO SCH ×2 (09:35→20:06)
[2021-11-17] MEDS: Cholecalciferol (Vitamin D3) 400 UNITS TAB PO SCH (09:36)
[2021-11-17] MEDS: Ascorbic Acid 500 mg Chewable Tablet PO SCH (09:36)
[2021-11-17] MEDS: HumaLOG 300 UNITS/3 ML VIAL SC PRN ×2 (13:30→18:22)
[2021-11-17] MEDS: Tamsulosin HCl 0.4 MG CAP PO SCH (20:05)
[2021-11-17] MEDS: Multivit, Therapeutic 1 TAB PO SCH (20:06)
[2021-11-17] MEDS: Polyethylene Glycol 3350 17 GM Packet PO SCH (20:06)
[2021-11-17] MEDS: Folic Acid 1 MG TAB PO SCH (20:06)
[2021-11-17] MEDS: Benzonatate 100 MG CAP PO PRN (20:06)
[2021-11-17] MEDS: Cholecalciferol 1,000 UNITS (25 MCG) TAB PO SCH (20:06)
[2021-11-18] MEDS: Albuterol 200 PUFF (6.7GM INHALER) INH SCH ×6 (02:44→22:32)
[2021-11-18] MEDS: Mometasone 100 MCG/Formoterol 5 MCG 120 PUFF INHALER INH SCH ×2 (06:00→18:49)
[2021-11-18 06:11] LABS: #Eosinphils 0.1 thou/uL (0.0-0.7); #Lymphocytes 1.1 thou/uL (1.20-3.40); #Monocytes 0.6 thou/uL (0.11-0.59); %Basophils 0.2 % (0.0-1.0); %Eosinophils 1.1 % (0.0-10.0); %Monocytes 7.3 % (0.0-10.0); %Neutrophils 77.4 % (42.0-75.0); Hemoglobin 16.5 g/dL (14.0-18.0); Mean Corpuscular HGB CONC 32.7 g/dL (32.0-36.0); Mean Corpuscular Hemoglobin 32.3 pg (27.0-31.0); Mean Corpuscular Volume 98.9 fL (78.0-98.0); Mean Platelet Volume 8.5 fL (7.4-10.4); Platelet Count 102 thou/uL (130-400); RBC Distribution Width 12.1 % (11.5-14.5); Red Blood Cell (RBC) Count 5.11 mill/uL (4.70-6.10); White Blood Cell (WBC) Count 7.7 thou/uL (4.8-10.8)
[2021-11-18 06:33] LABS: ALT (SGPT) 69 U/L (8-55); AST (SGOT) 50 U/L (5-34); Albumin 3.5 g/dL (3.4-4.8); Alkaline Phosphatase 46 U/L (40-110); Anion Gap 14 mmol/L (10-20); BUN (Urea Nitrogen) 19 mg/dL (8.4-25.7); Bilirubin, Total 1.5 mg/dL (0.2-1.2); Calc. Creatinine Clearance 107 mL/min (70-130); Carbon Dioxide 32 mmol/L (23-31); Chloride 100 mmol/L (98-107); Estimated GFR 92; Glucose 152 mg/dL (83-110); Potassium 3.5 mmol/L (3.5-5.1); Protein, Total 6.5 g/dL (5.8-8.1); Sodium 142 mmol/L (136-145)
[2021-11-18] MEDS: REMDESIVIR 100 MG in Sodium Chloride 0.9% 250 ML 230 ML IV SCH (09:35)
[2021-11-18] MEDS: Furosemide 20 MG TAB PO SCH ×2 (09:36→13:16)
[2021-11-18] MEDS: Polyethylene Glycol 3350 17 GM Packet PO SCH ×2 (09:36→20:38)
[2021-11-18] MEDS: Dexamethasone 10 MG/ML VIAL SLOW IVP SCH (09:36)
[2021-11-18] MEDS: Cyanocobalamin (Vitamin B-12) 1,000 MCG TAB PO SCH (09:37)
[2021-11-18] MEDS: Carvedilol 6.25 MG TAB PO SCH ×2 (09:38→20:38)
[2021-11-18] MEDS: Zinc Sulfate 220 MG CAP PO SCH (09:39)
[2021-11-18] MEDS: pyridOXINE 50 MG (B6) TAB PO SCH (09:39)
[2021-11-18] MEDS: Ascorbic Acid 500 mg Chewable Tablet PO SCH (09:39)
[2021-11-18] MEDS: Aspirin 81 mg Enteric Coated Tablet PO SCH (09:39)
[2021-11-18] MEDS: Senokot S 8.6-50 MG TAB PO SCH ×2 (09:39→20:39)
[2021-11-18] MEDS: guaiFENesin ER 600 MG TAB PO SCH ×2 (09:39→20:39)
[2021-11-18] MEDS ORDERED: Potassium Chloride 20 MEQ TAB PO SCH (12:00)
[2021-11-18] MEDS: HumaLOG 300 UNITS/3 ML VIAL SC PRN ×2 (13:16→18:48)
[2021-11-18] MEDS: Cholecalciferol 1,000 UNITS (25 MCG) TAB PO SCH (20:38)
[2021-11-18] MEDS: Folic Acid 1 MG TAB PO SCH (20:38)
[2021-11-18] MEDS: Tamsulosin HCl 0.4 MG CAP PO SCH (20:39)
[2021-11-18] MEDS: Multivit, Therapeutic 1 TAB PO SCH (20:39)
[2021-11-19] MEDS: Albuterol 200 PUFF (6.7GM INHALER) INH SCH ×6 (03:19→23:28)
[2021-11-19] MEDS: Mometasone 100 MCG/Formoterol 5 MCG 120 PUFF INHALER INH SCH ×2 (06:06→17:59)
[2021-11-19 06:39] LABS: #Basophils 0.1 thou/uL (0.0-0.2); #Eosinphils 0.1 thou/uL (0.0-0.7); #Monocytes 0.7 thou/uL (0.11-0.59); #Neutrophils 6.7 thou/uL (1.40-6.50); %Basophils 1.1 % (0.0-1.0); %Eosinophils 0.8 % (0.0-10.0); %Lymphocytes 11.7 % (21.0-51.0); %Monocytes 8.1 % (0.0-10.0); %Neutrophils 78.3 % (42.0-75.0); Hemoglobin 16.6 g/dL (14.0-18.0); Mean Corpuscular HGB CONC 32.5 g/dL (32.0-36.0); Mean Corpuscular Hemoglobin 32.2 pg (27.0-31.0); Mean Corpuscular Volume 99.1 fL (78.0-98.0); Mean Platelet Volume 8.5 fL (7.4-10.4); Platelet Count 114 thou/uL (130-400); Red Blood Cell (RBC) Count 5.16 mill/uL (4.70-6.10); White Blood Cell (WBC) Count 8.5 thou/uL (4.8-10.8)
[2021-11-19 07:04] LABS: ALT (SGPT) 57 U/L (8-55); AST (SGOT) 30 U/L (5-34); Albumin 3.5 g/dL (3.4-4.8); Alkaline Phosphatase 45 U/L (40-110); Anion Gap 16 mmol/L (10-20); BUN (Urea Nitrogen) 18 mg/dL (8.4-25.7); Bilirubin, Total 1.7 mg/dL (0.2-1.2); Calc. Creatinine Clearance 108 mL/min (70-130); Calcium 9.3 mg/dL (7.8-10.44); Carbon Dioxide 28 mmol/L (23-31); Chloride 103 mmol/L (98-107); Estimated GFR 92; Globulin 3.1 g/dL (2.4-3.5); Glucose 157 mg/dL (83-110); Potassium 3.9 mmol/L (3.5-5.1); Protein, Total 6.6 g/dL (5.8-8.1); Sodium 143 mmol/L (136-145)
[2021-11-19] MEDS: Cyanocobalamin (Vitamin B-12) 1,000 MCG TAB PO SCH (08:31)
[2021-11-19] MEDS: pyridOXINE 50 MG (B6) TAB PO SCH (08:31)
[2021-11-19] MEDS: Dexamethasone 4 MG TAB PO SCH (08:31)
[2021-11-19] MEDS: Ascorbic Acid 500 mg Chewable Tablet PO SCH (08:32)
[2021-11-19] MEDS: Polyethylene Glycol 3350 17 GM Packet PO SCH ×2 (08:32→20:07)
[2021-11-19] MEDS: Zinc Sulfate 220 MG CAP PO SCH (08:32)
[2021-11-19] MEDS: glipiZIDE 5 MG TAB PO SCH (08:32)
[2021-11-19] MEDS: Aspirin 81 mg Enteric Coated Tablet PO SCH (08:32)
[2021-11-19] MEDS: Furosemide 20 MG TAB PO SCH ×2 (08:32→14:36)
[2021-11-19] MEDS: Carvedilol 6.25 MG TAB PO SCH ×2 (08:32→20:00)
[2021-11-19] MEDS: Senokot S 8.6-50 MG TAB PO SCH ×2 (08:32→19:59)
[2021-11-19] MEDS: guaiFENesin ER 600 MG TAB PO SCH ×2 (08:33→20:00)
[2021-11-19] MEDS: HumaLOG 300 UNITS/3 ML VIAL SC PRN (17:58)
[2021-11-19] MEDS: Cholecalciferol 1,000 UNITS (25 MCG) TAB PO SCH (20:01)
[2021-11-19] MEDS: Multivit, Therapeutic 1 TAB PO SCH (20:01)
[2021-11-19] MEDS: Folic Acid 1 MG TAB PO SCH (20:06)
[2021-11-19] MEDS: Tamsulosin HCl 0.4 MG CAP PO SCH (20:06)
[2021-11-20] MEDS: Albuterol 200 PUFF (6.7GM INHALER) INH SCH ×6 (02:18→22:32)
[2021-11-20] MEDS: Mometasone 100 MCG/Formoterol 5 MCG 120 PUFF INHALER INH SCH ×2 (05:29→17:56)
[2021-11-20] MEDS: Polyethylene Glycol 3350 17 GM Packet PO SCH ×2 (08:18→20:38)
[2021-11-20] MEDS: pyridOXINE 50 MG (B6) TAB PO SCH (08:19)
[2021-11-20] MEDS: guaiFENesin ER 600 MG TAB PO SCH ×2 (08:19→20:37)
[2021-11-20] MEDS: glipiZIDE 5 MG TAB PO SCH (08:19)
[2021-11-20] MEDS: Cyanocobalamin (Vitamin B-12) 1,000 MCG TAB PO SCH (08:19)
[2021-11-20] MEDS: Senokot S 8.6-50 MG TAB PO SCH ×2 (08:19→20:38)
[2021-11-20] MEDS: Ascorbic Acid 500 mg Chewable Tablet PO SCH (08:19)
[2021-11-20] MEDS: Carvedilol 6.25 MG TAB PO SCH ×2 (08:20→20:37)
[2021-11-20] MEDS: Dexamethasone 4 MG TAB PO SCH (08:20)
[2021-11-20] MEDS: Aspirin 81 mg Enteric Coated Tablet PO SCH (08:20)
[2021-11-20] MEDS: Zinc Sulfate 220 MG CAP PO SCH (08:20)
[2021-11-20] MEDS: Furosemide 20 MG TAB PO SCH ×2 (08:20→13:23)
[2021-11-20] MEDS: HumaLOG 300 UNITS/3 ML VIAL SC PRN (12:44)
[2021-11-20] MEDS: Cholecalciferol 1,000 UNITS (25 MCG) TAB PO SCH (20:36)
[2021-11-20] MEDS: Multivit, Therapeutic 1 TAB PO SCH (20:37)
[2021-11-20] MEDS: Tamsulosin HCl 0.4 MG CAP PO SCH (20:37)
[2021-11-20] MEDS: Folic Acid 1 MG TAB PO SCH (20:37)
[2021-11-20] MEDS: Benzonatate 100 MG CAP PO PRN (22:30)
[2021-11-21] MEDS: Albuterol 200 PUFF (6.7GM INHALER) INH SCH ×6 (03:01→21:30)
[2021-11-21] MEDS: Mometasone 100 MCG/Formoterol 5 MCG 120 PUFF INHALER INH SCH ×2 (06:02→17:45)
[2021-11-21 07:01] LABS: #Eosinphils 0.1 thou/uL (0.0-0.7); #Lymphocytes 1.5 thou/uL (1.20-3.40); #Monocytes 0.6 thou/uL (0.11-0.59); #Neutrophils 8.7 thou/uL (1.40-6.50); %Basophils 0.2 % (0.0-1.0); %Eosinophils 0.9 % (0.0-10.0); %Lymphocytes 13.5 % (21.0-51.0); %Monocytes 5.2 % (0.0-10.0); %Neutrophils 80.2 % (42.0-75.0); Hemoglobin 17.1 g/dL (14.0-18.0); Mean Corpuscular HGB CONC 32.4 g/dL (32.0-36.0); Mean Corpuscular Hemoglobin 32.8 pg (27.0-31.0); Mean Platelet Volume 8.5 fL (7.4-10.4); Platelet Count 150 thou/uL (130-400); Red Blood Cell (RBC) Count 5.22 mill/uL (4.70-6.10); White Blood Cell (WBC) Count 10.8 thou/uL (4.8-10.8)
[2021-11-21 07:19] LABS: ALT (SGPT) 85 U/L (8-55); AST (SGOT) 50 U/L (5-34); Albumin 3.8 g/dL (3.4-4.8); Alkaline Phosphatase 53 U/L (40-110); Anion Gap 15 mmol/L (10-20); BUN (Urea Nitrogen) 19 mg/dL (8.4-25.7); Bilirubin, Total 2.5 mg/dL (0.2-1.2); Calc. Creatinine Clearance 89 mL/min (70-130); Calcium 9.5 mg/dL (7.8-10.44); Carbon Dioxide 28 mmol/L (23-31); Chloride 100 mmol/L (98-107); Estimated GFR 85; Globulin 3.3 g/dL (2.4-3.5); Glucose 188 mg/dL (83-110); Protein, Total 7.1 g/dL (5.8-8.1); Sodium 139 mmol/L (136-145)
[2021-11-21] MEDS: Zinc Sulfate 220 MG CAP PO SCH (08:09)
[2021-11-21] MEDS: guaiFENesin ER 600 MG TAB PO SCH ×2 (08:09→21:29)
[2021-11-21] MEDS: pyridOXINE 50 MG (B6) TAB PO SCH (08:09)
[2021-11-21] MEDS: Dexamethasone 4 MG TAB PO SCH (08:09)
[2021-11-21] MEDS: Furosemide 20 MG TAB PO SCH ×2 (08:09→13:58)
[2021-11-21] MEDS: Polyethylene Glycol 3350 17 GM Packet PO SCH ×2 (08:09→21:30)
[2021-11-21] MEDS: Carvedilol 6.25 MG TAB PO SCH ×2 (08:09→21:29)
[2021-11-21] MEDS: Cyanocobalamin (Vitamin B-12) 1,000 MCG TAB PO SCH (08:09)
[2021-11-21] MEDS: glipiZIDE 5 MG TAB PO SCH (08:09)
[2021-11-21] MEDS: Ascorbic Acid 500 mg Chewable Tablet PO SCH (08:09)
[2021-11-21] MEDS: Aspirin 81 mg Enteric Coated Tablet PO SCH (08:09)
[2021-11-21] MEDS: Senokot S 8.6-50 MG TAB PO SCH ×2 (08:10→21:29)
[2021-11-21] MEDS: HumaLOG 300 UNITS/3 ML VIAL SC PRN ×2 (11:57→16:15)
[2021-11-21] MEDS: Folic Acid 1 MG TAB PO SCH (21:28)
[2021-11-21] MEDS: Cholecalciferol 1,000 UNITS (25 MCG) TAB PO SCH (21:28)
[2021-11-21] MEDS: Multivit, Therapeutic 1 TAB PO SCH (21:28)
[2021-11-21] MEDS: Benzonatate 100 MG CAP PO PRN (21:29)
[2021-11-21] MEDS: Tamsulosin HCl 0.4 MG CAP PO SCH (21:29)
[2021-11-22] MEDS: Albuterol 200 PUFF (6.7GM INHALER) INH SCH ×4 (02:56→13:47)
[2021-11-22] MEDS: Mometasone 100 MCG/Formoterol 5 MCG 120 PUFF INHALER INH SCH (05:55)
[2021-11-22] MEDS: Zinc Sulfate 220 MG CAP PO SCH (08:05)
[2021-11-22] MEDS: Aspirin 81 mg Enteric Coated Tablet PO SCH (08:06)
[2021-11-22] MEDS: Carvedilol 6.25 MG TAB PO SCH (08:06)
[2021-11-22] MEDS: guaiFENesin ER 600 MG TAB PO SCH (08:06)
[2021-11-22] MEDS: Furosemide 20 MG TAB PO SCH (08:06)
[2021-11-22] MEDS: glipiZIDE 5 MG TAB PO SCH (08:06)
[2021-11-22] MEDS: Ascorbic Acid 500 mg Chewable Tablet PO SCH (08:06)
[2021-11-22] MEDS: Dexamethasone 4 MG TAB PO SCH (08:06)
[2021-11-22] MEDS: Cyanocobalamin (Vitamin B-12) 1,000 MCG TAB PO SCH (08:06)
[2021-11-22] MEDS: pyridOXINE 50 MG (B6) TAB PO SCH (08:06)
[2021-11-22] MEDS: Senokot S 8.6-50 MG TAB PO SCH (08:07)
[2021-11-22] MEDS: Polyethylene Glycol 3350 17 GM Packet PO SCH (08:07)
[2021-11-22 12:28] VITALS: BP 119/74; TEMP 97.3
[2021-11-22] MEDS: HumaLOG 300 UNITS/3 ML VIAL SC PRN (12:48)
== END 2021-11-22 13:55 | DRG 177 ==
LOC: ERS 19:07 → ERHOLD 11-14 00:11 → CCU 11-14 04:38 → T4-B 11-15 13:36
PROVIDERS: ADMIT Student in an Organized Health Care Education/Training Program; ATTEND Family Medicine
PROC: 8E0ZXY6 Isolation (ICD-10-PCS; principal; 2021-11-14)
PROC: XW033E5 Introduction of Remdesivir Anti-infective into Peripheral Vein, Percutaneous Approach, New Technology Group 5 (ICD-10-PCS; 2021-11-14)
DX: U07.1 COVID-19 (principal); J96.01 Acute respiratory failure with hypoxia; J12.82 Pneumonia due to coronavirus disease 2019; I50.23 Acute on chronic systolic (congestive) heart failure; N17.9 Acute kidney failure, unspecified; J44.0 Chronic obstructive pulmonary disease with (acute) lower respiratory infection; J44.1 Chronic obstructive pulmonary disease with (acute) exacerbation; I42.9 Cardiomyopathy, unspecified; I13.0 Hypertensive heart and chronic kidney disease with heart failure and stage 1 through stage 4 chronic kidney disease, or unspecified chronic kidney disease; F17.210 Nicotine dependence, cigarettes, uncomplicated; I25.10 Atherosclerotic heart disease of native coronary artery without angina pectoris; N18.2 Chronic kidney disease, stage 2 (mild); D69.6 Thrombocytopenia, unspecified; E11.22 Type 2 diabetes mellitus with diabetic chronic kidney disease; E66.9 Obesity, unspecified; K59.00 Constipation, unspecified; Z79.82 Long term (current) use of aspirin; Z79.51 Long term (current) use of inhaled steroids; Z79.899 Other long term (current) drug therapy; Z95.1 Presence of aortocoronary bypass graft; Z68.34 Body mass index [BMI] 34.0-34.9, adult
CPT/HCPCS: 36415; 36416; 36600; 71045; 80048; 80053; 81003; 82553; 82805; 83605; 83690; 83735; 83880; 84100; 84484; 85025; 87040; 87086; 93005; 93306; 94664; 96374; 96375; C9113; J0248; J0456; J0696; J1100; J1815; J1940; J2930; J3475; J7050; J8540; U0002

== ENCOUNTER 2022-01-06 09:48 | Outpatient (CLI) | payer MEDICARE, MEDICAID | END 2022-01-06 09:49 | disposition home or self-care (01) | LOC: BICRAD 09:48 | PROVIDERS: ATTEND Nurse Practitioner Family | DX: Z87.01 Personal history of pneumonia (recurrent) (principal); I50.9 Heart failure, unspecified | CPT/HCPCS: 71046 ==

== ENCOUNTER 2022-02-28 14:48 | Outpatient (CLI) | payer MEDICARE, MEDICAID | END 2022-02-28 14:49 | disposition home or self-care (01) | LOC: RAD 14:48 | PROVIDERS: ATTEND Internal Medicine Critical Care Medicine | DX: R06.00 Dyspnea, unspecified (principal); I51.7 Cardiomegaly; J98.4 Other disorders of lung | CPT/HCPCS: 36415; 71046; 80048 ==

== ENCOUNTER 2023-02-08 10:28 | Outpatient (CLI) | payer MEDICARE, MEDICAID | END 2023-02-08 10:29 | disposition home or self-care (01) | LOC: BICRAD 10:28 | PROVIDERS: ATTEND Nurse Practitioner Family | DX: J44.9 Chronic obstructive pulmonary disease, unspecified (principal); I51.7 Cardiomegaly; R09.89 Other specified symptoms and signs involving the circulatory and respiratory systems | CPT/HCPCS: 71046 ==

== ENCOUNTER 2023-06-15 10:55 | Emergency (ER) | payer MEDICARE, MEDICAID | END 2023-06-15 12:10 | disposition home or self-care (01) | LOC: ERS 10:55 | DX: I11.0 Hypertensive heart disease with heart failure (principal); I50.9 Heart failure, unspecified; J44.9 Chronic obstructive pulmonary disease, unspecified; R09.02 Hypoxemia; I25.10 Atherosclerotic heart disease of native coronary artery without angina pectoris; E11.9 Type 2 diabetes mellitus without complications; F17.200 Nicotine dependence, unspecified, uncomplicated; Z75.8 Other problems related to medical facilities and other health care | CPT/HCPCS: 93005; 99284 ==

== ENCOUNTER 2023-09-17 03:21 | Inpatient (IN) | payer MEDICARE, MEDICAID ==
[2023-09-17 03:53] LABS: Bilirubin Negative (Negative); Blood, Urine Trace (Negative); Glucose, Urine (Dipstick) >=1000 mg/dL (Negative); Ketone, Urine Negative (Negative); Leukocyte Small (Negative); Nitrite Negative (Negative); Protein, Urine (Dipstick) Negative (Neg-Trace); Urobilinogen 0.2 mg/dL (Less than 2)
[2023-09-17 03:57] LABS: Bacteria/HPF 4+ HPF (None Seen); CAUTI Indications for Culture Alt mental st,lethar; RBC/HPF 0-3 HPF (0-3); Squamous Epithelial None Seen HPF (0-3); WBC/HPF Greater than 50 HPF (0-3)
[2023-09-17 03:58] LABS: Clarity Cloudy (Clear); Sperm/HPF 1+ HPF (None Seen)
[2023-09-17 03:59] LABS: Urine Culture Reflex Yes Yes
[2023-09-17] MEDS ORDERED: cefTRIAXone (ROCEPHIN) 2 GM VIAL ONE (04:10)
[2023-09-17] MEDS ORDERED: Ipratropium/Albuterol 3 ML NEB ONE (04:10)
[2023-09-17] MEDS ORDERED: Sodium Chloride 0.9% 100 ML ONE (04:11)
[2023-09-17 04:12] LABS: #Basophils 0.04 10x3/uL (0.0-0.2); %Basophils 0.5 % (0.0-1.0); %Eosinophils 1.5 % (0.0-10.0); %Lymphocytes 11.2 % (21.0-51.0); %Neutrophils 76.4 % (42.0-75.0); Hematocrit 46.4 % (42.0-52.0); Hemoglobin 13.8 g/dL (14.0-18.0); Mean Corpuscular HGB CONC 29.7 g/dL (32.0-36.0); Mean Corpuscular Hemoglobin 31.1 pg (27.0-31.0); Mean Corpuscular Volume 104.5 fL (78.0-98.0); Mean Platelet Volume 10.4 fL (7.4-10.4); Platelet Count 108 10x3/uL (130-400); RBC Distribution Width 13.7 % (11.5-14.5); Red Blood Cell (RBC) Count 4.44 mill/uL (4.70-6.10)
[2023-09-17 04:25] LABS: ALT (SGPT) 44 U/L (8-55); AST (SGOT) 19 U/L (5-34); Albumin 3.4 g/dL (3.4-4.8); Alkaline Phosphatase 46 U/L (40-110); Anion Gap 13 mmol/L (10-20); BUN (Urea Nitrogen) 30 mg/dL (8.4-25.7); Bilirubin, Total 1.3 mg/dL (0.2-1.2); Calc. Creatinine Clearance 0 mL/min (70-130); Calcium 8.9 mg/dL (7.8-10.44); Carbon Dioxide 40 mmol/L (23-31); Chloride 97 mmol/L (98-107); Estimated GFR 72; Glucose 141 mg/dL (83-110); Potassium 3.8 mmol/L (3.5-5.1); Protein, Total 6.4 g/dL (5.8-8.1); Sodium 146 mmol/L (136-145)
[2023-09-17 04:37] LABS: Macrocytosis SLIGHT = 6-15 cells HPF (0-5); Platelet Adequacy Comment Platelets Decreased; Polychromasia SLIGHT = 2-3 cells HPF (0-2)
[2023-09-17 05:11] LABS: Troponin I 0.069 ng/mL (< 0.028)
[2023-09-17 05:13] LABS: Base Excess 9.6 mEq/L (-2.0 to +3.0); Calcium, Ionized (venous) 1.05 mmol/L (1.16-1.32); Chloride (VBG) 95 mmol/L (98-106); Hematocrit-VBG 44 % (42.0-52.0); Hemoglobin (Hb) 14.8 g/dL (12.6-17.4); Potassium (VBG) 3.78 mmol/L (3.70-5.30); Sodium 143 mmol/L (133-146); pH (venous) 7.328 (7.32-7.43)
[2023-09-17] MEDS ORDERED: Potassium Chloride 20 MEQ TAB ONE (05:58)
[2023-09-17] MEDS ORDERED: Furosemide 20 MG (2 mL) VIAL ONE (05:58)
[2023-09-17] MEDS ORDERED: Aspirin Chewable 81 MG TAB ONE (05:58)
[2023-09-17] MEDS ORDERED: Azithromycin 500 MG VIAL ONE (05:59)
[2023-09-17] MEDS ORDERED: Acetaminophen 325 MG TAB PO PRN (07:30)
[2023-09-17] MEDS ORDERED: Senokot S 8.6-50 MG TAB PO PRN (07:30)
[2023-09-17] MEDS ORDERED: Dextrose 50% Abboject 50 ML SYRINGE SLOW IVP PRN (07:39)
[2023-09-17] MEDS ORDERED: HumaLOG 300 UNITS/3 ML VIAL SC PRN (07:39)
[2023-09-17] MEDS ORDERED: Dextrose 5% in Water 1,000 ML IV PRN (07:39)
[2023-09-17] MEDS ORDERED: Glucagon 1 MG/ML KIT IM PRN (07:39)
[2023-09-17 07:54] LABS: Troponin I 0.077 ng/mL (< 0.028)
[2023-09-17] MEDS: Pantoprazole DR 40 MG TAB PO SCH (09:51)
[2023-09-17 10:44] LABS: Troponin I 0.074 ng/mL (< 0.028)
[2023-09-17] MEDS: Ipratropium/Albuterol 3 ML NEB NEB SCH (12:45)
[2023-09-17 13:30] LABS: Anion Gap 11 mmol/L (10-20); BUN (Urea Nitrogen) 23 mg/dL (8.4-25.7); Calc. Creatinine Clearance 0 mL/min (70-130); Calcium 9.3 mg/dL (7.8-10.44); Carbon Dioxide 45 mmol/L (23-31); Chloride 97 mmol/L (98-107); Estimated GFR 86; Glucose 132 mg/dL (83-110); Potassium 4.3 mmol/L (3.5-5.1); Sodium 149 mmol/L (136-145)
[2023-09-17 18:36] VITALS: BMI 41.6
[2023-09-18 05:16] LABS: #Basophils 0.05 10x3/uL (0.0-0.2); %Basophils 0.7 % (0.0-1.0); %Eosinophils 2.4 % (0.0-10.0); %Lymphocytes 13.7 % (21.0-51.0); %Monocytes 10.2 % (0.0-10.0); %Neutrophils 72.9 % (42.0-75.0); Hematocrit 46.7 % (42.0-52.0); Hemoglobin 13.8 g/dL (14.0-18.0); Mean Corpuscular HGB CONC 29.6 g/dL (32.0-36.0); Mean Corpuscular Volume 104.9 fL (78.0-98.0); Mean Platelet Volume 10.6 fL (7.4-10.4); Platelet Count 106 10x3/uL (130-400); RBC Distribution Width 13.8 % (11.5-14.5); Red Blood Cell (RBC) Count 4.45 mill/uL (4.70-6.10)
[2023-09-18] MEDS: Azithromycin 500 MG in Sodium Chloride 0.9% 250 ML 250 ML IVPB SCH (05:28)
[2023-09-18 05:48] LABS: ALT (SGPT) 38 U/L (8-55); AST (SGOT) 19 U/L (5-34); Albumin 3.7 g/dL (3.4-4.8); Alkaline Phosphatase 46 U/L (40-110); Anion Gap 13 mmol/L (10-20); BUN (Urea Nitrogen) 16 mg/dL (8.4-25.7); Bilirubin, Total 1.7 mg/dL (0.2-1.2); Calc. Creatinine Clearance 118 mL/min (70-130); Calcium 9.7 mg/dL (7.8-10.44); Carbon Dioxide 41 mmol/L (23-31); Cardiac Risk 2.6 (Less than 4.5); Chloride 98 mmol/L (98-107); Cholesterol 88 mg/dl (< 200 Desired); Estimated GFR 92; Globulin 3.1 g/dL (2.4-3.5); Glucose 99 mg/dL (83-110); HDL Cholesterol 34 mg/dL (>60 Neg Risk); LDL Cholesterol, Calculated 34 mg/dL; Potassium 4.2 mmol/L (3.5-5.1); Protein, Total 6.8 g/dL (5.8-8.1); Sodium 148 mmol/L (136-145); Triglycerides 102 mg/dL (Less than 150)
[2023-09-18] MEDS: cefTRIAXone\\ROCEPHIN 2 GM in Sodium Chloride 0.9% 100 ML IVPB SCH (09:55)
[2023-09-18] MEDS: Furosemide 20 MG (2 mL) VIAL SLOW IVP SCH (09:55)
[2023-09-18 10:42] VITALS: BMI 41.6
[2023-09-18] MEDS: Ipratropium/Albuterol 3 ML NEB NEB SCH (11:57)
[2023-09-18 14:40] LABS: Influenza A by NAA Not Detected (NotDetected); Influenza B by NAA Not Detected (NotDetected); RSV by NAA Not Detected (NotDetected); SARS-CoV-2 NAA Rapid Test Not Detected (NotDetected)
[2023-09-18] MEDS: Carvedilol 25 MG TAB PO SCH (17:20)
[2023-09-18] MEDS ORDERED: Ipratropium/Albuterol 3 ML NEB NEB SCH (19:00)
[2023-09-18] MEDS: Atorvastatin Calcium 20 MG TAB PO SCH (20:40)
[2023-09-19] MEDS: Gabapentin 300 MG CAP PO SCH (08:37)
[2023-09-19] MEDS: Aspirin 81 mg Enteric Coated Tablet PO SCH (08:38)
[2023-09-19] MEDS: Tamsulosin HCl 0.4 MG CAP PO SCH (08:38)
[2023-09-19] MEDS: Losartan 25 MG TAB PO SCH (08:38)
[2023-09-19] MEDS: Empagliflozin 10 MG TAB PO SCH (08:38)
[2023-09-20 06:06] LABS: #Basophils 0.04 10x3/uL (0.0-0.2); %Basophils 0.6 % (0.0-1.0); %Eosinophils 2.8 % (0.0-10.0); %Lymphocytes 15.1 % (21.0-51.0); %Monocytes 9.4 % (0.0-10.0); %Neutrophils 71.7 % (42.0-75.0); Hematocrit 47.4 % (42.0-52.0); Hemoglobin 14.2 g/dL (14.0-18.0); Mean Corpuscular Hemoglobin 30.1 pg (27.0-31.0); Mean Corpuscular Volume 100.6 fL (78.0-98.0); Mean Platelet Volume 10.8 fL (7.4-10.4); Platelet Count 97 10x3/uL (130-400); RBC Distribution Width 13.8 % (11.5-14.5); Red Blood Cell (RBC) Count 4.71 mill/uL (4.70-6.10)
[2023-09-20 07:05] LABS: Anion Gap 16 mmol/L (10-20); BUN (Urea Nitrogen) 11 mg/dL (8.4-25.7); Calc. Creatinine Clearance 118 mL/min (70-130); Calcium 9.4 mg/dL (7.8-10.44); Carbon Dioxide 36 mmol/L (23-31); Chloride 98 mmol/L (98-107); Estimated GFR 92; Glucose 82 mg/dL (83-110); Potassium 4.7 mmol/L (3.5-5.1); Sodium 145 mmol/L (136-145)
[2023-09-20] MEDS: Cefdinir 300 MG CAP PO SCH (10:25)
[2023-09-20 12:00] VITALS: BP 125/68; TEMP 98
[2023-09-20] MEDS ORDERED: Cefdinir 300 MG CAP PO SCH (21:00)
== END 2023-09-20 12:27 | disposition home health service (06) | DRG 291 ==
LOC: ERS 03:21 → SUATTDRO 03:21 → 2NO 06:51 → T4-B 09-19 13:32
PROVIDERS: ADMIT Student in an Organized Health Care Education/Training Program; ATTEND Internal Medicine
DX: I11.0 Hypertensive heart disease with heart failure (principal); G93.41 Metabolic encephalopathy; J96.01 Acute respiratory failure with hypoxia; I50.23 Acute on chronic systolic (congestive) heart failure; N39.0 Urinary tract infection, site not specified; J44.1 Chronic obstructive pulmonary disease with (acute) exacerbation; J21.8 Acute bronchiolitis due to other specified organisms; I42.9 Cardiomyopathy, unspecified; I25.10 Atherosclerotic heart disease of native coronary artery without angina pectoris; J45.909 Unspecified asthma, uncomplicated; E11.9 Type 2 diabetes mellitus without complications; J44.9 Chronic obstructive pulmonary disease, unspecified; Z95.1 Presence of aortocoronary bypass graft
CPT/HCPCS: 0241U; 36415; 36416; 70450; 71045; 80048; 80053; 80061; 81001; 82805; 83605; 83880; 84484; 85025; 87040; 87077; 87086; 87186; 93005; 93306; 94640; 96374; 96375; J0456; J0696; J1940; J3490; J7050; J7620

== ENCOUNTER 2024-03-12 08:54 | Outpatient (CLI) | payer MEDICARE, MEDICAID | END 2024-03-12 08:55 | disposition home or self-care (01) | LOC: RAD 08:54 | PROVIDERS: ATTEND Internal Medicine Critical Care Medicine | DX: R06.00 Dyspnea, unspecified (principal); I51.7 Cardiomegaly | CPT/HCPCS: 71046 ==

== ENCOUNTER 2025-03-12 10:01 | Outpatient (CLI) | payer MEDICARE, MEDICAID | END 2025-03-12 10:02 | disposition home or self-care (01) | LOC: RAD 10:01 | PROVIDERS: ATTEND Internal Medicine Critical Care Medicine | DX: R06.00 Dyspnea, unspecified (principal); I51.7 Cardiomegaly; R09.89 Other specified symptoms and signs involving the circulatory and respiratory systems | CPT/HCPCS: 71046 ==